=== PATIENT | female | born 1955 | race Caucasian/White ===

== ENCOUNTER 2024-04-15 19:08 | Day surgery (SDC) | payer MEDICARE, MEDICAID, SELFPAY ==
[2024-04-15] VITALS (8 sets, daily range): BP systolic 103–147; BP diastolic 61–93; PULSE 58–82; RESP 18–21; TEMP 36.1; O2SAT 96–99; BMI 33.7
--- NOTE | 2024-04-15 19:45 | SUR.PHASEII ---
Addendum entered by Ca Humphrey RN 04/15/24 20:00: Pt. is receiving 02 via trach/vent at 40%. 02 saturation at 97%. Original Note: Pt. arrived to recovery via SHASHI sullivan at bedside, pt. is non-verbal, eyes closed, trach in place, pt. not receiving supplemental 02 at this time, VSS, lung sounds clear, with tracheal sounds noted on inspiration, peg tube present and intact upon arrival to recovery. Report received from Laisha GLORIA.
--- NOTE | 2024-04-15 20:06 | SUR.PHASEII ---
Called and gave report on pt. s/p procedure to Tonia GLORIA in subacute unit.
--- NOTE | 2024-04-15 20:12 | SUR.PHASEII ---
Pt. transferred to subacute room 125 via SHASHI sullivan at bedside, pt. connected to vent, 02 saturation at 97%, no signs of pain or nausea at this time, IV flushed and patent, Tonia GLORIA assumed care of pt.
== END 2024-04-15 20:12 | disposition skilled nursing facility (03) ==
PROVIDERS: Referring Provider Specialist; Visit Provider Specialist
PROC: (CPT 43239; principal; 2024-04-15 18:30)
DX: K20.91 Esophagitis, unspecified with bleeding (principal); K29.71 Gastritis, unspecified, with bleeding; D62 Acute posthemorrhagic anemia
CPT/HCPCS: 43235; J2250; J3010

== ENCOUNTER 2024-04-28 09:59 | Inpatient (IN) | payer MEDICARE, MEDICAID, SELFPAY ==
[2024-04-28] VITALS (23 sets, daily range): BP systolic 74–131; BP diastolic 46–90; PULSE 95–123; RESP 20–100; TEMP 36–37.4; O2SAT 97–100
--- NOTE | 2024-04-28 10:36 | XR_ITS ---
Examination: AP chest single view Technique one AP portable upright chest single view Exam date and time: April 28, 2024 1040 hours Comparison April 25, 2021 INDICATIONS: Difficulty breathing today. FINDINGS: Mild prominence left ventricle Opacity left base consistent with pneumonia obscuring detail left hemidiaphragm Mild vascular congestion Tracheostomy tube tip 5.4 cm above kunal IMPRESSION: Left base pneumonia
--- NOTE | 2024-04-28 10:42 | PD.EDRECHK ---
ED Recheck Abnl Lab Rx-RME/HPI General Chief Complaint: General Adult/Misc Complain Stated Complaint: LOW HEMOGLOBIN, NEEDS BLOOD TRANSFUSION Time Seen by Provider: 04/28/24 10:35 Arrival date/time: 04/28/24 09:59 RME / HPI RME / HPI narrative: 69 year old female with history of anoxic brain damage, persistent vegetative state, chronic respiratory failure, s/p tracheostomy with ventilator dependance, s/p G-tube placement, hypertension presents to the ED brought in from the subacute unit within this facility for evaluation of low hemoglobin levels. Per RN, staff at subacute reported labs today revealed a hemoglobin of 3.6 and hematocrit of 12.4. Per RN, patient was sent here for blood transfusion. Related Data Home Medications ?Medication ?Instructions ?Recorded ?Confirmed clonazepam 0.5 mg disintegrating 0.5 mg feeding tube TID 04/14/21 04/26/21 tablet furosemide 20 mg tablet (Lasix) 20 mg feeding tube QDAY 04/14/21 04/26/21 levetiracetam 750 mg tablet 750 mg PO BID 04/14/21 04/26/21 (Keppra) multivitamin with minerals 1 tab PO DAILY 04/14/21 04/26/21 acetaminophen 325 mg tablet 650 mg PO QID PRN Pain 04/16/21 04/26/21 (Tylenol) bisacodyl 10 mg rectal suppository 10 mg UT DAILY PRN Constipation 04/16/21 04/26/21 (Dulcolax (bisacodyl)) sodium phosphates 19 gram-7 118 ml UT QDAY PRN Constipation 04/16/21 04/26/21 gram/118 mL enema (Fleet Enema) Previous Rx's ?Medication ?Instructions ?Recorded amiodarone 200 mg tablet 200 mg PO BID 30 days #60 tabs 04/19/21 aspirin 81 mg capsule 81 mg PO QDAY #30 caps 04/19/21 amoxicillin 500 mg-potassium 1 tab PO Q8H #2 tabs 04/27/21 clavulanate 125 mg tablet (Augmentin) doxycycline calcium 50 mg/5 mL 100 mg (10 mL) PO QDAY #473 mL 04/27/21 oral syrup Allergies Allergy/AdvReac Type Severity Reaction Status Date / Time No Known Allergies Allergy Verified 04/15/24 19:15 Review of Systems Review of Systems ROS Unobtainable: unobtainable due to medical condition Past Medical History Past Medical History NEUROLOGIC: Positive Neurological Disorders (obtained from medical records) and Seizures CARDIAC: Positive Hypertension RESPIRATORY: Positive Asthma GASTROINTESTINAL: Positive Gastrointestinal Disorders and Gastroesophageal Reflux Disease OTHER HISTORY: Positive Blood Transfusions Social History SMOKING STATUS: Unknown if ever smoked ED Exam Narrative Physical exam: Patient is ventilator dependent [place] morbidly obese does not give eye contact and this is the baseline mental status as reported from the subacute where she came from Physical Exam:? General:?? ? Patient is from subacute The vital signs were reviewed. The patient is arousable with verbal and painful stimuli but immediately falls back to sleep and becomes inattentive. Patient had a spontaneous respirations that required no assistance at this time . O2 sats are adequate at the present time. Head & Scalp:?? ? Normocephalic, atraumatic. Face:?? ? Patient is very pale [place] and obese appears normal and is without lesions, deformity. No apparent trauma Ears:??? Left external pinna appears normal. Right external pinna appears normal. Eyes:?? ? The sclera is anicteric. The Left and Right Orbit/Lid/Conjunctiva appears normal without swelling, discoloration or injection. Nose: ? ? The nose is without deformity, discharge or tenderness; Throat: ? ? Appears normal.? The mucous membranes are pink and moist without exudates, redness or mass seen.? The tongue appears normal. Neck: The neck is supple and no apparent mass or adenopathy. Chest: The chest wall is normal in size and symmetry and has no chest wall tenderness or crepitus. The patient displays adequate ventilator effort without retractions, accessory muscle use. Patient has adequate air movement bilaterally with no wheezes and no rales. ? Cardiovascular: Regular rate and rhythm; No murmurs, rubs, or gallops; Gastrointestinal: The abdomen appears obese there is no obvious response to palpation. No obvious hernias or mass. The abdomen is soft and benign, non-distended, with no pain, no guarding and no rebound tenderness.? Bowel sounds are present and normal sounding.? No CVA tenderness. Genitourinary: No apparent injury or trauma. Back/Spine: No apparent injury or trauma Extremities/Musculoskeletal/lymphatic:? ? ? The bilateral upper and lower extremities are warm. There is no evidence of arterial? insufficiency. There is no morbid obese extremities Skin:? The skin is warm, dry and intact.? No rashes. No petechia. No purpura. No abnormal bruising.? The color is appropriate with no cyanosis. Mental status/Psychiatric: Mental status is obtunded no further evaluation can be made Neurological:? The patient is obtunded. Minimal response to pain baseline nonverbal Course Quality Measures none Orders Category Date Time Status Admit to Inpatient Status Routine Admission 04/28/24 11:23 Active Patient Condition Routine Admission 04/28/24 11:23 Ordered Insert IV NOW Care 04/28/24 10:36 Active Insert IV NOW Care 04/28/24 10:36 Active Notify provider NEEDED Care 04/28/24 11:23 Active Transfuse,blood/blood products NOW Care 04/28/24 10:36 Active XR chest 1V portable Stat Exams 04/28/24 10:36 Completed CBC Stat Lab 04/28/24 10:51 Received Comprehensive Metabolic Panel Stat Lab 04/28/24 10:51 Completed Lactate (Lactic Acid) Stat Lab 04/28/24 10:51 Results Lipase Stat Lab 04/28/24 10:51 Completed Prothrombin Time with INR Stat Lab 04/28/24 10:51 Completed Red Blood Cells Stat Lab 04/28/24 10:51 Results Type and Screen Stat Lab 04/28/24 10:51 Results Urinalysis Stat Lab 04/28/24 10:36 Ordered Urinalysis, C/S if Indicated Stat Lab 04/28/24 10:36 Ordered Venous Blood Gas Stat Lab 04/28/24 10:51 Completed Sodium Chloride 0.9% 1000 ml [Ns] 1,000 ml Med 04/28/24 10:45 Active IV 100 mls/hr Code Status Routine Oth 04/28/24 11:22 Ordered Vital Signs Vital signs: Vital Signs Temperature 99.0 F 04/28/24 10:09 Pulse Rate 114 H 04/28/24 10:09 Respiratory Rate 24 H 04/28/24 10:09 Blood Pressure 101/63 04/28/24 10:09 Pulse Oximetry (%) 100 04/28/24 10:09 Oxygen Delivery Method Mechanical Ventilation 04/28/24 10:09 Pulse ox is 100% on mechanical ventilator which is adequate. Recheck / Abnormal Lab / Rx MDM Narrative MDM Narrative:: Patient was sent from [facility] for severe anemia with no known source of blood loss. Hemoglobin was reported to be 3.6. Patient on need to come in the hospital be transfused. Note the patient is tachycardic. Rectal exam was done which was heme positive. Spoke with the resident on-call for Dr. Cuellar and they will be admitting the patient for transfusions. They stated they would also consult with Dr. Del Cid decide if she is [place] be a candidate for scoping note the stool was brown in color and there is no hematochezia reported but it was strongly positive. Patient has low hemoglobin of 3.6 from this morning's lab draw was sent here from [facility] follow-up repeat hemoglobin is still pending PT/INR within normal limits venous blood gas pH is 7.61 with respiratory alkalosis. Sodium 136 potassium 4.1 CO2 is elevated 32.5 anion gap is 6 BUN is elevated 55 creatinine 0.9 consistent with prerenal azotemia probably dehydration secondary to anemia. Lactic acid is 2.9 again again presumed secondary to severe anemia as there is no obvious infection source clinically Evidently patient has no decision maker is not conserved and is being treated in subacute therefore we will give blood accordingly and get her hemoglobin is up and I asked the hospitalist to address scoping and further workup with Dr. Del Cid Patient data External records reviewed:: [facility] previous records (I reviewed labs performed at [facility] today and H&P from 04/15/2024) Clinical information provided by:: other (specify) (RN) Social determinants that could affect healthcare access:: housing (Subacute resident ) Patient has the following chronic illnesses:: anoxic brain damage, persistent vegetative state, chronic respiratory failure, s/p tracheostomy with ventilator dependance, s/p G-tube placement, hypertension How is presenting disease/condition affected by chronic disease/condition?: exacerbated by Evaluation data The following diagnostics were reviewed and interpreted by me:: lab results Lab and/or radiology exams considered but not ordered:: None Interpretation Summary: Ordering Physician: Nilesh Winters MD Date of Service: 04/28/24 Procedure(s): XR chest 1V portable Accession Number(s): [id number] cc: Nilesh Winters MD; Sandeep Saenz MD~ Examination: AP chest single view Technique one AP portable upright chest single view Exam date and time: April 28, 2024 1040 hours Comparison April 25, 2021 INDICATIONS: Difficulty breathing today. FINDINGS: Mild prominence left ventricle Opacity left base consistent with pneumonia obscuring detail left hemidiaphragm Mild vascular congestion Tracheostomy tube tip 5.4 cm above kunal IMPRESSION: Left base pneumonia Dictated By: Sandeep Saenz MD Signed By: <Electronically signed by Sandeep Saenz MD in OV> 04/28/24 1055 Medications / Prescriptions Medications or Prescriptions considered but not ordered:: None Medication administrations:: Medication Administration History Acetaminophen (Acetaminophen 325 Mg Tablet) 650 mg PO Q6H PRN PRN Reason: Fever >101.5 Stop: 05/28/24 11:23 Acetaminophen (Acetaminophen 325 Mg Tablet) 650 mg PO Q6H PRN PRN Reason: PAIN SCALE 1-3 (mild Stop: 05/28/24 11:23 Albuterol/Ipratropium (Albuterol/Ipratropium (Duoneb) Rt Aria 3 Ml Nebu) 3 ml INH Q6HRRT PRN PRN Reason: wheezing Stop: 05/28/24 12:59 Dextrose (Dextrose 50%-Water Inj 50 Ml Syringe) 25 ml IV Q15MIN PRN PRN Reason: BG 50-70 responsive npo pt Stop: 05/28/24 11:38 Dextrose (Dextrose 50%-Water Inj 50 Ml Syringe) 50 ml IV Q15MIN PRN PRN Reason: BG <50 OR BG <70 & pt unresponsive Stop: 05/28/24 11:38 Glucagon (Glucagon Inj 1 Mg Vial) 1 mg IM Q15MIN PRN PRN Reason: BG <70, and no IV access Sodium Chloride (Ns) 1,000 mls @ 100 mls/hr IV .Q10H MARTINEZ Stop: 05/28/24 10:44 Piperacillin/Tazobactam/Dextrose (Zosyn) 3.375 gm in 50 mls @ 12.5 mls/hr IV Q8HR MARTINEZ Stop: 05/05/24 21:59 Ondansetron HCl (Ondansetron Inj 2 Mg/Ml Inj 2 Ml) 4 mg IV Q6H PRN; Protocol PRN Reason: NAUSEA OR VOMITING Stop: 05/28/24 11:23 Pantoprazole Sodium (Pantoprazole Inj 40 Mg Vial) 40 mg IVP Q12HR MARTINEZ Stop: 05/28/24 20:59 Discontinued Medications Piperacillin/Tazobactam/Dextrose (Zosyn) 3.375 gm in 50 mls @ 100 mls/hr IV X1 ONE Stop: 04/28/24 12:14 Last Infusion: 04/28/24 12:48 Dose: Infused Documented By: Admin: 04/28/24 12:00 Dose: 100 mls/hr Documented By: GM Polyethylene Glycol/Electrolytes (Na Lopez/Nahco3/Carl/Peg (Golytely) 4,000 Ml Btl) 4,000 ml GT X1 ONE Stop: 04/28/24 11:40 See above Consultations Consultation(s) initiated? (list below): Yes Consultation #1 (Physician, Specialty, Details): I spoke with resident Dr. Mann working with Dr. Cuellar. Discussed patients PMHx, HPI, ED course, exam findings, labs, and radiology results. The hospitalist agree to accept the patient for admission. Time: 11:18 Diagnosis Recheck Differential Diagnosis: other (anemia, GI bleed, sepsis, melena, hematochezia ) Most likely diagnosis given after review of the tests above:: Severe anemia Tracheostomy dependent Ventilator dependent G Tube feedings Guaiac positive stools Admission Indicated Admission indicated?: indicated Admission Request Was there a request for admission?: Yes Admission Attestation Admission request attestation: Discussed case with [] from Hospitalist service regarding admission. Discussed patients ED course, exam findings, labs, and radiology results. The Hospitalist [agrees,declines] to accept the patient for admission. Disposition Plan Disposition Plan: Admit Critical Care Time Critical Care Time Critical Care Time: Yes Total Critical Care Time (min.): 50 Attestation: The high probability of sudden, clinically significant deterioration in the patient's condition required the highest level of my preparedness to intervene urgently. The services I provided to this patient were to treat and/or prevent clinically significant deterioration. Services included the following: chart data review, reviewing nursing notes and/or old charts, documentation time, rural health consultant collaboration regarding findings and treatment options, medication orders and management, direct patient care, vital sign assessments and ordering, interpreting and reviewing diagnostic studies and lab tests. Aggregate critical care time includes only time during which I was engaged in work directly related to the patient's care, as described above, whether at bedside or elsewhere in the Emergency Department. It did not include time spent performing other reported procedures or the services of residents, students, nurses or physician assistants. Discharge Plan Plan Patient Disposition: Admit Acute Care w/in Hospital Disposition Comment: Hospitalist to admit Problem List Clinical Impression: Severe anemia, Tracheostomy dependent, Ventilator dependent, G tube feedings, Guaiac positive stools
[2024-04-28 11:11] LABS: Lactate (Lactic Acid) 2.9 mMol/L (0.4-2.0)
[2024-04-28 11:13] LABS: Base Excess, Venous 7 (-3-3); O2 Saturation, Venous 100 % (96-97); PCO2, Venous 30 mmHg (36-56); PO2, Venous 80 mmHg (15-58); pH, Venous 7.61 (7.33-7.66)
[2024-04-28 11:34] LABS: Prothrombin Time 11.2 Seconds (9.0-12.2)
[2024-04-28 11:40] LABS: Alanine Aminotransferase 37 U/L (10-49); Albumin, Serum 3.4 gm/dL (3.4-4.8); Anion Gap 6 (7-16); Aspartate Amino Transferase 53 U/L (0-34); BUN/Creatinine Ratio 61 Ratio (12-20); Bilirubin,Total 0.3 mg/dL (0.3-1.2); Blood Urea Nitrogen 55 mg/dL (9-23); Calcium 9.1 mg/dL (8.3-10.6); Carbon Dioxide 32.5 mMol/L (20.0-31.0); Chloride 98 mMol/L (98-107); Creatinine (Component) 0.9 mg/dL (0.6-1.3); Glucose 181 mg/dL (74-106); Osmolality,Calculated 292 (275-295); Potassium 4.1 mMol/L (3.4-5.1); Sodium 136 mMol/L (136-145); Total Protein 6.5 gm/dL (5.7-8.2); eGFR > 60 See Note
[2024-04-28 11:41] LABS: Albumin/Globulin Ratio 1.1 (1.2-2.2); Alkaline Phosphatase 102 U/L (46-116); Calcium (Corrected) 9.6 mg/dL (8.5-10.1); Globulin 3.1 gm/dL (2.3-3.5); Lipase 38 U/L (12-53)
[2024-04-28] MEDS: PIPER/TAZO 3.375 GM 3.375 GM/50 ML BAG IV ×2 (12:00→21:41)
[2024-04-28 12:22] LABS: Magnesium 1.8 mg/dL (1.6-2.6)
--- NOTE | 2024-04-28 13:04 | PC.CC ---
ASW, consulted regarding providing patient with blood as patient does not have a medical decision maker. ASW made contact with [facility] Sub-Acute SHARON Harris who reports that while patient is in Sub-Acute they make contact with [employer] Sher Kwong. ASW made telephone contact with Sher who reports he is not the medical decision maker for the patient while in the ED that there is no medical decision maker assigned to the patient. ASW consulted Dr. Winters who reports since this is an emergent case he can provide the patient with blood. ASW provided SHARON Harris with this update. Kimberly reports she is in the process of finding a medical decision maker for the patient but this is a process. ASW to remain available.
[2024-04-28 13:09] LABS: Collection Type, Urine Catheter; Squamous Epithelial Cell,Urine 0 /hpf (0-5)
--- NOTE | 2024-04-28 13:25 | ESHP_ITS ---
Documentation for date of: 04/28/24 HPI History of Present Illness Chief complaint: Low hemoglobin level History of present illness: This patient is a 69-year-old female with past medical history of seizures, anoxic brain injury with persistent vegetative state chronic respiratory failure status post tracheostomy with ventilator dependent and G-tube placement, history of hypertension, history of A-fib presented from subacute with low hemoglobin level. Per RN, staff at the subacute reported the patient's hemoglobin was significantly low at 3.6 and hematocrit 12.4. Patient was sent to ED for further evaluation. Patient is nonverbal at baseline therefore majority history was taken from patient's chart. In the ED, patient's vitals showed blood pressure 101/63, tachycardia, tachypnea and mild temp 99. Patient is ventilating 100% on mechanical ventilator. Patient did had EGD on April 08 which showed gastritis pattern.EGD showed esophagitis, gastritis with erythema. On admission, blood labs showed hemoglobin 3.6, white count 17.4, platelet 233. Coagulation panel was unremarkable. VBG showed pH 7.61, pCO2 80 and oxygen saturation 100%. Chemistry panel showed sodium 136 potassium 4.1 and chloride 98. HCO3 32.5. BUN 55 and creatinine 0.9. Blood glucose 181. Lactic acidosis 2.9. Urine was turbid with WBC 30+ bacteria 4+. Imaging: Chest x-ray showed left base pneumonia. Urine culture was pending. PMH: As above Allergies: NKDA Home medications: Amiodarone 200 mg GGT once daily, guaifenesin, bisacodyl, Fleet enema, clonazepam, Keppra, multivitamin, Lasix, aspirin Patient is admitted for acute blood loss anemia likely GI bleed. Dr. Del Cid has been consulted for further evaluation. Review of Systems Review of Systems ROS Unobtainable: unobtainable due to mental status, unobtainable due to medical condition and due to endotracheal tube Past Medical History Past Medical History NEUROLOGIC: Positive Neurological Disorders (obtained from medical records) and Seizures CARDIAC: Positive Hypertension RESPIRATORY: Positive Asthma GASTROINTESTINAL: Positive Gastrointestinal Disorders and Gastroesophageal Reflux Disease OTHER HISTORY: Positive Blood Transfusions Social History SMOKING STATUS: Unknown if ever smoked Exam Vital Signs Temp Pulse Resp BP Pulse Ox O2 Del Method FiO2 99.0 F 102 H 20 102/51 L 100 Mechanical Ventilation 40 04/28/24 12:48 04/28/24 13:04 04/28/24 13:04 04/28/24 12:54 04/28/24 13:04 04/28/24 12:48 04/28/24 12:54 Narrative Exam GENERAL APPEARANCE: Patient is nonverbal, tracheostomy with mechanically ventilated. Pallor HEENT: NC, AT. MMM. EOMI, clear conjunctiva, oropharynx clear. NECK: Supple without lymphadenopathy. Tracheostomy tube seen. HEART: Regular rate and regular rhythm, normal S1/S2, no m/r/g LUNGS: Bilateral rhonchi heard on auscultation with coarse breath sounds ABDOMEN: Soft, nontender, nondistended with good bowel sounds heard. PEG tube in place. BACK: No CVAT, no obvious deformity. EXTREMITIES: Upper extremities in flexed posture. NEUROLOGICAL: Grossly nonfocal. Patient is nonverbal with tracheostomy and PEG tube. Skin: Warm and dry without any rash. Results: Labs 04/29/24 07:45 04/29/24 03:23 Labs: BMP 04/28/24 10:51 Sodium 136 Potassium 4.1 Chloride 98 Carbon Dioxide 32.5 H BUN 55 H Creatinine 0.9 Glucose 181 H Calcium 9.1 Liver Function 04/28/24 Range/Units 10:51 Total Bilirubin 0.3 (0.3-1.2) mg/dL AST 53 H (0-34) U/L ALT 37 (10-49) U/L Alkaline Phosphatase 102 (46-116) U/L Albumin 3.4 (3.4-4.8) gm/dL ABG Interpretation ABG results: 04/28/24 10:51 VBG pH 7.61 VBG pCO2 30 L VBG pO2 80 H VBG Base Excess 7 H Quality Measures Quality Measures VTE prophylaxis (SCDs) Advance care planning discussed with:: other Medications Home Medications and Allergies Home Medications ?Medication ?Instructions ?Recorded ?Confirmed ?Type furosemide 20 mg tablet (Lasix) 20 mg feeding tube QDAY 04/14/21 04/29/24 History levetiracetam 750 mg tablet 750 mg PO BID 04/14/21 04/29/24 History (Keppra) multivitamin with minerals 1 tab PO DAILY 04/14/21 04/29/24 History acetaminophen 325 mg tablet 650 mg PO QID PRN Pain 04/16/21 04/29/24 History (Tylenol) bisacodyl 10 mg rectal suppository 10 mg [place] DAILY PRN Constipation 04/16/21 04/29/24 History (Dulcolax (bisacodyl)) sodium phosphates 19 gram-7 118 ml [place] QDAY PRN Constipation 04/16/21 04/26/21 History gram/118 mL enema (Fleet Enema) Allergies Allergy/AdvReac Type Severity Reaction Status Date / Time No Known Allergies Allergy Verified 04/15/24 19:15 Visit Medications Acetaminophen (Acetaminophen 325 Mg Tablet) 650 mg PO Q6H PRN PRN Reason: Fever >101.5 Stop: 05/28/24 11:23 Acetaminophen (Acetaminophen 325 Mg Tablet) 650 mg PO Q6H PRN PRN Reason: PAIN SCALE 1-3 (mild Stop: 05/28/24 11:23 Albuterol/Ipratropium (Albuterol/Ipratropium (Duoneb) Rt Aria 3 Ml Nebu) 3 ml INH Q6HRRT PRN PRN Reason: wheezing Stop: 05/28/24 12:59 Dextrose (Dextrose 50%-Water Inj 50 Ml Syringe) 25 ml IV Q15MIN PRN PRN Reason: BG 50-70 responsive npo pt Stop: 05/28/24 11:38 Dextrose (Dextrose 50%-Water Inj 50 Ml Syringe) 50 ml IV Q15MIN PRN PRN Reason: BG <50 OR BG <70 & pt unresponsive Stop: 05/28/24 11:38 Glucagon (Glucagon Inj 1 Mg Vial) 1 mg IM Q15MIN PRN PRN Reason: BG <70, and no IV access Sodium Chloride (Ns) 1,000 mls @ 100 mls/hr IV .Q10H MARTINEZ Stop: 05/28/24 10:44 Piperacillin/Tazobactam/Dextrose (Zosyn) 3.375 gm in 50 mls @ 12.5 mls/hr IV Q8HR MARTINEZ Stop: 05/05/24 21:59 Ondansetron HCl (Ondansetron Inj 2 Mg/Ml Inj 2 Ml) 4 mg IV Q6H PRN; Protocol PRN Reason: NAUSEA OR VOMITING Stop: 05/28/24 11:23 Pantoprazole Sodium (Pantoprazole Inj 40 Mg Vial) 40 mg IVP Q12HR MARTINEZ Stop: 05/28/24 20:59 Discontinued Medications Piperacillin/Tazobactam/Dextrose (Zosyn) 3.375 gm in 50 mls @ 100 mls/hr IV X1 ONE Stop: 04/28/24 12:14 Last Infusion: 04/28/24 12:48 Dose: Infused Polyethylene Glycol/Electrolytes (Na Lopez/Nahco3/Carl/Peg (Golytely) 4,000 Ml Btl) 4,000 ml GT X1 ONE Stop: 04/28/24 11:40 Assessment & Plan Plan Summary: This patient is a 69-year-old female with past medical history of seizures, anoxic brain injury with persistent vegetative state chronic respiratory failure status post tracheostomy with ventilator dependent and G- tube placement, history of hypertension, history of A-fib presented from subacute with low hemoglobin level. Per RN, staff at the subacute reported the patient's hemoglobin was significantly low at 3.6 and hematocrit 12.4. Patient was sent to ED for further evaluation. Patient is nonverbal at baseline therefore majority history was taken from patient's chart. In the ED, patient's vitals showed blood pressure 101/63, tachycardia, tachypnea and mild temp 99. Patient is ventilating 100% on mechanical ventilator. Patient did had EGD on April 08 which showed gastritis pattern.EGD showed esophagitis, gastritis with erythema. #Acute severe blood loss anemia due to GI bleed #Hypotension #Esophagitis with gastritis pattern per EGD -DDx GI bleed vs aspirin use -Patient presented from subacute with blood loss hemoglobin 3.6. Patient is nonverbal at baseline. -Labs showed hemoglobin 3.6, white count 17.4, platelet 233. Coagulation panel was unremarkable. VBG showed pH 7.61, pCO2 80 and oxygen saturation 100%. Chemistry panel showed sodium 136 potassium 4.1 and chloride 98. HCO3 32.5. BUN 55 and creatinine 0.9. Blood glucose 181. Lactic acidosis 2.9. Urine was turbid with WBC 30+ bacteria 4+. -EGD showed esophagitis with gastritis present on April 08, 2024. Plan: -2 units PRBC -Post H&H follow-up -GI consulted, appreciate recommendations -Started GoLytely prep for possible colonoscopy tomorrow -Tube feeds on hold -Refer to registered dietitian -H&H every 6 hourly -Prbc if Hgb remains below 7 -F/u morning labs -Replete electrolytes as necessary #Acute on chronic hypoxic respiratory failure 2/2 Healthcare acquired pneumonia s/p trach tube #Persistent vegetative state post Anoxic brain injury #Metabolic alkalosis: -Imaging: Chest x-ray showed left base pneumonia. -Previous ET sec grew Klebsiella Plan: -Continuing IV zosyn -Cont Ventilator and adjusting Vent settings -Ref to RT #?UTI -Patient's UA showed WBC 30+ bacteria with turbidity. Plan: -Continuing IV zosyn -F/U Urine cx #Lactic acidosis Type A -related to hypotension vs blood loss Plan: -Treating underlying infection and transfusing blood -Trend lactic acid #Leukocytosis: -wbc 15.1 Plan: -Monitor for fever spikes -Transfusing Blood #Hx of seizures #Hx Atrial Fib #Hx of GERD and constipation #S/P Peg tube placement -EKG showed sinus tacy -Chadsvasc score 1 Plan: -Resume home meds including keppra,clonazepam and amiodarone -Seizure precautions -Stopped aspirin due to GI bleed Health Maintanance: Diet: PEG tube,Go lYtely prep GI prophylaxis:Protonix q12h DVT prophylaxis: SCDs Code status: DNR/DNI Disposition: Patient is admitted for acute blood loss anemia likely GI bleed. Dr. Del Cid has been consulted for further evaluation. -- Patient was seen and discussed with attending Dr. Alisa Mann MD, PGY-1 Attending Provider Attestation/Addendum I have examined the patient, reviewed labs and imaging findings, discussed the case with the resident(s), and reviewed entered orders. I agree with the plan of care as outlined in this note, with these additional summaries/recommendations: Patient seen at bedside. Patient is trached and pegged and no history can be obtained. She presented from subacute facility with abnormal hematology panel. Hemoglobin was found to be 3.6. FOBT positive in the ED. 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 Given the life-threatening nature of patient's GI bleed consent is implied and we will transfuse 2 units PRBCs. Gastroenterology consulted, recommendations appreciated. Patient previously underwent EGD but was not able to complete colonoscopy as consent was not able to be obtained. Patient has no family and is not conserved. We will follow-up with social services manager for recommendation like we will have two-physician sign consent for colonoscopy. Continue to monitor H&H. Start IV fluids. Start IV Zosyn for possible UTI and follow-up urine culture. Consult dietary for tube feeds. Hold chemical anticoagulation. Repeat hematology and chemistry panel in AM. Dr. Cuellar
[2024-04-28 13:44] LABS: Bacteria,Urine 4+; Bilirubin,Urine Negative (Negative); Blood,Urine Negative (Negative); Clarity,Urine Turbid (Clear/Hazy); Color,Urine Lt-Yellow (Lt Yel-Yel); Glucose, Urine Negative (Negative); Ketones,Urine Negative (Negative); Leukocyte Esterase,Urine Positive (Negative); Nitrite,Urine Negative (Negative); Protein,Urine Negative (Neg - Trace); RBC,Urine 1 /hpf (0-3); Specific Gravity,Urine 1.015 (1.001-1.035); Urobilinogen,Urine Negative mg/dL (0.0-1.0); WBC,Urine 30 /hpf (0-5)
[2024-04-28 13:50] LABS: Culture Indicated,Urine Yes
[2024-04-28 14:04] LABS: Reflex Lactate? Y
[2024-04-28 14:30] LABS: Lactic Acid, 3 HR 2.9 mMol/L (0.4-2.0)
[2024-04-28 14:35] LABS: Basophils % (Auto) 0 % (0-2.5); Eosinophils % (Auto) 0 % (0-10); Immature Granulocytes % (Auto) 1 % (0-0); Immature Granulocytes Auto 0.14 Thou/mm3 (0.00-0.00); Lymphocytes # (Auto) 1.7 Thou/mm3 (1.0-4.8); Lymphocytes % (Auto) 11 % (10-50); Mean Corpuscular HGB Conc 28.8 g/dl (31.0-37.0); Mean Corpuscular Hemoglobin 25.5 pg (25.0-35.0); Mean Corpuscular Volume 89 fL (80-100); Monocytes # (Auto) 1.6 Thou/mm3 (0.0-0.8); Monocytes % (Auto) 10 % (0-12); Neutrophils # (Auto) 11.7 Thou/mm3 (1.8-7.7); Neutrophils % (Auto) 77 % (37-80); Nucleated Red Blood Cell # 0.18 Thou/mm3 (0.00-0.00); Nucleated Red Blood Cell % 1 /100 WBC (0); Platelet Count 211 Thou/mm3 (140-440); RDW Standard Deviation 104.3 fL (36.4-46.3); Red Blood Count 1.41 Miln/mm3 (4.00-5.20); White Blood Count 15.1 Thou/mm3 (3.6-11.0)
[2024-04-28 14:38] LABS: Hematocrit 12.5 % (36.0-46.0); Hemoglobin 3.6 g/dL (12.0-16.0)
[2024-04-28] MEDS: SODIUM CHLORIDE 0.9% 1000 ML 1,000 ML 100 ML IV (15:09)
[2024-04-28 19:49] LABS: Hemoglobin 6.8 g/dL (12.0-16.0)
[2024-04-28] MEDS: Magnesium Sulfate 2 GM Ivpb 2 GM/50 ML BAG IV (19:49)
--- NOTE | 2024-04-28 21:28 | ESCONSULT_ITS ---
HPI Data of Consult Requesting Physician: Vj Cuellar MD Primary Care Provider: Physician No Primary/Family Consult Narrative Reason for consult: Anemia blood loss, Hemoccult positive stool History of present illness: 69 years old female evaluated at the request of the internal medicine team Patient has anoxic brain injury requiring PEG placement and tracheostomy I was consulted by the SNF when she was found to have a drop in hemoglobin hematocrit to 6.5 and 19 and underwent upper endoscopy which showed gastritis and esophagitis She was in the process of getting a colonoscopy however it is very difficult to get a consent so that was not scheduled pending consent from the [facility] cc:: cc: Vj Cuellar MD Review of Systems Review of Systems ROS Unobtainable: unobtainable due to medical condition Meds Home Medications and Allergies Home Medications ?Medication ?Instructions ?Recorded ?Confirmed ?Type furosemide 20 mg tablet (Lasix) 20 mg feeding tube QDAY 04/14/21 04/26/21 History levetiracetam 750 mg tablet 750 mg PO BID 04/14/21 04/26/21 History (Keppra) multivitamin with minerals 1 tab PO DAILY 04/14/21 04/26/21 History acetaminophen 325 mg tablet 650 mg PO QID PRN Pain 04/16/21 04/26/21 History (Tylenol) bisacodyl 10 mg rectal suppository 10 mg [place] DAILY PRN Constipation 04/16/21 04/26/21 History (Dulcolax (bisacodyl)) sodium phosphates 19 gram-7 118 ml [place] QDAY PRN Constipation 04/16/21 04/26/21 History gram/118 mL enema (Fleet Enema) Allergies Allergy/AdvReac Type Severity Reaction Status Date / Time No Known Allergies Allergy Verified 04/15/24 19:15 Exam Vital Signs Temp Pulse Resp BP Pulse Ox O2 Del Method O2 Flow Rate 97.8 F 96 25 H 120/61 100 Mechanical Ventilation 40 04/28/24 18:56 04/28/24 18:56 04/28/24 18:56 04/28/24 18:56 04/28/24 18:56 04/28/24 18:34 04/28/24 18:56 FiO2 40 04/28/24 18:32 Routine Respiratory Exam Comments: Ventilated via tracheostomy Routine Abdominal Exam Comments: G-tube in place Results Labs 04/28/24 19:32 04/28/24 10:51 Labs: Short CBC 04/28/24 04/28/24 Range/Units 10:51 19:32 WBC 15.1 H (3.6-11.0) Thou/mm3 Hgb 3.6 L* 6.8 L* D (12.0-16.0) g/dL Hct 12.5 L* 21.0 L* (36.0-46.0) % Plt Count 211 (140-440) Thou/mm3 BMP 04/28/24 10:51 Sodium 136 Potassium 4.1 Chloride 98 Carbon Dioxide 32.5 H BUN 55 H Creatinine 0.9 Glucose 181 H Calcium 9.1 Liver Function 04/28/24 Range/Units 10:51 Total Bilirubin 0.3 (0.3-1.2) mg/dL AST 53 H (0-34) U/L ALT 37 (10-49) U/L Alkaline Phosphatase 102 (46-116) U/L Albumin 3.4 (3.4-4.8) gm/dL Urine 04/28/24 Range/Units 12:52 Urine Color Lt-Yellow (Lt Yel-Yel) Urine Clarity Turbid A (Clear/Hazy) Urine pH 5.0 (5.0-7.0) Ur Specific [place] 1.015 (1.001-1.035) Urine Protein Negative (Neg - Trace) Urine Glucose (UA) Negative (Negative) ABG Interpretation ABG results: 04/28/24 10:51 VBG pH 7.61 VBG pCO2 30 L VBG pO2 80 H VBG Base Excess 7 H Assessment and Plan Additional Assessment & Plan Additional Plan: # Anemia blood loss requiring blood transfusion # Hemoccult positive stool # Anoxic brain injury requiring tracheostomy and mechanical ventilation and gastrostomy tube placement Plan GoLytely prep via the G-tube Once cleared we will schedule the colonoscopy with possible therapeutic intervention under intravenous moderate sedation Agree with the blood transfusion Thank you very much for the opportunity to participate in the care of this patient
[2024-04-28] MEDS: levETIRAcetam LIQD 500 MG/5 ML UDC 750 MG GT (21:39)
[2024-04-28] MEDS: clonazePAM 0.5 MG TABLET GT (21:40)
[2024-04-28] MEDS: PANTOPRAZOLE INJ 40 MG VIAL IVP (21:41)
[2024-04-28] MEDS: GLYCOPYRROLATE 1 MG TABLET GT (21:54)
[2024-04-28] MEDS: NA SU/NAHCO3/KC/PEG (Golytely) 4,000 ML BTL 4000 ML GT (21:55)
[2024-04-28] MEDS: RINGERS LACTATED 500 ML 500 ML 999 ML IV (21:56)
[2024-04-28] MEDS: AMIODARONE HCL 200 MG TABLET 100 MG GT (22:03)
--- NOTE | 2024-04-28 22:12 | PC.NURSE ---
Dr. Harrell made aware of post H/H after transfusion of 2 units of PRBC. Per Dr. Harrlel give another unit of PRBC now and x1 of IV lasix 20 mg now; She states she will place orders.
[2024-04-28] MEDS: FUROSEMIDE INJ 10 MG/ML VIAL 2 ML 20 MG IVP (22:47)
--- NOTE | 2024-04-28 23:00 | PC.NURSE ---
Per Dr. Del Cid start golylty through peg tube at 300cc/hr until pts bowel movements are clear for colonoscopy tomorrow and attempt to get consent. Golytly started through peg tube at 300cc/hr now.
[2024-04-29] VITALS (14 sets, daily range): BP systolic 96–137; BP diastolic 56–87; PULSE 70–951; RESP 2–26; TEMP 36–36.3; O2SAT 40–100; BMI 37.7; BMI 37.5
[2024-04-29] MEDS: SODIUM CHLORIDE 0.9% 1000 ML 1,000 ML 100 ML IV (00:10)
[2024-04-29] MEDS: ALBUTEROL/IPRATROPIUM (Duoneb) RT SOL 3 ML NEBU INH (02:08)
--- NOTE | 2024-04-29 02:48 | PC.NURSE ---
x1 unit of PRBC transfused now. Pt has an order for post H/H lab draw at this time. Per Dr. Adelina carrasquillo to draw and include 0500 AM labs at this time as well. Lab made aware.
--- NOTE | 2024-04-29 02:59 | EKG_ITS ---
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[place] : 1955 Requested By: Aditi Sahu Order Number: [id number] Reading MD: Aditi Sahu Measurements Intervals [place] Rate: 110 P: 182 [place]: 236 QRS: 72 QRSD: 87 T: 61 QT: 354 QTc: 479 Interpretive Statements SINUS TACHYCARDIA WITH FIRST DEGREE AV BLOCK WITH OCCASIONAL VENTRICULAR PREMATURE COMPLEXES LOW QRS VOLTAGE IN PRECORDIAL LEADS MINIMAL ST DEPRESSION Compared to ECG 05/20/2021 10:05:47 Ventricular premature complex(es) now present First degree AV block now present ST (T wave) deviation now present Supraventricular rhythm no longer present T-wave abnormality no longer present /store/S0/[id number]/ecg/[id number].pdf
[2024-04-29 03:35] LABS: Lactate (Lactic Acid) 2.4 mMol/L (0.4-2.0)
[2024-04-29 03:52] LABS: Partial Thromboplastin Time 22.9 Seconds (22.0-36.0); Prothrombin Time 10.7 Seconds (9.0-12.2)
[2024-04-29 04:20] LABS: Hematocrit 28.3 % (36.0-46.0); Hemoglobin 9.3 g/dL (12.0-16.0)
[2024-04-29 04:41] LABS: Alanine Aminotransferase 50 U/L (10-49); Albumin, Serum 3.5 gm/dL (3.4-4.8); Albumin/Globulin Ratio 1.1 (1.2-2.2); Alkaline Phosphatase 110 U/L (46-116); Anion Gap 9 (7-16); Aspartate Amino Transferase 79 U/L (0-34); BUN/Creatinine Ratio 46 Ratio (12-20); Bilirubin,Total 0.8 mg/dL (0.3-1.2); Blood Urea Nitrogen 41 mg/dL (9-23); Calcium 8.7 mg/dL (8.3-10.6); Calcium (Corrected) 9.1 mg/dL (8.5-10.1); Carbon Dioxide 30.6 mMol/L (20.0-31.0); Chloride 102 mMol/L (98-107); Creatinine (Component) 0.9 mg/dL (0.6-1.3); Globulin 3.1 gm/dL (2.3-3.5); Glucose 154 mg/dL (74-106); Magnesium 2.1 mg/dL (1.6-2.6); Osmolality,Calculated 296 (275-295); Phosphorous 3.4 mg/dL (2.4-5.1); Potassium 3.9 mMol/L (3.4-5.1); Sodium 142 mMol/L (136-145); Thyroid Stimulating Hormone 13.28 uIU/mL (0.55-4.78); Total Protein 6.6 gm/dL (5.7-8.2); eGFR > 60 See Note
[2024-04-29] MEDS: PIPER/TAZO 3.375 GM 3.375 GM/50 ML BAG IV ×3 (05:09→21:35)
[2024-04-29 06:33] LABS: Reflex Lactate? Y
[2024-04-29 08:01] LABS: Lactic Acid, 3 HR 2.9 mMol/L (0.4-2.0)
[2024-04-29] MEDS: RINGERS LACTATED 1000 ML 500 ML 999 ML IV (08:05)
[2024-04-29 08:30] LABS: Free T4 (Free Thyroxine) 0.68 ng/dL (0.89-1.76); Phosphorous 3.1 mg/dL (2.4-5.1)
[2024-04-29 08:42] LABS: Hematocrit 26.2 % (36.0-46.0)
--- NOTE | 2024-04-29 09:20 | PC.DIETICIAN ---
Nutrition prescription Promote with Fiber at 20 ml/hr via PEG tube by pump. Advance 10 ml every 8 hrs to goal rate of 50 ml/hr x 24 hrs. If no IV fluids, water flushes of 45 ml/hr (or per MD).
[2024-04-29 09:22] LABS: Hemoglobin 8.6 g/dL (12.0-16.0)
--- NOTE | 2024-04-29 09:24 | PC.SS ---
SS contacted SHARON Srinivasan from [facility] in regards to Decision maker, Zarina reported that patient was found down unresponsive at a home ten years ago and since then there has not been no decision maker. She reports that she has attempted to contact APS multiple times as well as attempted to have patient conserved, however gets declined because patient is in acute care. Zarina has also attempted to file a missing person file, however has been unsuccessful. Zarina also reported that The [facility] of [facility]ging, Sher Kwong [phone], only makes decision only if patient is in the halfway care and can only makes decisions for evasive procedures. At this time there is no decision maker for patient.
[2024-04-29] MEDS: levETIRAcetam LIQD 500 MG/5 ML UDC 750 MG GT ×2 (09:28→21:34)
[2024-04-29] MEDS: AMIODARONE HCL 200 MG TABLET 100 MG GT (09:29)
[2024-04-29] MEDS: PANTOPRAZOLE INJ 40 MG VIAL IVP ×2 (09:29→21:35)
[2024-04-29] MEDS: GLYCOPYRROLATE 1 MG TABLET GT (09:30)
[2024-04-29] MEDS: clonazePAM 0.5 MG TABLET GT ×2 (09:30→21:36)
[2024-04-29] MEDS: SODIUM CHLORIDE 0.9% 1000 ML 1,000 ML 75 ML IV (10:38)
--- NOTE | 2024-04-29 10:42 | PD.RESPRO ---
Documentation for date of: 04/29/24 Subjective Subjective Interval history: Patient was seen and examined at the bedside this morning. Patient is nonverbal at baseline. Overnight, patient received 2 units PRBC which improved hemoglobin to 9.3 however downtrending to 8.0 this afternoon. Colonoscopy consent was signed by 2 physicians as she does not have conservatorship including myself and GI specialist Dr. Del Cid. Vitals were stable patient is currently saturating well on mechanical ventilator with tracheostomy tube. Abdomen was firm however bowel sounds were active. Rest of the labs showed kidney functions stable. Lactic acid was 2.9 therefore IV fluids were started. Mildly elevated AST and ALT. TSH 13.28 and free T4 0.68. Will wait for colonoscopy possibly tomorrow and follow-up with GI recommendations. Exam Vital Signs Temp Pulse Resp BP Pulse Ox O2 Del Method O2 Flow Rate 97.3 F 102 H 24 H 106/75 100 Mechanical Ventilation 40 04/29/24 07:54 04/29/24 09:29 04/29/24 07:54 04/29/24 09:29 04/29/24 07:54 04/29/24 07:54 04/29/24 07:54 FiO2 100 04/29/24 07:54 Narrative Exam GENERAL APPEARANCE: Patient is nonverbal, tracheostomy with mechanically ventilated. Pallor HEENT: NC, AT. MMM. EOMI, clear conjunctiva, oropharynx clear. NECK: Supple without lymphadenopathy. Tracheostomy tube seen. HEART: Regular rate and regular rhythm, normal S1/S2, no m/r/g LUNGS: Bilateral rhonchi heard on auscultation with coarse breath sounds ABDOMEN: Soft, nontender, nondistended with good bowel sounds heard. PEG tube in place. BACK: No CVAT, no obvious deformity. EXTREMITIES: Upper extremities in flexed posture. NEUROLOGICAL: Grossly nonfocal. Patient is nonverbal with tracheostomy and PEG tube. Skin: Warm and dry without any rash. Objective Labs 04/30/24 04:45 04/30/24 04:45 Labs: Laboratory Results - last 24 hr 04/28/24 04/28/24 04/28/24 10:51 12:52 14:19 WBC 15.1 H RBC 1.41 L* Hgb 3.6 L* Hct 12.5 L* MCV 89 MCH 25.5 MCHC 28.8 L RDW Std Deviation 104.3 H Plt Count 211 Neut % (Auto) 77 Lymph % (Auto) 11 [place] % (Auto) 10 Eos % (Auto) 0 Baso % (Auto) 0 Neut # (Auto) 11.7 H Lymph # (Auto) 1.7 [place] # (Auto) 1.6 H Eos # (Auto) 0.0 Baso # (Auto) 0.0 Immature Gran # (Auto) 0.14 H Absolute Nucleated RBC 0.18 H Immature Gran % 1 H Nucleated RBC % 1 H PT 11.2 INR 1.0 APTT VBG pH 7.61 VBG pCO2 30 L VBG pO2 80 H VBG O2 Sat (Blanche) 100 H VBG Base Excess 7 H Sodium 136 Potassium 4.1 Chloride 98 Carbon Dioxide 32.5 H Anion Gap 6 L BUN 55 H Creatinine 0.9 Estim Creat Clear Calc Not Performed. eGFR > 60 BUN/Creatinine Ratio 61 H Glucose 181 H Calculated Osmolality 292 Lactic Acid 2.9 H 2.9 H Calcium 9.1 Corrected Calcium 9.6 Phosphorus Magnesium 1.8 Total Bilirubin 0.3 AST 53 H ALT 37 Alkaline Phosphatase 102 Total Protein 6.5 Albumin 3.4 Globulin 3.1 Albumin/Globulin Ratio 1.1 L Lipase 38 TSH Free T4 Ur Collection Type Catheter Urine Color Lt-Yellow Urine Clarity Turbid A Urine pH 5.0 Ur Specific [place] 1.015 Urine Protein Negative Urine Glucose (UA) Negative Urine Ketones Negative Urine Blood Negative Urine Nitrite Negative Urine Bilirubin Negative Urine Urobilinogen (Auto) Negative Ur Leukocyte Esterase Positive Urine RBC 1 Urine WBC 30 H Ur Squamous Epith Cells 0 Urine Bacteria 4+ A Ur Culture Indicated? Yes Blood Type A Positive Antibody Screen NEGATIVE Crossmatch See Detail Blood Bank Wristband ID Yes 04/28/24 04/29/24 04/29/24 19:32 03:23 07:45 WBC RBC Hgb 6.8 L* D 9.3 L 8.6 L Hct 21.0 L* 28.3 L 26.2 L MCV MCH MCHC RDW Std Deviation Plt Count Neut % (Auto) Lymph % (Auto) [place] % (Auto) Eos % (Auto) Baso % (Auto) Neut # (Auto) Lymph # (Auto) [place] # (Auto) Eos # (Auto) Baso # (Auto) Immature Gran # (Auto) Absolute Nucleated RBC Immature Gran % Nucleated RBC % PT 10.7 INR 1.0 APTT 22.9 VBG pH VBG pCO2 VBG pO2 VBG O2 Sat (Blanche) VBG Base Excess Sodium 142 Potassium 3.9 Chloride 102 Carbon Dioxide 30.6 Anion Gap 9 BUN 41 H Creatinine 0.9 Estim Creat Clear Calc Not Performed. eGFR > 60 BUN/Creatinine Ratio 46 H Glucose 154 H Calculated Osmolality 296 H Lactic Acid 2.4 H 2.9 H Calcium 8.7 Corrected Calcium 9.1 Phosphorus 3.4 3.1 Magnesium 2.1 Total Bilirubin 0.8 D AST 79 H ALT 50 H Alkaline Phosphatase 110 Total Protein 6.6 Albumin 3.5 Globulin 3.1 Albumin/Globulin Ratio 1.1 L Lipase TSH 13.28 H Free T4 0.68 L Ur Collection Type Urine Color Urine Clarity Urine pH Ur Specific [place] Urine Protein Urine Glucose (UA) Urine Ketones Urine Blood Urine Nitrite Urine Bilirubin Urine Urobilinogen (Auto) Ur Leukocyte Esterase Urine RBC Urine WBC Ur Squamous Epith Cells Urine Bacteria Ur Culture Indicated? Blood Type Antibody Screen Crossmatch Blood Bank Wristband ID ABG Interpretation ABG results: 04/28/24 10:51 VBG pH 7.61 VBG pCO2 30 L VBG pO2 80 H VBG Base Excess 7 H Quality Measures Quality Measures VTE prophylaxis (SCDs) Advance care planning discussed with:: other Assessment & Plan Assessment Current Active Medications: Generic Name Dose Route Start Last Admin Trade Name Freq PRN Reason Stop Dose Admin Acetaminophen 650 mg 04/28/24 11:24 Acetaminophen 325 Mg Tablet PO 05/28/24 11:23 Q6H PRN Fever >101.5 Acetaminophen 650 mg 04/28/24 11:24 Acetaminophen 325 Mg Tablet PO 05/28/24 11:23 Q6H PRN PAIN SCALE 1-3 (mild Albuterol/Ipratropium 3 ml 04/28/24 11:36 04/29/24 02:08 Albuterol/Ipratropium (Duoneb) Rt Aria 3 Ml Nebu INH 05/28/24 12:59 3 ml Q6HRRT PRN Administration wheezing Amiodarone HCl 100 mg 04/28/24 13:45 04/29/24 09:29 Amiodarone Hcl 200 Mg Tablet GT 05/28/24 13:44 100 mg QDAY MARTINEZ Administration Bisacodyl 10 mg 04/28/24 13:42 Bisacodyl 10 Mg Supp PA 05/28/24 13:41 QDAY PRN CONSTIPATION Protocol Carbamide Peroxide 5 drop 04/28/24 14:00 04/29/24 10:03 Carbamide Peroxide Otic Aria 15 Ml Btl BOTH EARS 05/28/24 13:59 Not Given BID MARTINEZ Clonazepam 0.5 mg 04/28/24 14:00 04/29/24 09:30 Clonazepam 0.5 Mg Tablet GT 05/03/24 13:59 0.5 mg BID MARTINEZ Administration Dextrose 25 ml 04/28/24 11:39 Dextrose 50%-Water Inj 50 Ml Syringe IV 05/28/24 11:38 Q15MIN PRN BG 50-70 responsive npo pt Dextrose 50 ml 04/28/24 11:39 Dextrose 50%-Water Inj 50 Ml Syringe IV 05/28/24 11:38 Q15MIN PRN BG <50 OR BG <70 & pt unresponsive Glucagon 1 mg 04/28/24 11:39 Glucagon Inj 1 Mg Vial IM Q15MIN PRN BG <70, and no IV access Glycopyrrolate 1 mg 04/28/24 14:00 04/29/24 09:30 Glycopyrrolate 1 Mg Tablet GT 05/28/24 13:59 1 mg QDAY MARTINEZ Administration Guaifenesin 300 mg 04/28/24 13:42 Guaifenesin Syrup 200 Mg/10 Ml Udc GT 05/28/24 13:41 Q6H PRN COUGH Protocol Piperacillin/Tazobactam/Dextrose 3.375 gm in 50 mls @ 12.5 mls/hr 04/28/24 22:00 04/29/24 10:03 Zosyn IV 05/05/24 21:59 Infused Q8HR MARTINEZ Infusion Sodium Chloride 1,000 mls @ 75 mls/hr 04/29/24 09:56 04/29/24 10:38 Ns IV 05/29/24 09:55 75 mls/hr .[id number] MARTINEZ Administration Levetiracetam 750 mg 04/28/24 14:00 04/29/24 09:28 Levetiracetam Liqd 500 Mg/5 Ml Udc GT 05/28/24 13:59 750 mg BID MARTINEZ Administration Lorazepam 2 mg 04/28/24 13:47 Lorazepam 2 Mg/Ml Vial IVP 05/03/24 13:46 Q8HR PRN breakthrough seizures Magnesium Hydroxide 30 ml 04/28/24 13:47 Milk Of Magnesia Susp 30 Ml Udc GT 05/28/24 13:46 Q6H PRN CONSTIPATION Protocol Ondansetron HCl 4 mg 04/28/24 11:24 Ondansetron Inj 2 Mg/Ml Inj 2 Ml IV 05/28/24 11:23 Q6H PRN NAUSEA OR VOMITING Protocol Pantoprazole Sodium 40 mg 04/28/24 21:00 04/29/24 09:29 Pantoprazole Inj 40 Mg Vial IVP 05/28/24 20:59 40 mg Q12HR MARTINEZ Administration Polyethylene Glycol 17 gm 04/28/24 13:42 Polyethylene Glycol 17 Gm Packet PO 05/28/24 13:41 QDAY PRN CONSTIPATION Protocol Plan Summary: This patient is a 69-year-old female with past medical history of seizures, anoxic brain injury with persistent vegetative state chronic respiratory failure status post tracheostomy with ventilator dependent and G-tube placement, history of hypertension, history of A-fib presented from subacute with low hemoglobin level. Per RN, staff at the subacute reported the patient's hemoglobin was significantly low at 3.6 and hematocrit 12.4. Patient was sent to ED for further evaluation. Patient is nonverbal at baseline therefore majority history was taken from patient's chart. In the ED, patient's vitals showed blood pressure 101/63, tachycardia, tachypnea and mild temp 99. Patient is ventilating 100% on mechanical ventilator. Patient did had EGD on April 08 which showed gastritis pattern.EGD showed esophagitis, gastritis with erythema. #Acute severe blood loss anemia due to GI bleed #Hypotension #Esophagitis with gastritis pattern per EGD -DDx GI bleed vs aspirin use -Patient presented from subacute with blood loss hemoglobin 3.6. Patient is nonverbal at baseline. -Labs showed hemoglobin 3.6, white count 17.4, platelet 233. Coagulation panel was unremarkable. VBG showed pH 7.61, pCO2 80 and oxygen saturation 100%. Chemistry panel showed sodium 136 potassium 4.1 and chloride 98. HCO3 32.5. BUN 55 and creatinine 0.9. Blood glucose 181. Lactic acidosis 2.9. Urine was turbid with WBC 30+ bacteria 4+. -EGD showed esophagitis with gastritis present on April 08, 2024. Plan: -post H&H improved after 3 units PRBC to 9 down trended to 8.0 afternoon -Follow-up with H&H at midnight -Pending colonoscopy -Added IV fluids -GI consulted, appreciate recommendations -Continuing GoLytely prep for possible colonoscopy tomorrow -Tube feeds on hold -Refer to registered dietitian -Prbc if Hgb remains below 7 -F/u morning labs -Replete electrolytes as necessary #Acute on chronic hypoxic respiratory failure 2/2 Healthcare acquired pneumonia s/p trach tube #Persistent vegetative state post Anoxic brain injury #Metabolic alkalosis: Resolved #Leukocytosis -Imaging: Chest x-ray showed left base pneumonia. -Previous ET sec grew Klebsiella Plan: -Continuing IV zosyn -Cont Ventilator and adjusting Vent settings -Ref to RT -Pending blood cultures #?UTI -Patient's UA showed WBC 30+ bacteria with turbidity. Plan: -Continuing IV zosyn -F/U Urine cx #Lactic acidosis Type A -related to hypotension vs blood loss Plan: -Started IV fluids -Treating underlying infection and transfusing blood -Trend lactic acid #Leukocytosis: -wbc up trended Plan: -Continue IV antibiotics and awaiting blood cultures -Monitor for fever spikes -Transfusing Blood #Hx of seizures #Hx Atrial Fib #Hx of GERD and constipation #S/P Peg tube placement -EKG showed sinus tacy -Chadsvasc score 1 Plan: -Resume home meds including keppra,clonazepam and amiodarone -Seizure precautions -Stopped aspirin due to GI bleed Health Maintanance: Diet: PEG tube,Go lYtely prep GI prophylaxis:Protonix q12h DVT prophylaxis: SCDs Code status: DNR/DNI Disposition: Patient is admitted for acute blood loss anemia likely GI bleed. Dr. Del Cid has been consulted for further evaluation. Colonoscopy pending. -- Patient was seen and discussed with attending Dr. Alisa Mann MD, PGY-1 Attending Provider Attestation/Addendum I have examined the patient, reviewed labs and imaging findings, discussed the case with the resident(s), and reviewed entered orders. I agree with the plan of care as outlined in this note, with these additional summaries/recommendations: Patient seen at bedside. Patient is trached and pegged and no history can be obtained. She presented from subacute facility with abnormal hematology panel. Hemoglobin was found to be 3.6. FOBT positive in the ED. 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 Given the life-threatening nature of patient's GI bleed consent is implied and patient was transfused blood products. Hemoglobin improved to 9.3 although has now down-trended to 8.0 Gastroenterology consulted, recommendations appreciated. Patient is planned for colonoscopy. Start GoLytely. Patient is not conserved and no medical decision maker has been designated. We will have 2 physicians sign off on consent. Continue IV fluids. Avoid chemical anticoagulation. Continue IV Zosyn for likely urinary tract infection. Follow-up culture results when available. Continue Keppra for history of seizure disorder. Continue amiodarone for likely history of A-fib. Continue to trend H&H. Repeat renal panel in AM. Dr. Cuelalr
[2024-04-29] MEDS: NA SU/NAHCO3/KC/PEG (Golytely) 4,000 ML BTL 4000 ML GT (13:35)
[2024-04-29 14:15] LABS: Hematocrit 24.6 % (36.0-46.0)
--- NOTE | 2024-04-29 16:02 | PC.SS ---
SS contacted [facility], Sher Elenita [phone], He informed SS that the law changed and they are not able to make decisions anymore for patient. Marycarmen Informed SS that Sher had been making decision and no longer wants to make them any anymore.
--- NOTE | 2024-04-29 20:10 | PD.IMPROG ---
Documentation for date of: 04/29/24 Subjective Subjective Interval history: Patient status post blood transfusion GoLytely prep in progress Exam Vital Signs Temp Pulse Resp BP Pulse Ox O2 Del Method O2 Flow Rate 96.9 F 87 24 H 109/67 100 Mechanical Ventilation 40 04/29/24 20:00 04/29/24 20:00 04/29/24 20:00 04/29/24 20:00 04/29/24 20:00 04/29/24 16:00 04/29/24 16:00 FiO2 75 04/29/24 19:32 Routine Respiratory Exam Comments: Mechanically ventilated through tracheostomy Routine Abdominal Exam Comments: Positive bowel sounds PEG tube in place Objective Labs 04/29/24 13:45 04/29/24 03:23 Labs: Laboratory Results - last 24 hr 04/28/24 04/29/24 04/29/24 10:51 03:23 07:45 Hgb 9.3 L 8.6 L Hct 28.3 L 26.2 L PT 10.7 INR 1.0 APTT 22.9 Sodium 142 Potassium 3.9 Chloride 102 Carbon Dioxide 30.6 Anion Gap 9 BUN 41 H Creatinine 0.9 Estim Creat Clear Calc Not Performed. eGFR > 60 BUN/Creatinine Ratio 46 H Glucose 154 H Calculated Osmolality 296 H Lactic Acid 2.4 H 2.9 H Calcium 8.7 Corrected Calcium 9.1 Phosphorus 3.4 3.1 Magnesium 2.1 Total Bilirubin 0.8 D AST 79 H ALT 50 H Alkaline Phosphatase 110 Total Protein 6.6 Albumin 3.5 Globulin 3.1 Albumin/Globulin Ratio 1.1 L TSH 13.28 H Free T4 0.68 L Blood Type A Positive Antibody Screen NEGATIVE Crossmatch See Detail Blood Bank Wristband ID Yes 04/29/24 13:45 Hgb 8.0 L Hct 24.6 L PT INR APTT Sodium Potassium Chloride Carbon Dioxide Anion Gap BUN Creatinine Estim Creat Clear Calc eGFR BUN/Creatinine Ratio Glucose Calculated Osmolality Lactic Acid Calcium Corrected Calcium Phosphorus Magnesium Total Bilirubin AST ALT Alkaline Phosphatase Total Protein Albumin Globulin Albumin/Globulin Ratio TSH Free T4 Blood Type Antibody Screen Crossmatch Blood Bank Wristband ID Impressions Impression: # Anemia blood loss GoLytely prep in progress Consent will be signed by 2 physicians ABG Interpretation ABG results: 04/28/24 10:51 VBG pH 7.61 VBG pCO2 30 L VBG pO2 80 H VBG Base Excess 7 H Assessment & Plan A&P Narrative # Anemia blood loss requiring blood transfusion # Hemoccult positive stool # Anoxic brain injury requiring tracheostomy and mechanical ventilation and gastrostomy tube placement Plan GoLytely prep via the G-tube Once cleared we will schedule the colonoscopy with possible therapeutic intervention under intravenous moderate sedation Agree with the blood transfusion Thank you very much for the opportunity to participate in the care of this patient Time Spent With Patient Time: Total time spent is greater than 50% in coordination of care (as documented) at patient's floor/unit and/or counseling patient:
[2024-04-29] MEDS: CARBAMIDE PEROXIDE OTIC SOL 15 ML BTL 5 DROP BOTH EARS (21:35)
[2024-04-30] VITALS (15 sets, daily range): BP systolic 101–131; BP diastolic 59–96; PULSE 61–100; RESP 20–28; TEMP 36.1–36.6; O2SAT 92–100; BMI 38.0
[2024-04-30 00:37] LABS: Hematocrit 21.8 % (36.0-46.0)
[2024-04-30 00:39] LABS: Hemoglobin 7.1 g/dL (12.0-16.0)
[2024-04-30] MEDS: PIPER/TAZO 3.375 GM 3.375 GM/50 ML BAG IV (05:02)
[2024-04-30 05:53] LABS: Basophils % (Auto) 0 % (0-2.5); Eosinophils % (Auto) 0 % (0-10); Hematocrit 21.6 % (36.0-46.0); Immature Granulocytes % (Auto) 0 % (0-0); Immature Granulocytes Auto 0.05 Thou/mm3 (0.00-0.00); Lymphocytes # (Auto) 1.1 Thou/mm3 (1.0-4.8); Lymphocytes % (Auto) 8 % (10-50); Mean Corpuscular HGB Conc 32.4 g/dl (31.0-37.0); Mean Corpuscular Hemoglobin 28.8 pg (25.0-35.0); Mean Corpuscular Volume 89 fL (80-100); Monocytes # (Auto) 0.8 Thou/mm3 (0.0-0.8); Monocytes % (Auto) 6 % (0-12); Neutrophils % (Auto) 86 % (37-80); Nucleated Red Blood Cell # 0.04 Thou/mm3 (0.00-0.00); Nucleated Red Blood Cell % 0 /100 WBC (0); Platelet Count 120 Thou/mm3 (140-440); RDW Standard Deviation 56.6 fL (36.4-46.3); Red Blood Count 2.43 Miln/mm3 (4.00-5.20)
[2024-04-30 06:46] LABS: Alanine Aminotransferase 38 U/L (10-49); Albumin/Globulin Ratio 1.2 (1.2-2.2); Alkaline Phosphatase 84 U/L (46-116); Anion Gap 8 (7-16); Aspartate Amino Transferase 47 U/L (0-34); BUN/Creatinine Ratio 38 Ratio (12-20); Bilirubin,Total 0.6 mg/dL (0.3-1.2); Blood Urea Nitrogen 23 mg/dL (9-23); Calcium 7.9 mg/dL (8.3-10.6); Calcium (Corrected) 8.7 mg/dL (8.5-10.1); Carbon Dioxide 33.3 mMol/L (20.0-31.0); Chloride 104 mMol/L (98-107); Creatinine (Component) 0.6 mg/dL (0.6-1.3); Globulin 2.6 gm/dL (2.3-3.5); Glucose 96 mg/dL (74-106); Magnesium 1.9 mg/dL (1.6-2.6); Osmolality,Calculated 292 (275-295); Phosphorous 2.5 mg/dL (2.4-5.1); Sodium 145 mMol/L (136-145); Total Protein 5.6 gm/dL (5.7-8.2); eGFR > 60 See Note
[2024-04-30 07:22] LABS: Potassium 2.4 mMol/L (3.4-5.1)
[2024-04-30] MEDS: POTASSIUM CHL 10 mEq IVPB 10 MEQ/100 ML BAG 100 MEQ IV ×6 (07:53→18:39)
[2024-04-30] MEDS: Magnesium Sulfate 1 gm Ivpb 1 GM/100 ML BAG IV (07:54)
[2024-04-30 08:26] LABS: Lactate (Lactic Acid) 0.8 mMol/L (0.4-2.0)
[2024-04-30] MEDS: GLYCOPYRROLATE 1 MG TABLET GT (08:45)
[2024-04-30] MEDS: AMIODARONE HCL 200 MG TABLET 100 MG GT (08:45)
[2024-04-30] MEDS: levETIRAcetam LIQD 500 MG/5 ML UDC 750 MG GT ×2 (08:45→20:01)
[2024-04-30] MEDS: clonazePAM 0.5 MG TABLET GT ×2 (08:45→20:01)
[2024-04-30] MEDS: PANTOPRAZOLE INJ 40 MG VIAL IVP ×2 (08:45→20:00)
[2024-04-30 08:46] LABS: Potassium 2.8 mMol/L (3.4-5.1)
[2024-04-30] MEDS: CARBAMIDE PEROXIDE OTIC SOL 15 ML BTL 5 DROP BOTH EARS ×2 (08:46→21:48)
[2024-04-30] MEDS: POTASSIUM CHL 10 mEq IVPB 10 MEQ/100 ML BAG 75 MEQ IV ×2 (09:03→10:11)
--- NOTE | 2024-04-30 09:35 | PC.SS ---
Addendum entered by Tiffany Bro 04/30/24 11:12: SS made contact with [facility], Anahy Blackwood to file a Report, SS faxed [facility] report. Original Note: SS contacted Zarina from [facility], she reported her communication with patient rights and [employer] as well as Jacqueline, she was advices to adhere to hospital policy or seek guidance from the [employer]. SS will stand by for further needs.
--- NOTE | 2024-04-30 09:35 | PC.SS ---
SS contacted Zarina from [facility], she reported her communication with patient rights and [employer] as well as Jacqueline, she was advices to adhere to hospital policy or seek guidance from the [employer] comity. SS will stand by for further needs.
--- NOTE | 2024-04-30 10:10 | PC.SS ---
SS follow up note; SS was informed by DR. Mann if SS could have DR. Marinelli contact Team A. TERESA contacted Zarina and she will contact Dr. Marinelli and provide Dr. Munguia Contact number. SS will stand by for further needs.
--- NOTE | 2024-04-30 10:11 | ESPR_ITS ---
Documentation for date of: 04/30/24 Subjective Subjective Interval history: Patient was seen and examined at the bedside this morning. Patient had mild flushing of the neck however she is seen on mechanical ventilator. Overnight, patient had drop in hemoglobin therefore 1 unit PRBC was transfused and post H&H hemoglobin improved to 9.3. Urine culture grew Klebsiella resistant to Zosyn therefore was switched to cefepime however we de-escalated the antibiotic this morning to ceftriaxone. Vitals were stable this morning. Patient was found to have improvement in white count. CHEM panel showed hypokalemia 2.4--> 2.8 therefore 40 mEq IV KCl was given and labs were repeated at 2 PM. Kidney functions remained stable. Will give additional KCl as needed. Patient was also found to have downtrended platelets 120. We worked with social workers and RN and got consent from Dr Leal for colonoscopy. As Dr Leal gave verbal consent papers will be submitted on the behalf by Dr. Marinelli. Patient is awaiting for her colonoscopy possible tomorrow as patient is not clear yet. [employer] on the case. We are currently holding water flushes for GoLytely prep. Lactic acidosis resolved. All labs and orders were reviewed. Exam Vital Signs Temp Pulse Resp BP Pulse Ox O2 Del Method O2 Flow Rate 97.4 F 98 23 H 114/62 100 Mechanical Ventilation 40 04/30/24 09:09 04/30/24 09:09 04/30/24 09:09 04/30/24 09:09 04/30/24 09:09 04/30/24 08:00 04/30/24 04:00 FiO2 45 04/30/24 08:00 Narrative Exam GENERAL APPEARANCE: Patient is nonverbal, tracheostomy with mechanically ventilated. HEENT: NC, AT. MMM. EOMI, clear conjunctiva, oropharynx clear. Flushing around neck. NECK: Supple without lymphadenopathy. Tracheostomy tube seen. HEART: Regular rate and regular rhythm, normal S1/S2, no m/r/g LUNGS: Bilateral rhonchi heard on auscultation with coarse breath sounds ABDOMEN: Soft, nontender, nondistended with good bowel sounds heard. PEG tube in place. BACK: No CVAT, no obvious deformity. EXTREMITIES: Upper extremities in flexed posture. NEUROLOGICAL: Grossly nonfocal. Patient is nonverbal with tracheostomy and PEG tube. Skin: Warm and dry without any rash. Objective Labs 05/01/24 05:50 05/01/24 05:50 Labs: Laboratory Results - last 24 hr 04/28/24 04/29/24 04/30/24 10:51 13:45 00:19 WBC RBC Hgb 8.0 L 7.1 L Hct 24.6 L 21.8 L* MCV MCH MCHC RDW Std Deviation Plt Count Neut % (Auto) Lymph % (Auto) [place] % (Auto) Eos % (Auto) Baso % (Auto) Neut # (Auto) Lymph # (Auto) [place] # (Auto) Eos # (Auto) Baso # (Auto) Immature Gran # (Auto) Absolute Nucleated RBC Immature Gran % Nucleated RBC % Sodium Potassium Chloride Carbon Dioxide Anion Gap BUN Creatinine Estim Creat Clear Calc eGFR BUN/Creatinine Ratio Glucose Calculated Osmolality Lactic Acid Calcium Corrected Calcium Phosphorus Magnesium Total Bilirubin AST ALT Alkaline Phosphatase Total Protein Albumin Globulin Albumin/Globulin Ratio Blood Type A Positive Antibody Screen NEGATIVE Crossmatch See Detail Blood Bank Wristband ID Yes 04/30/24 04/30/24 04:45 08:20 WBC 14.0 H D RBC 2.43 L Hgb 7.0 L Hct 21.6 L* MCV 89 MCH 28.8 MCHC 32.4 RDW Std Deviation 56.6 H Plt Count 120 L D Neut % (Auto) 86 H Lymph % (Auto) 8 L [place] % (Auto) 6 Eos % (Auto) 0 Baso % (Auto) 0 Neut # (Auto) 12.0 H Lymph # (Auto) 1.1 [place] # (Auto) 0.8 Eos # (Auto) 0.0 Baso # (Auto) 0.0 Immature Gran # (Auto) 0.05 H Absolute Nucleated RBC 0.04 H Immature Gran % 0 Nucleated RBC % 0 Sodium 145 Potassium 2.4 L* D 2.8 L Chloride 104 Carbon Dioxide 33.3 H Anion Gap 8 BUN 23 Creatinine 0.6 Estim Creat Clear Calc 84.0 eGFR > 60 BUN/Creatinine Ratio 38 H Glucose 96 D Calculated Osmolality 292 Lactic Acid 0.8 Calcium 7.9 L Corrected Calcium 8.7 Phosphorus 2.5 Magnesium 1.9 Total Bilirubin 0.6 AST 47 H ALT 38 Alkaline Phosphatase 84 D Total Protein 5.6 L Albumin 3.0 L D Globulin 2.6 Albumin/Globulin Ratio 1.2 Blood Type Antibody Screen Crossmatch Blood Bank Wristband ID ABG Interpretation ABG results: 04/28/24 10:51 VBG pH 7.61 VBG pCO2 30 L VBG pO2 80 H VBG Base Excess 7 H Quality Measures Quality Measures VTE prophylaxis (SCDs) Advance care planning discussed with:: other Assessment & Plan Assessment Current Active Medications: Generic Name Dose Route Start Last Admin Trade Name Asha PRN Reason Stop Dose Admin Acetaminophen 650 mg 04/28/24 11:24 Acetaminophen 325 Mg Tablet PO 05/28/24 11:23 Q6H PRN Fever >101.5 Acetaminophen 650 mg 04/28/24 11:24 Acetaminophen 325 Mg Tablet PO 05/28/24 11:23 Q6H PRN PAIN SCALE 1-3 (mild Albuterol/Ipratropium 3 ml 04/28/24 11:36 04/29/24 02:08 Albuterol/Ipratropium (Duoneb) Rt Aria 3 Ml Nebu INH 05/28/24 12:59 3 ml Q6HRRT PRN Administration wheezing Amiodarone HCl 100 mg 04/28/24 13:45 04/30/24 08:45 Amiodarone Hcl 200 Mg Tablet GT 05/28/24 13:44 100 mg QDAY MARTINEZ Administration Bisacodyl 10 mg 04/28/24 13:42 Bisacodyl 10 Mg Supp TX 05/28/24 13:41 QDAY PRN CONSTIPATION Protocol Carbamide Peroxide 5 drop 04/28/24 14:00 04/30/24 08:46 Carbamide Peroxide Otic Aria 15 Ml Btl BOTH EARS 05/28/24 13:59 5 drop BID MARTINEZ Administration Clonazepam 0.5 mg 04/28/24 14:00 04/30/24 08:45 Clonazepam 0.5 Mg Tablet GT 05/03/24 13:59 0.5 mg BID MARTINEZ Administration Dextrose 25 ml 04/28/24 11:39 Dextrose 50%-Water Inj 50 Ml Syringe IV 05/28/24 11:38 Q15MIN PRN BG 50-70 responsive npo pt Dextrose 50 ml 04/28/24 11:39 Dextrose 50%-Water Inj 50 Ml Syringe IV 05/28/24 11:38 Q15MIN PRN BG <50 OR BG <70 & pt unresponsive Glucagon 1 mg 04/28/24 11:39 Glucagon Inj 1 Mg Vial IM Q15MIN PRN BG <70, and no IV access Glycopyrrolate 1 mg 04/28/24 14:00 04/30/24 08:45 Glycopyrrolate 1 Mg Tablet GT 05/28/24 13:59 1 mg QDAY MARTINEZ Administration Guaifenesin 300 mg 04/28/24 13:42 Guaifenesin Syrup 200 Mg/10 Ml c 05/28/24 13:41 Q6H PRN COUGH Protocol Sodium Chloride 1,000 mls @ 75 mls/hr 04/29/24 09:56 04/30/24 00:00 Ns IV 05/29/24 09:55 75 mls/hr .[id number] MARTINEZ Administration Potassium Chloride 10 meq in 100 mls @ 100 mls/hr 04/30/24 07:41 04/30/24 09:03 Kcl Ivpb IV 04/30/24 11:40 75 mls/hr Q1H MARTINEZ Administration Potassium Chloride 10 meq in 100 mls @ 100 mls/hr 04/30/24 15:00 Kcl Ivpb IV 04/30/24 18:59 Q1H MARTINEZ Ceftriaxone Sodium/Dextrose 50 mls @ 100 mls/hr 04/30/24 10:00 Rocephin/D5w 1gm Iv Premix IV 05/07/24 09:59 QDAY MARTINEZ Levetiracetam 750 mg 04/28/24 14:00 04/30/24 08:45 Levetiracetam Liqd 500 Mg/5 Ml [facility] 05/28/24 13:59 750 mg BID MARTINEZ Administration Lorazepam 2 mg 04/28/24 13:47 Lorazepam 2 Mg/Ml Vial IVP 05/03/24 13:46 Q8HR PRN breakthrough seizures Magnesium Hydroxide 30 ml 04/28/24 13:47 Milk Of Magnesia Susp 30 Ml [facility] 05/28/24 13:46 Q6H PRN CONSTIPATION Protocol Ondansetron HCl 4 mg 04/28/24 11:24 Ondansetron Inj 2 Mg/Ml Inj 2 Ml IV 05/28/24 11:23 Q6H PRN NAUSEA OR VOMITING Protocol Pantoprazole Sodium 40 mg 04/28/24 21:00 04/30/24 08:45 Pantoprazole Inj 40 Mg Vial IVP 05/28/24 20:59 40 mg Q12HR MARTINEZ Administration Polyethylene Glycol 17 gm 04/28/24 13:42 Polyethylene Glycol 17 Gm Packet PO 05/28/24 13:41 QDAY PRN CONSTIPATION Protocol Plan Summary: This patient is a 69-year-old female with past medical history of seizures, anoxic brain injury with persistent vegetative state chronic respiratory failure status post tracheostomy with ventilator dependent and G- tube placement, history of hypertension, history of A-fib presented from subacute with low hemoglobin level. Per RN, staff at the subacute reported the patient's hemoglobin was significantly low at 3.6 and hematocrit 12.4. Patient was sent to ED for further evaluation. Patient is nonverbal at baseline therefore majority history was taken from patient's chart. In the ED, patient's vitals showed blood pressure 101/63, tachycardia, tachypnea and mild temp 99. Patient is ventilating 100% on mechanical ventilator. Patient did had EGD on April 08 which showed gastritis pattern.EGD showed esophagitis, gastritis with erythema. #Acute severe blood loss anemia due to GI bleed #Hypotension, improving #Esophagitis with gastritis pattern per EGD, 04/08/2024 -DDx GI bleed vs aspirin use -Patient presented from subacute with blood loss Patient is nonverbal at baseline. -hemoglobin 3.6 .Lactic acidosis 2.9. Urine was turbid with WBC 30+ bacteria 4+ on admission. -EGD showed esophagitis with gastritis present on April 08, 2024. -4 units PRBC transfused in total Plan: -post H&H improved to 9 -Pending colonoscopy possible tomorrow -Continue IV fluids -GI consulted, appreciate recommendations -GoLytely prep -Tube feeds on hold and blood sugar every 6 hourly -Refer to registered dietitian -Prbc if Hgb remains below 7 -F/u morning labs -Replete electrolytes as necessary # Klebsiella UTI -Patient's UA showed WBC 30+ bacteria with turbidity. Plan: -Zosyn was discontinued and started ceftriaxone -Urine culture grew Klebsiella sensitive to ceftriaxone resistant to Zosyn #Electrolyte disturbance #Hypokalemia -Potassium was 2.4 repeat was 2.8 Plan -Replete 80 mEq IV potassium x 1 #Acute on chronic hypoxic respiratory failure 2/2 Healthcare acquired pneumonia s/p trach tube #Persistent vegetative state post Anoxic brain injury #Metabolic alkalosis: Resolved #Leukocytosis -Imaging: Chest x-ray showed left base pneumonia. -Previous ET sec grew Klebsiella -Zosyn discontinued Plan: -Continuing IV ceftriaxone -Cont Ventilator and adjusting Vent settings -Ref to RT -Blood cultures negative x 24 hours #Lactic acidosis Type A, resolved -related to hypotension vs blood loss Plan: -IV fluids and blood transfusion given #Leukocytosis: -wbc downtrending Plan: -Continue IV ceftriaxone -Monitor for fever spikes # Thrombocytopenia -Likely related to blood loss Plan: -SCDs for DVT prophylaxis -Bleeding precautions #Hx of seizures #Hx Atrial Fib #Hx of GERD and constipation #S/P Peg tube placement -EKG showed sinus tacy -Chadsvasc score 1 Plan: -Resume home meds including keppra,clonazepam and amiodarone -Seizure precautions -Stopped aspirin due to GI bleed Health Maintanance: Diet: PEG tube,Go lYtely prep GI prophylaxis:Protonix q12h DVT prophylaxis: SCDs Code status: DNR/DNI Disposition: Patient is admitted for acute blood loss anemia likely GI bleed. Dr. Del Cid has been consulted for further evaluation. Colonoscopy pending. -- Patient was seen and discussed with attending Dr. Alisa Mann MD, PGY-1 Attending Provider Attestation/Addendum I have examined the patient, reviewed labs and imaging findings, discussed the case with the resident(s), and reviewed entered orders. I agree with the plan of care as outlined in this note, with these additional summaries/recommendations: Patient seen at bedside. No acute overnight events. Patient is trached and pegged and no history can be obtained at this time. Patient's hemoglobin is back down to 7.0 despite blood transfusion. Given the life-threatening nature of patient's GI bleed consent is indicated and we will discuss with gastroenterology. Case discussed with social work case manager and we will attempt to arrange conservatorship for patient with neurology who was consulted. We will give additional blood products today and follow-up repeat H&H. Gastroenterology following. Continue Rocephin for urinary tract infection. Urine culture grew Klebsiella pneumonia and blood culture showed no growth at 24 hours. Lactic acidosis resolved. Continue patient's home antiepileptics for seizure disorder. Continue amiodarone for history of atrial fibrillation. Repeat hematology and chemistry panel in AM. Dr. Cuellar
[2024-04-30] MEDS: cefTRIAXone/D5w 1gm IV premix 50 ML IV (10:22)
[2024-04-30] MEDS: NA SU/NAHCO3/KC/PEG (Golytely) 4,000 ML BTL 4000 ML GT (10:41)
[2024-04-30] MEDS: SODIUM CHLORIDE 0.9% 1000 ML 1,000 ML 75 ML IV ×2 (11:59)
[2024-04-30 12:48] LABS: Hematocrit 28.7 % (36.0-46.0); Hemoglobin 9.3 g/dL (12.0-16.0)
--- NOTE | 2024-04-30 14:38 | PC.SS ---
SS follow up note; SS contacted Zarina to check status on Dr. Marinelli's phone call and she informed SS that Dr. Marinelli was provided with Dr. Cuellar's contact number and will attempt to contact Dr. Marinelli.
[2024-04-30 14:50] LABS: Potassium 3.1 mMol/L (3.4-5.1)
--- NOTE | 2024-04-30 20:52 | PD.IMPROG ---
Documentation for date of: 04/30/24 Subjective Subjective Interval history: Patient evaluated she was scheduled for a colonoscopy but she is still not clear Additional GoLytely Exam Vital Signs Temp Pulse Resp BP Pulse Ox O2 Del Method O2 Flow Rate 96.9 F 80 20 117/84 99 Mechanical Ventilation 40 04/30/24 20:00 04/30/24 20:00 04/30/24 20:00 04/30/24 20:00 04/30/24 20:00 04/30/24 20:00 04/30/24 04:00 FiO2 40 04/30/24 20:00 Objective Labs 04/30/24 12:30 04/30/24 14:00 Labs: Laboratory Results - last 24 hr 04/28/24 04/30/24 04/30/24 10:51 00:19 04:45 WBC 14.0 H D RBC 2.43 L Hgb 7.1 L 7.0 L Hct 21.8 L* 21.6 L* MCV 89 MCH 28.8 MCHC 32.4 RDW Std Deviation 56.6 H Plt Count 120 L D Neut % (Auto) 86 H Lymph % (Auto) 8 L [place] % (Auto) 6 Eos % (Auto) 0 Baso % (Auto) 0 Neut # (Auto) 12.0 H Lymph # (Auto) 1.1 [place] # (Auto) 0.8 Eos # (Auto) 0.0 Baso # (Auto) 0.0 Immature Gran # (Auto) 0.05 H Absolute Nucleated RBC 0.04 H Immature Gran % 0 Nucleated RBC % 0 Sodium 145 Potassium 2.4 L* D Chloride 104 Carbon Dioxide 33.3 H Anion Gap 8 BUN 23 Creatinine 0.6 Estim Creat Clear Calc 84.0 eGFR > 60 BUN/Creatinine Ratio 38 H Glucose 96 D Calculated Osmolality 292 Lactic Acid Calcium 7.9 L Corrected Calcium 8.7 Phosphorus 2.5 Magnesium 1.9 Total Bilirubin 0.6 AST 47 H ALT 38 Alkaline Phosphatase 84 D Total Protein 5.6 L Albumin 3.0 L D Globulin 2.6 Albumin/Globulin Ratio 1.2 Blood Type A Positive Antibody Screen NEGATIVE Crossmatch See Detail Blood Bank Wristband ID Yes 04/30/24 04/30/24 04/30/24 08:20 12:30 14:00 WBC RBC Hgb 9.3 L D Hct 28.7 L MCV MCH MCHC RDW Std Deviation Plt Count Neut % (Auto) Lymph % (Auto) [place] % (Auto) Eos % (Auto) Baso % (Auto) Neut # (Auto) Lymph # (Auto) [place] # (Auto) Eos # (Auto) Baso # (Auto) Immature Gran # (Auto) Absolute Nucleated RBC Immature Gran % Nucleated RBC % Sodium Potassium 2.8 L 3.1 L Chloride Carbon Dioxide Anion Gap BUN Creatinine Estim Creat Clear Calc eGFR BUN/Creatinine Ratio Glucose Calculated Osmolality Lactic Acid 0.8 Calcium Corrected Calcium Phosphorus Magnesium Total Bilirubin AST ALT Alkaline Phosphatase Total Protein Albumin Globulin Albumin/Globulin Ratio Blood Type Antibody Screen Crossmatch Blood Bank Wristband ID Impressions Impression: # Anemia blood loss Additional GoLytely Reschedule colonoscopy ABG Interpretation ABG results: 04/28/24 10:51 VBG pH 7.61 VBG pCO2 30 L VBG pO2 80 H VBG Base Excess 7 H Assessment & Plan A&P Narrative # Anemia blood loss requiring blood transfusion # Hemoccult positive stool # Anoxic brain injury requiring tracheostomy and mechanical ventilation and gastrostomy tube placement Plan GoLytely prep via the G-tube Once cleared we will schedule the colonoscopy with possible therapeutic intervention under intravenous moderate sedation Agree with the blood transfusion Thank you very much for the opportunity to participate in the care of this patient Time Spent With Patient Time: Total time spent is greater than 50% in coordination of care (as documented) at patient's floor/unit and/or counseling patient:
--- NOTE | 2024-04-30 23:18 | PD.VPROG1 ---
Telemedicine visit statement This visit was conducted with the use of interactive audio and video telecommunications system that permits real time communication between the patient and the provider. Patient's verbal consent for virtual visit was obtained on 04/30/24 Documentation for date of: 04/30/24 Subjective Subjective Interval history: Patient is in telemetry, and got transferred from [facility] for GI bleeding with a drop in hematocrit. Patient received several units of blood transfusion. Patient is scheduled for colonoscopy and is waiting for consent. Virtual exam Vital Signs Temp Pulse Resp BP Pulse Ox O2 Del Method O2 Flow Rate 96.9 F 80 20 117/84 99 Mechanical Ventilation 40 04/30/24 20:00 04/30/24 20:00 04/30/24 20:00 04/30/24 20:00 04/30/24 20:00 04/30/24 20:00 04/30/24 04:00 FiO2 40 04/30/24 20:00 Objective Labs 04/30/24 12:30 04/30/24 14:00 Labs: Laboratory Results - last 24 hr 04/28/24 04/30/24 04/30/24 10:51 00:19 04:45 WBC 14.0 H D RBC 2.43 L Hgb 7.1 L 7.0 L Hct 21.8 L* 21.6 L* MCV 89 MCH 28.8 MCHC 32.4 RDW Std Deviation 56.6 H Plt Count 120 L D Neut % (Auto) 86 H Lymph % (Auto) 8 L [place] % (Auto) 6 Eos % (Auto) 0 Baso % (Auto) 0 Neut # (Auto) 12.0 H Lymph # (Auto) 1.1 [place] # (Auto) 0.8 Eos # (Auto) 0.0 Baso # (Auto) 0.0 Immature Gran # (Auto) 0.05 H Absolute Nucleated RBC 0.04 H Immature Gran % 0 Nucleated RBC % 0 Sodium 145 Potassium 2.4 L* D Chloride 104 Carbon Dioxide 33.3 H Anion Gap 8 BUN 23 Creatinine 0.6 Estim Creat Clear Calc 84.0 eGFR > 60 BUN/Creatinine Ratio 38 H Glucose 96 D Calculated Osmolality 292 Lactic Acid Calcium 7.9 L Corrected Calcium 8.7 Phosphorus 2.5 Magnesium 1.9 Total Bilirubin 0.6 AST 47 H ALT 38 Alkaline Phosphatase 84 D Total Protein 5.6 L Albumin 3.0 L D Globulin 2.6 Albumin/Globulin Ratio 1.2 Blood Type A Positive Antibody Screen NEGATIVE Crossmatch See Detail Blood Bank Wristband ID Yes 04/30/24 04/30/24 04/30/24 08:20 12:30 14:00 WBC RBC Hgb 9.3 L D Hct 28.7 L MCV MCH MCHC RDW Std Deviation Plt Count Neut % (Auto) Lymph % (Auto) [place] % (Auto) Eos % (Auto) Baso % (Auto) Neut # (Auto) Lymph # (Auto) [place] # (Auto) Eos # (Auto) Baso # (Auto) Immature Gran # (Auto) Absolute Nucleated RBC Immature Gran % Nucleated RBC % Sodium Potassium 2.8 L 3.1 L Chloride Carbon Dioxide Anion Gap BUN Creatinine Estim Creat Clear Calc eGFR BUN/Creatinine Ratio Glucose Calculated Osmolality Lactic Acid 0.8 Calcium Corrected Calcium Phosphorus Magnesium Total Bilirubin AST ALT Alkaline Phosphatase Total Protein Albumin Globulin Albumin/Globulin Ratio Blood Type Antibody Screen Crossmatch Blood Bank Wristband ID ABG Interpretation ABG results: 04/28/24 10:51 VBG pH 7.61 VBG pCO2 30 L VBG pO2 80 H VBG Base Excess 7 H Assessment & Plan Problem List (1) Anoxic brain damage, not elsewhere classified: Status: Chronic Assessment and plan: She is in persistent vegetative status with spasticity and quadriplegia I am not in town to provide consent for colonoscopy in case preparation is complete, suggested that the hospitalist team look into other options. (2) Severe anemia: Status: Acute Assessment and plan: Hemoglobin: 3, received several units of blood transfusion. (3) Tracheostomy dependent: Status: Chronic Assessment and plan: Stable (4) Heart disease, hypertensive: Status: Chronic Assessment and plan: Continue with Lasix and amiodarone (5) Tracheostomy status: Status: Chronic Assessment and plan: Stable and is getting frequent and periodic suctioning
[2024-05-01] VITALS (15 sets, daily range): BP systolic 104–141; BP diastolic 63–98; PULSE 51–106; RESP 20–23; TEMP 36–36.6; O2SAT 95–100; BMI 41.2
[2024-05-01] MEDS: NA SU/NAHCO3/KC/PEG (Golytely) 4,000 ML BTL 4000 ML PO (00:15)
[2024-05-01 00:44] LABS: Potassium 2.9 mMol/L (3.4-5.1)
[2024-05-01] MEDS: POTASSIUM CHL 10 mEq IVPB 10 MEQ/100 ML BAG 100 MEQ IV ×4 (01:26→05:47)
[2024-05-01] MEDS: SODIUM CHLORIDE 0.9% 1000 ML 1,000 ML 75 ML IV ×2 (03:12→16:29)
[2024-05-01 06:10] LABS: Basophils % (Auto) 0 % (0-2.5); Eosinophils % (Auto) 0 % (0-10); Hematocrit 29.2 % (36.0-46.0); Hemoglobin 9.2 g/dL (12.0-16.0); Immature Granulocytes % (Auto) 0 % (0-0); Immature Granulocytes Auto 0.03 Thou/mm3 (0.00-0.00); Lymphocytes # (Auto) 0.7 Thou/mm3 (1.0-4.8); Lymphocytes % (Auto) 9 % (10-50); Mean Corpuscular HGB Conc 31.5 g/dl (31.0-37.0); Mean Corpuscular Volume 89 fL (80-100); Monocytes # (Auto) 0.4 Thou/mm3 (0.0-0.8); Monocytes % (Auto) 5 % (0-12); Neutrophils # (Auto) 7.1 Thou/mm3 (1.8-7.7); Neutrophils % (Auto) 85 % (37-80); Nucleated Red Blood Cell # 0.04 Thou/mm3 (0.00-0.00); Nucleated Red Blood Cell % 1 /100 WBC (0); Platelet Count 112 Thou/mm3 (140-440); Red Blood Count 3.28 Miln/mm3 (4.00-5.20); White Blood Count 8.3 Thou/mm3 (3.6-11.0)
[2024-05-01 06:47] LABS: Alanine Aminotransferase 31 U/L (10-49); Albumin, Serum 3.3 gm/dL (3.4-4.8); Albumin/Globulin Ratio 1.2 (1.2-2.2); Alkaline Phosphatase 86 U/L (46-116); Anion Gap 10 (7-16); Aspartate Amino Transferase 31 U/L (0-34); BUN/Creatinine Ratio 24 Ratio (12-20); Bilirubin,Total 0.5 mg/dL (0.3-1.2); Blood Urea Nitrogen 12 mg/dL (9-23); Calcium 8.1 mg/dL (8.3-10.6); Calcium (Corrected) 8.7 mg/dL (8.5-10.1); Carbon Dioxide 30.8 mMol/L (20.0-31.0); Chloride 104 mMol/L (98-107); Creatinine (Component) 0.5 mg/dL (0.6-1.3); Estimated Creatinine Clearance 105.6 mL/min (>60); Globulin 2.7 gm/dL (2.3-3.5); Glucose 79 mg/dL (74-106); Magnesium 1.9 mg/dL (1.6-2.6); Osmolality,Calculated 287 (275-295); Phosphorous 1.8 mg/dL (2.4-5.1); Potassium 2.9 mMol/L (3.4-5.1); Sodium 145 mMol/L (136-145); eGFR > 60 See Note
[2024-05-01] MEDS: levETIRAcetam LIQD 500 MG/5 ML UDC 750 MG GT ×2 (08:05→20:25)
[2024-05-01] MEDS: clonazePAM 0.5 MG TABLET GT ×2 (08:05→20:25)
[2024-05-01] MEDS: GLYCOPYRROLATE 1 MG TABLET GT (08:05)
[2024-05-01] MEDS: AMIODARONE HCL 200 MG TABLET 100 MG GT (08:05)
[2024-05-01] MEDS: PANTOPRAZOLE INJ 40 MG VIAL IVP ×2 (08:07→20:24)
[2024-05-01] MEDS: cefTRIAXone/D5w 1gm IV premix 50 ML IV (08:07)
[2024-05-01] MEDS: Magnesium Sulfate 4 GM Ivpb 4 GM/50 ML BAG IV (08:08)
[2024-05-01] MEDS: CARBAMIDE PEROXIDE OTIC SOL 15 ML BTL 5 DROP BOTH EARS ×2 (08:32→20:24)
--- NOTE | 2024-05-01 10:51 | PD.RESPRO ---
Documentation for date of: 05/01/24 Subjective Subjective Interval history: Patient seen examined at bedside. No acute overnight events. Plan for colonoscopy today. Rounded with RN. Labs and vitals were reviewed. Exam Vital Signs Temp Pulse Resp BP Pulse Ox O2 Del Method O2 Flow Rate 97.8 F 94 20 104/78 99 Mechanical Ventilation 40 05/01/24 08:00 05/01/24 08:05 05/01/24 08:00 05/01/24 08:05 05/01/24 08:00 05/01/24 08:00 04/30/24 04:00 FiO2 40 05/01/24 08:00 Narrative Exam GENERAL APPEARANCE: Patient is nonverbal, tracheostomy with mechanically ventilated. HEENT: NC, AT. MMM. EOMI, clear conjunctiva, oropharynx clear. Flushing around neck. NECK: Supple without lymphadenopathy. Tracheostomy tube seen. HEART: Regular rate and regular rhythm, normal S1/S2, no m/r/g LUNGS: Bilateral rhonchi heard on auscultation with coarse breath sounds ABDOMEN: Soft, nontender, nondistended with good bowel sounds heard. PEG tube in place. BACK: No CVAT, no obvious deformity. EXTREMITIES: Upper extremities in flexed posture. NEUROLOGICAL: Grossly nonfocal. Patient is nonverbal with tracheostomy and PEG tube. Skin: Warm and dry without any rash. Objective Labs 05/01/24 05:50 05/01/24 12:28 Labs: Laboratory Results - last 24 hr 04/28/24 04/30/24 04/30/24 10:51 12:30 14:00 WBC RBC Hgb 9.3 L D Hct 28.7 L MCV MCH MCHC RDW Std Deviation Plt Count Neut % (Auto) Lymph % (Auto) [place] % (Auto) Eos % (Auto) Baso % (Auto) Neut # (Auto) Lymph # (Auto) [place] # (Auto) Eos # (Auto) Baso # (Auto) Immature Gran # (Auto) Absolute Nucleated RBC Immature Gran % Nucleated RBC % Sodium Potassium 3.1 L Chloride Carbon Dioxide Anion Gap BUN Creatinine Estim Creat Clear Calc eGFR BUN/Creatinine Ratio Glucose Calculated Osmolality Calcium Corrected Calcium Phosphorus Magnesium Total Bilirubin AST ALT Alkaline Phosphatase Total Protein Albumin Globulin Albumin/Globulin Ratio Crossmatch See Detail 05/01/24 05/01/24 00:20 05:50 WBC 8.3 D RBC 3.28 L Hgb 9.2 L Hct 29.2 L MCV 89 MCH 28.0 MCHC 31.5 RDW Std Deviation 57.0 H Plt Count 112 L Neut % (Auto) 85 H Lymph % (Auto) 9 L [place] % (Auto) 5 Eos % (Auto) 0 Baso % (Auto) 0 Neut # (Auto) 7.1 Lymph # (Auto) 0.7 L [place] # (Auto) 0.4 Eos # (Auto) 0.0 Baso # (Auto) 0.0 Immature Gran # (Auto) 0.03 H Absolute Nucleated RBC 0.04 H Immature Gran % 0 Nucleated RBC % 1 H Sodium 145 Potassium 2.9 L 2.9 L Chloride 104 Carbon Dioxide 30.8 Anion Gap 10 BUN 12 Creatinine 0.5 L Estim Creat Clear Calc 105.6 eGFR > 60 BUN/Creatinine Ratio 24 H Glucose 79 Calculated Osmolality 287 Calcium 8.1 L Corrected Calcium 8.7 Phosphorus 1.8 L Magnesium 1.9 Total Bilirubin 0.5 AST 31 ALT 31 Alkaline Phosphatase 86 Total Protein 6.0 Albumin 3.3 L Globulin 2.7 Albumin/Globulin Ratio 1.2 Crossmatch ABG Interpretation ABG results: 04/28/24 10:51 VBG pH 7.61 VBG pCO2 30 L VBG pO2 80 H VBG Base Excess 7 H Quality Measures Quality Measures VTE prophylaxis (SCDs) Advance care planning discussed with:: other Assessment & Plan Assessment Current Active Medications: Generic Name Dose Route Start Last Admin Trade Name Freq PRN Reason Stop Dose Admin Acetaminophen 650 mg 04/28/24 11:24 Acetaminophen 325 Mg Tablet PO 05/28/24 11:23 Q6H PRN Fever >101.5 Acetaminophen 650 mg 04/28/24 11:24 Acetaminophen 325 Mg Tablet PO 05/28/24 11:23 Q6H PRN PAIN SCALE 1-3 (mild Albuterol/Ipratropium 3 ml 04/28/24 11:36 04/29/24 02:08 Albuterol/Ipratropium (Duoneb) Rt Aria 3 Ml Nebu INH 05/28/24 12:59 3 ml Q6HRRT PRN Administration wheezing Amiodarone HCl 100 mg 04/28/24 13:45 05/01/24 08:05 Amiodarone Hcl 200 Mg Tablet GT 05/28/24 13:44 100 mg QDAY MARTINEZ Administration Bisacodyl 10 mg 04/28/24 13:42 Bisacodyl 10 Mg Supp MS 05/28/24 13:41 QDAY PRN CONSTIPATION Protocol Carbamide Peroxide 5 drop 04/28/24 14:00 05/01/24 08:32 Carbamide Peroxide Otic Aria 15 Ml Btl BOTH EARS 05/28/24 13:59 5 drop BID MARTINEZ Administration Clonazepam 0.5 mg 04/28/24 14:00 05/01/24 08:05 Clonazepam 0.5 Mg Tablet GT 05/03/24 13:59 0.5 mg BID MARTINEZ Administration Dextrose 25 ml 04/30/24 14:46 Dextrose 50%-Water Inj 50 Ml Syringe IV 05/30/24 14:45 Q15MIN PRN BG 50-70 responsive npo pt Dextrose 50 ml 04/30/24 14:46 Dextrose 50%-Water Inj 50 Ml Syringe IV 05/30/24 14:45 Q15MIN PRN BG <50 OR BG <70 & pt unresponsive Glucagon 1 mg 04/30/24 14:46 Glucagon Inj 1 Mg Vial IM Q15MIN PRN BG <70, and no IV access Glycopyrrolate 1 mg 04/28/24 14:00 05/01/24 08:05 Glycopyrrolate 1 Mg Tablet GT 05/28/24 13:59 1 mg QDAY MARTINEZ Administration Guaifenesin 300 mg 04/28/24 13:42 Guaifenesin Syrup 200 Mg/10 Ml Udc GT 05/28/24 13:41 Q6H PRN COUGH Protocol Sodium Chloride 1,000 mls @ 75 mls/hr 04/29/24 09:56 05/01/24 03:12 Ns IV 05/29/24 09:55 75 mls/hr .[id number] MARTINEZ Administration Ceftriaxone Sodium/Dextrose 50 mls @ 100 mls/hr 04/30/24 10:00 05/01/24 08:07 Rocephin/D5w 1gm Iv Premix IV 05/07/24 09:59 100 mls/hr QDAY MARTINEZ Administration Magnesium Sulfate 4 gm in 50 mls @ 12.5 mls/hr 05/01/24 07:30 05/01/24 08:08 Magnesium Sulfate Ivpb IV 05/01/24 11:29 12.5 mls/hr X1 ONE Administration Levetiracetam 750 mg 04/28/24 14:00 05/01/24 08:05 Levetiracetam Liqd 500 Mg/5 Ml Udc GT 05/28/24 13:59 750 mg BID MARTINEZ Administration Lorazepam 2 mg 04/28/24 13:47 Lorazepam 2 Mg/Ml Vial IVP 05/03/24 13:46 Q8HR PRN breakthrough seizures Magnesium Hydroxide 30 ml 04/28/24 13:47 Milk Of Magnesia Susp 30 Ml Udc GT 05/28/24 13:46 Q6H PRN CONSTIPATION Protocol Ondansetron HCl 4 mg 04/28/24 11:24 Ondansetron Inj 2 Mg/Ml Inj 2 Ml IV 05/28/24 11:23 Q6H PRN NAUSEA OR VOMITING Protocol Pantoprazole Sodium 40 mg 04/28/24 21:00 05/01/24 08:07 Pantoprazole Inj 40 Mg Vial IVP 05/28/24 20:59 40 mg Q12HR MARTINEZ Administration Polyethylene Glycol 17 gm 04/28/24 13:42 Polyethylene Glycol 17 Gm Packet PO 05/28/24 13:41 QDAY PRN CONSTIPATION Protocol Plan Summary: This patient is a 69-year-old female with past medical history of seizures, anoxic brain injury with persistent vegetative state chronic respiratory failure status post tracheostomy with ventilator dependent and G-tube placement, history of hypertension, history of A-fib presented from subacute with low hemoglobin level. Per RN, staff at the subacute reported the patient's hemoglobin was significantly low at 3.6 and hematocrit 12.4. Patient was sent to ED for further evaluation. Patient is nonverbal at baseline therefore majority history was taken from patient's chart. In the ED, patient's vitals showed blood pressure 101/63, tachycardia, tachypnea and mild temp 99. Patient is ventilating 100% on mechanical ventilator. Patient did had EGD on April 08 which showed gastritis pattern.EGD showed esophagitis, gastritis with erythema. #Acute severe blood loss anemia due to GI bleed #Hypotension, improving #Esophagitis with gastritis pattern per EGD, 04/08/2024 -DDx GI bleed vs aspirin use -Patient presented from subacute with blood loss Patient is nonverbal at baseline. -hemoglobin 3.6 .Lactic acidosis 2.9. Urine was turbid with WBC 30+ bacteria 4+ on admission. -EGD showed esophagitis with gastritis present on April 08, 2024. -4 units PRBC transfused in total Plan: -Pending colonoscopy possible today -GI consulted, appreciate recommendations -GoLytely prep -Tube feeds on hold and blood sugar every 6 hourly -Prbc if Hgb remains below 7 # Klebsiella UTI -Patient's UA showed WBC 30+ bacteria with turbidity. Plan: -Zosyn was discontinued and started ceftriaxone -Urine culture grew Klebsiella sensitive to ceftriaxone resistant to Zosyn #Electrolyte disturbance #Hypokalemia -Potassium was 2.4 repeat was 2.8 Plan -Replete 80 mEq IV potassium x 1 #Acute on chronic hypoxic respiratory failure 2/2 Healthcare acquired pneumonia s/p trach tube #Persistent vegetative state post Anoxic brain injury #Metabolic alkalosis: Resolved #Leukocytosis -Imaging: Chest x-ray showed left base pneumonia. -Previous ET sec grew Klebsiella -Zosyn discontinued Plan: -Continuing IV ceftriaxone -Cont Ventilator #Lactic acidosis Type A, resolved -related to hypotension vs blood loss Plan: -IV fluids and blood transfusion given #Leukocytosis: -wbc downtrending Plan: -Continue IV ceftriaxone # Thrombocytopenia -Likely related to blood loss Plan: -SCDs for DVT prophylaxis -Bleeding precautions #Hx of seizures #Hx Atrial Fib #Hx of GERD and constipation #S/P Peg tube placement -EKG showed sinus tacy -Chadsvasc score 1 Plan: -Resume home meds including keppra,clonazepam and amiodarone -Seizure precautions -Stopped aspirin due to GI bleed Health Maintanance: Diet: PEG tube,Go lYtely prep GI prophylaxis:Protonix q12h DVT prophylaxis: SCDs Code status: DNR/DNI Disposition: Patient is admitted for acute blood loss anemia likely GI bleed. Dr. Del Cid has been consulted for further evaluation. Colonoscopy pending. - Patient's care was discussed with my attending physician, Dr. Alisa Cordero MD Internal Medicine PGY-3 Attending Provider Attestation/Addendum I have examined the patient, reviewed labs and imaging findings, discussed the case with the resident(s), and reviewed entered orders. I agree with the plan of care as outlined in this note, with these additional summaries/recommendations: Patient seen at bedside. No acute overnight events. Patient noted to have significant secretions today. Continue frequent suctioning. Patient is trached and pegged and no history can be obtained. Case management and neurology working on conservatorship. Patient pending colonoscopy with gastroenterology for life threatening GI bleed. Gastroenterology following. Continue Rocephin for urinary tract infection. Urine culture grew Klebsiella pneumonia and blood culture showed no growth at 48 hours. Lactic acidosis resolved. Continue patient's home antiepileptics for seizure disorder. Continue amiodarone for history of atrial fibrillation. Repeat hematology and chemistry panel in AM. Dr. Cuellar
--- NOTE | 2024-05-01 15:53 | ESPR_ITS ---
Documentation for date of: 05/01/24 Subjective Subjective Interval history: Patient was scheduled for a colonoscopy she is still not clear Patient will be given to tapwater enemas I spoke to the RN Additional GoLytely Colonoscopy scheduled for tomorrow Exam Vital Signs Temp Pulse Resp BP Pulse Ox O2 Del Method O2 Flow Rate 97.3 F 104 H 23 H 123/98 H 95 Mechanical Ventilation 40 05/01/24 11:49 05/01/24 13:17 05/01/24 11:49 05/01/24 11:49 05/01/24 13:17 05/01/24 11:49 05/01/24 11:49 FiO2 35 05/01/24 13:17 Objective Labs 05/01/24 05:50 05/01/24 12:28 Labs: Laboratory Results - last 24 hr 04/28/24 05/01/24 05/01/24 10:51 00:20 05:50 WBC 8.3 D RBC 3.28 L Hgb 9.2 L Hct 29.2 L MCV 89 MCH 28.0 MCHC 31.5 RDW Std Deviation 57.0 H Plt Count 112 L Neut % (Auto) 85 H Lymph % (Auto) 9 L [place] % (Auto) 5 Eos % (Auto) 0 Baso % (Auto) 0 Neut # (Auto) 7.1 Lymph # (Auto) 0.7 L [place] # (Auto) 0.4 Eos # (Auto) 0.0 Baso # (Auto) 0.0 Immature Gran # (Auto) 0.03 H Absolute Nucleated RBC 0.04 H Immature Gran % 0 Nucleated RBC % 1 H Sodium 145 Potassium 2.9 L 2.9 L Chloride 104 Carbon Dioxide 30.8 Anion Gap 10 BUN 12 Creatinine 0.5 L Estim Creat Clear Calc 105.6 eGFR > 60 BUN/Creatinine Ratio 24 H Glucose 79 Calculated Osmolality 287 Calcium 8.1 L Corrected Calcium 8.7 Phosphorus 1.8 L Magnesium 1.9 Total Bilirubin 0.5 AST 31 ALT 31 Alkaline Phosphatase 86 Total Protein 6.0 Albumin 3.3 L Globulin 2.7 Albumin/Globulin Ratio 1.2 Crossmatch See Detail 05/01/24 12:28 WBC RBC Hgb Hct MCV MCH MCHC RDW Std Deviation Plt Count Neut % (Auto) Lymph % (Auto) [place] % (Auto) Eos % (Auto) Baso % (Auto) Neut # (Auto) Lymph # (Auto) [place] # (Auto) Eos # (Auto) Baso # (Auto) Immature Gran # (Auto) Absolute Nucleated RBC Immature Gran % Nucleated RBC % Sodium Potassium 3.0 L Chloride Carbon Dioxide Anion Gap BUN Creatinine Estim Creat Clear Calc eGFR BUN/Creatinine Ratio Glucose Calculated Osmolality Calcium Corrected Calcium Phosphorus Magnesium Total Bilirubin AST ALT Alkaline Phosphatase Total Protein Albumin Globulin Albumin/Globulin Ratio Crossmatch Impressions Impression: # Posthemorrhagic anemia Additional GoLytely tapwater enemas Colonoscopy a.m. ABG Interpretation ABG results: 04/28/24 10:51 VBG pH 7.61 VBG pCO2 30 L VBG pO2 80 H VBG Base Excess 7 H Assessment & Plan A&P Narrative # Anemia blood loss requiring blood transfusion # Hemoccult positive stool # Anoxic brain injury requiring tracheostomy and mechanical ventilation and gastrostomy tube placement Plan GoLytely prep via the G-tube Once cleared we will schedule the colonoscopy with possible therapeutic intervention under intravenous moderate sedation Agree with the blood transfusion Thank you very much for the opportunity to participate in the care of this patient Time Spent With Patient Time: Total time spent is greater than 50% in coordination of care (as documented) at patient's floor/unit and/or counseling patient:
--- NOTE | 2024-05-01 16:01 | VVPN_ITS ---
Telemedicine visit statement This visit was conducted with the use of phone was obtained on 05/01/24 at 1601. Documentation for date of: 05/01/24 Subjective Subjective Interval history: Patient is in telemetry, and got transferred from [facility] for GI bleeding with a drop in hematocrit. Patient received several units of blood transfusion and the Hgb is up to 9.7 now. Patient is getting bowel prep for colonoscopy. Virtual exam Vital Signs Temp Pulse Resp BP Pulse Ox O2 Del Method O2 Flow Rate 97.6 F 99 22 H 141/77 H 95 Mechanical Ventilation 40 05/01/24 15:54 05/01/24 15:54 05/01/24 15:54 05/01/24 15:54 05/01/24 15:54 05/01/24 15:54 05/01/24 15:54 FiO2 40 05/01/24 15:54 Objective Labs 05/01/24 05:50 05/01/24 12:28 Labs: Laboratory Results - last 24 hr 04/28/24 05/01/24 05/01/24 10:51 00:20 05:50 WBC 8.3 D RBC 3.28 L Hgb 9.2 L Hct 29.2 L MCV 89 MCH 28.0 MCHC 31.5 RDW Std Deviation 57.0 H Plt Count 112 L Neut % (Auto) 85 H Lymph % (Auto) 9 L [place] % (Auto) 5 Eos % (Auto) 0 Baso % (Auto) 0 Neut # (Auto) 7.1 Lymph # (Auto) 0.7 L [place] # (Auto) 0.4 Eos # (Auto) 0.0 Baso # (Auto) 0.0 Immature Gran # (Auto) 0.03 H Absolute Nucleated RBC 0.04 H Immature Gran % 0 Nucleated RBC % 1 H Sodium 145 Potassium 2.9 L 2.9 L Chloride 104 Carbon Dioxide 30.8 Anion Gap 10 BUN 12 Creatinine 0.5 L Estim Creat Clear Calc 105.6 eGFR > 60 BUN/Creatinine Ratio 24 H Glucose 79 Calculated Osmolality 287 Calcium 8.1 L Corrected Calcium 8.7 Phosphorus 1.8 L Magnesium 1.9 Total Bilirubin 0.5 AST 31 ALT 31 Alkaline Phosphatase 86 Total Protein 6.0 Albumin 3.3 L Globulin 2.7 Albumin/Globulin Ratio 1.2 Crossmatch See Detail 05/01/24 12:28 WBC RBC Hgb Hct MCV MCH MCHC RDW Std Deviation Plt Count Neut % (Auto) Lymph % (Auto) [place] % (Auto) Eos % (Auto) Baso % (Auto) Neut # (Auto) Lymph # (Auto) [place] # (Auto) Eos # (Auto) Baso # (Auto) Immature Gran # (Auto) Absolute Nucleated RBC Immature Gran % Nucleated RBC % Sodium Potassium 3.0 L Chloride Carbon Dioxide Anion Gap BUN Creatinine Estim Creat Clear Calc eGFR BUN/Creatinine Ratio Glucose Calculated Osmolality Calcium Corrected Calcium Phosphorus Magnesium Total Bilirubin AST ALT Alkaline Phosphatase Total Protein Albumin Globulin Albumin/Globulin Ratio Crossmatch ABG Interpretation ABG results: 04/28/24 10:51 VBG pH 7.61 VBG pCO2 30 L VBG pO2 80 H VBG Base Excess 7 H Assessment & Plan Problem List (1) Anoxic brain damage, not elsewhere classified: Status: Chronic Assessment and plan: She is in persistent vegetative status with spasticity and quadriplegia (2) Severe anemia: Status: Acute Assessment and plan: Hemoglobin: 3, received several units of blood transfusion, now it is 9.7 (3) Tracheostomy dependent: Status: Chronic Assessment and plan: Stable (4) Heart disease, hypertensive: Status: Chronic Assessment and plan: Continue with Lasix and amiodarone (5) Tracheostomy status: Status: Chronic Assessment and plan: Stable and is getting frequent and periodic suctioning
[2024-05-01] MEDS: NA SU/NAHCO3/KC/PEG (Golytely) 4,000 ML BTL 4000 ML GT (16:26)
[2024-05-02] VITALS (19 sets, daily range): BP systolic 104–153; BP diastolic 65–95; PULSE 46–101; RESP 12–35; TEMP 35.6–36.1; O2SAT 92–100; BMI 41.7
[2024-05-02] MEDS: SODIUM CHLORIDE 0.9% 1000 ML 1,000 ML 75 ML IV (05:18)
[2024-05-02] MEDS: DEXTROSE 50%-WATER INJ 50 ML SYRINGE 25 ML IV (05:30)
[2024-05-02 07:15] LABS: Alanine Aminotransferase 24 U/L (10-49); Albumin, Serum 3.2 gm/dL (3.4-4.8); Albumin/Globulin Ratio 1.1 (1.2-2.2); Alkaline Phosphatase 89 U/L (46-116); Anion Gap 11 (7-16); Aspartate Amino Transferase 34 U/L (0-34); BUN/Creatinine Ratio 18 Ratio (12-20); Bilirubin,Total 0.4 mg/dL (0.3-1.2); Blood Urea Nitrogen 9 mg/dL (9-23); Calcium 8.3 mg/dL (8.3-10.6); Calcium (Corrected) 8.9 mg/dL (8.5-10.1); Carbon Dioxide 28.9 mMol/L (20.0-31.0); Chloride 103 mMol/L (98-107); Creatinine (Component) 0.5 mg/dL (0.6-1.3); Estimated Creatinine Clearance 106.4 mL/min (>60); Glucose 118 mg/dL (74-106); Osmolality,Calculated 284 (275-295); Phosphorous 1.6 mg/dL (2.4-5.1); Sodium 143 mMol/L (136-145); Total Protein 6.2 gm/dL (5.7-8.2); eGFR > 60 See Note
[2024-05-02 07:19] LABS: Potassium 2.4 mMol/L (3.4-5.1)
--- NOTE | 2024-05-02 07:38 | ESPR_ITS ---
Documentation for date of: 05/02/24 Subjective Subjective Interval history: Patient was seen and examined at the bedside. RN reported the patient is not still clear however possible will be clear today and will be getting colonoscopy. Patient is trach and PEG therefore limited history for subjective. Patient appears more swollen with gurgling and crackles heard on auscultation most likely due to fluids. IV fluids were discontinued. Dextrose at 30 cc was started as patient is still NPO. Blood cultures have been negative for 48 hours. Will continue with Rocephin for UTI. Will resume tube feeds once colonoscopy is performed. Vitals were stable and patient is mechanically ventilated on FiO2 35%. CBC was pending. CHEM panel showed hypokalemia potassium 2.480 mEq KCl was repleted x 1 and IV K-Phos was given for hypophosphatemia. Chest x-ray this morning showed prominent CHF and superimposed pneumonia at lung bases. Will closely monitor and likely follow-up on colonoscopy results. All labs and orders were reviewed. Exam Vital Signs Temp Pulse Resp BP Pulse Ox O2 Del Method O2 Flow Rate 96.9 F 75 22 H 112/66 95 Mechanical Ventilation 40 05/02/24 04:00 05/02/24 07:20 05/02/24 07:20 05/02/24 04:00 05/02/24 07:20 05/02/24 04:00 05/02/24 04:00 FiO2 35 05/02/24 07:20 Narrative Exam GENERAL APPEARANCE: Patient is nonverbal, tracheostomy with mechanically ventilated. HEENT: NC, AT. MMM. EOMI, clear conjunctiva, oropharynx clear. Flushing around neck. NECK: Supple without lymphadenopathy. Tracheostomy tube seen. HEART: Regular rate and regular rhythm, normal S1/S2, no m/r/g LUNGS: Bilateral rhonchi heard on auscultation with coarse breath sounds and crackles heard on auscultation ABDOMEN: Soft, nontender, nondistended with good bowel sounds heard. PEG tube in place. BACK: No CVAT, no obvious deformity. EXTREMITIES: Upper extremities in flexed posture. Right upper extremity swollen. NEUROLOGICAL: Grossly nonfocal. Patient is nonverbal with tracheostomy and PEG tube. Skin: Warm and dry without any rash. Objective Labs 05/02/24 14:15 05/02/24 14:15 Labs: Laboratory Results - last 24 hr 04/28/24 05/01/24 05/02/24 10:51 12:28 05:43 Sodium 143 Potassium 3.0 L 2.4 L* D Chloride 103 Carbon Dioxide 28.9 Anion Gap 11 BUN 9 Creatinine 0.5 L Estim Creat Clear Calc 106.4 eGFR > 60 BUN/Creatinine Ratio 18 Glucose 118 H Calculated Osmolality 284 Calcium 8.3 Corrected Calcium 8.9 Phosphorus 1.6 L Magnesium 2.0 Total Bilirubin 0.4 AST 34 ALT 24 Alkaline Phosphatase 89 Total Protein 6.2 Albumin 3.2 L Globulin 3.0 Albumin/Globulin Ratio 1.1 L Crossmatch See Detail ABG Interpretation ABG results: 04/28/24 10:51 VBG pH 7.61 VBG pCO2 30 L VBG pO2 80 H VBG Base Excess 7 H Quality Measures Quality Measures VTE prophylaxis (SCDs) Advance care planning discussed with:: other Assessment & Plan Assessment Current Active Medications: Generic Name Dose Route Start Last Admin Trade Name Freq PRN Reason Stop Dose Admin Acetaminophen 650 mg 04/28/24 11:24 Acetaminophen 325 Mg Tablet PO 05/28/24 11:23 Q6H PRN Fever >101.5 Acetaminophen 650 mg 04/28/24 11:24 Acetaminophen 325 Mg Tablet PO 05/28/24 11:23 Q6H PRN PAIN SCALE 1-3 (mild Albuterol/Ipratropium 3 ml 04/28/24 11:36 04/29/24 02:08 Albuterol/Ipratropium (Duoneb) Rt Aria 3 Ml Nebu INH 05/28/24 12:59 3 ml Q6HRRT PRN Administration wheezing Amiodarone HCl 100 mg 04/28/24 13:45 05/01/24 08:05 Amiodarone Hcl 200 Mg Tablet GT 05/28/24 13:44 100 mg QDAY MARTINEZ Administration Bisacodyl 10 mg 04/28/24 13:42 Bisacod[address] 05/28/24 13:41 QDAY PRN CONSTIPATION Protocol Carbamide Peroxide 5 drop 04/28/24 14:00 05/01/24 20:24 Carbamide Peroxide Otic Aria 15 Ml Btl BOTH EARS 05/28/24 13:59 5 drop BID MARTINEZ Administration Clonazepam 0.5 mg 04/28/24 14:00 05/01/24 20:25 Clonazepam 0.5 Mg Tablet GT 05/03/24 13:59 0.5 mg BID MARTINEZ Administration Dextrose 25 ml 04/30/24 14:46 05/02/24 05:30 Dextrose 50%-Water Inj 50 Ml Syringe IV 05/30/24 14:45 25 ml Q15MIN PRN Administration BG 50-70 responsive npo pt Dextrose 50 ml 04/30/24 14:46 Dextrose 50%-Water Inj 50 Ml Syringe IV 05/30/24 14:45 Q15MIN PRN BG <50 OR BG <70 & pt unresponsive Glucagon 1 mg 04/30/24 14:46 Glucagon Inj 1 Mg Vial IM Q15MIN PRN BG <70, and no IV access Glycopyrrolate 1 mg 04/28/24 14:00 05/01/24 08:05 Glycopyrrolate 1 Mg Tablet GT 05/28/24 13:59 1 mg QDAY MARTINEZ Administration Guaifenesin 300 mg 04/28/24 13:42 Guaifenesin Syrup 200 Mg/10 Ml Udc GT 05/28/24 13:41 Q6H PRN COUGH Protocol Ceftriaxone Sodium/Dextrose 50 mls @ 100 mls/hr 04/30/24 10:00 05/01/24 08:07 Rocephin/D5w 1gm Iv Premix IV 05/07/24 09:59 100 mls/hr QDAY MARTINEZ Administration Potassium Phosphate 22.5 mmol/ 507.5 mls @ 82.778 mls/hr 05/02/24 07:31 Sodium Chloride IV 05/02/24 13:38 X1 ONE Potassium Chloride 10 meq in 100 mls @ 100 mls/hr 05/02/24 07:31 Kcl Ivpb IV 05/02/24 11:30 Q1H MARTINEZ Dextrose 1,000 mls @ 30 mls/hr 05/02/24 07:45 D5w IV 06/01/24 07:44 .Q24H MARTINEZ Potassium Chloride 10 meq in 100 mls @ 100 mls/hr 05/02/24 15:00 Kcl Ivpb IV 05/02/24 18:59 Q1H MARTINEZ Levetiracetam 750 mg 04/28/24 14:00 05/01/24 20:25 Levetiracetam Liqd 500 Mg/5 Ml Udc GT 05/28/24 13:59 750 mg BID MARTINEZ Administration Lorazepam 2 mg 04/28/24 13:47 Lorazepam 2 Mg/Ml Vial IVP 05/03/24 13:46 Q8HR PRN breakthrough seizures Magnesium Hydroxide 30 ml 04/28/24 13:47 Milk Of Magnesia Susp 30 Ml Udc GT 05/28/24 13:46 Q6H PRN CONSTIPATION Protocol Ondansetron HCl 4 mg 04/28/24 11:24 Ondansetron Inj 2 Mg/Ml Inj 2 Ml IV 05/28/24 11:23 Q6H PRN NAUSEA OR VOMITING Protocol Pantoprazole Sodium 40 mg 04/28/24 21:00 05/01/24 20:24 Pantoprazole Inj 40 Mg Vial IVP 05/28/24 20:59 40 mg Q12HR MARTINEZ Administration Polyethylene Glycol 17 gm 04/28/24 13:42 Polyethylene Glycol 17 Gm Packet PO 05/28/24 13:41 QDAY PRN CONSTIPATION Protocol Plan Summary: This patient is a 69-year-old female with past medical history of seizures, anoxic brain injury with persistent vegetative state chronic respiratory failure status post tracheostomy with ventilator dependent and G- tube placement, history of hypertension, history of A-fib presented from subacute with low hemoglobin level. Per RN, staff at the subacute reported the patient's hemoglobin was significantly low at 3.6 and hematocrit 12.4. Patient was sent to ED for further evaluation. Patient is nonverbal at baseline therefore majority history was taken from patient's chart. In the ED, patient's vitals showed blood pressure 101/63, tachycardia, tachypnea and mild temp 99. Patient is ventilating 100% on mechanical ventilator. Patient did had EGD on April 08 which showed gastritis pattern.EGD showed esophagitis, gastritis with erythema. #Acute severe blood loss anemia due to GI bleed #Hypotension, improving #Esophagitis with gastritis pattern per EGD, 04/08/2024 -DDx GI bleed vs aspirin use -Patient presented from subacute with blood loss Patient is nonverbal at baseline. -hemoglobin 3.6 .Lactic acidosis 2.9. Urine was turbid with WBC 30+ bacteria 4+ on admission. -EGD showed esophagitis with gastritis present on April 08, 2024. -4 units PRBC transfused in total Plan: -Will resume tube feeds once colonoscopy is completed -Pending colonoscopy possible today -GI consulted, appreciate recommendations -GoLytely prep -D5 at 30 cc/h -Tube feeds on hold and blood sugar every 6 hourly -Prbc if Hgb remains below 7 # Klebsiella UTI -Patient's UA showed WBC 30+ bacteria with turbidity. Plan: -Continue ceftriaxone until 05/07 -Urine culture grew Klebsiella sensitive to ceftriaxone resistant to Zosyn #Electrolyte disturbance #Hypokalemia #Hypophosphatemia -Potassium was 2.4, phosphorus 1.6 Plan -Replete 80 mEq IV potassium x 1 -repleted with K-Phos x 1 #Fluid overload #Bilateral upper extremity swelling -Most likely related to fluids -Patient did appear swollen more on both upper and lower extremity Plan: -DC'd IV fluids and started D5 at 30 cc as patient is n.p.o. #Acute on chronic hypoxic respiratory failure 2/2 Healthcare acquired pneumonia s/p trach tube #Persistent vegetative state post Anoxic brain injury #Quadriplegic #Metabolic alkalosis: Resolved #Leukocytosis -Imaging: Chest x-ray showed left base pneumonia. -Previous ET sec grew Klebsiella -Zosyn discontinued Plan: -Continuing IV ceftriaxone -Cont Ventilator #Lactic acidosis Type A, resolved -related to hypotension vs blood loss Plan: -IV fluids and blood transfusion given #Leukocytosis: -wbc downtrending Plan: -Continue IV ceftriaxone #Thrombocytopenia -Likely related to blood loss Plan: -SCDs for DVT prophylaxis -Bleeding precautions #Hx of seizures #Hx Atrial Fib #Hx of GERD and constipation #S/P Peg tube placement -EKG showed sinus tacy -Chadsvasc score 1 Plan: -Resume home meds including keppra,clonazepam and amiodarone -Seizure precautions -Stopped aspirin due to GI bleed Health Maintanance: Diet: PEG tube,Go lYtely prep GI prophylaxis:Protonix q12h DVT prophylaxis: SCDs Code status: DNR/DNI Disposition: Patient is admitted for acute blood loss anemia likely GI bleed. Dr. Del Cid has been consulted for further evaluation. Colonoscopy pending. - Patient was seen and discussed with attending physician, Dr. Alisa Mann MD, PGY 2 Attending Provider Attestation/Addendum I have examined the patient, reviewed labs and imaging findings, discussed the case with the resident(s), and reviewed entered orders. I agree with the plan of care as outlined in this note, with these additional summaries/recommendations: Patient seen at bedside. No acute overnight events. Patient is trached and pegged and no history can be obtained. Case management and neurology working on conservatorship. Patient pending colonoscopy with gastroenterology for GI bleed. Patient has still not cleared despite extensive golytely. Patient now receiving tap water enemas. If stool clears patient will go for colonoscopy today. Continue Rocephin for urinary tract infection. Urine culture grew Klebsiella pneumonia and blood culture showed no growth at 48 hours. Lactic acidosis resolved. Continue patient's home antiepileptics for seizure disorder. Continue amiodarone for history of atrial fibrillation. Repeat hematology and chemistry panel in AM. Dr. Cuellar
[2024-05-02] MEDS: DEXTROSE 5%-WATER 1,000 ML 30 ML IV (07:47)
[2024-05-02] MEDS: POTASSIUM CHL 10 mEq IVPB 10 MEQ/100 ML BAG 100 MEQ IV ×8 (07:47→21:51)
[2024-05-02] MEDS: levETIRAcetam LIQD 500 MG/5 ML UDC 750 MG GT ×2 (08:23→20:13)
[2024-05-02] MEDS: AMIODARONE HCL 200 MG TABLET 100 MG GT (08:24)
[2024-05-02] MEDS: GLYCOPYRROLATE 1 MG TABLET GT (08:24)
[2024-05-02] MEDS: clonazePAM 0.5 MG TABLET GT ×2 (08:24→20:13)
[2024-05-02] MEDS: PANTOPRAZOLE INJ 40 MG VIAL IVP ×2 (08:25→20:13)
[2024-05-02] MEDS: CARBAMIDE PEROXIDE OTIC SOL 15 ML BTL 5 DROP BOTH EARS ×2 (08:25→20:13)
[2024-05-02] MEDS: cefTRIAXone/D5w 1gm IV premix 50 ML IV (08:25)
--- NOTE | 2024-05-02 09:20 | XR_ITS ---
Examination: AP chest single view Technique one AP portable upright chest single view Exam date and time: May 02, 2024 0940 hrs. Comparison April 28, 2024 Indications: Wheezing today. Findings: Interval prominent CHF Moderate enlargement cardiac contour, very prominent vascular congestion including central vascular engorgement and perihilar edema Consider superimposed pneumonia at the lung bases Tracheostomy tube tip 5.8 cm above [place] Impression: Interval prominent CHF Consider superimposed pneumonia at the lung bases
[2024-05-02] MEDS: POTASSIUM PHOS 22.5 MMOL in SODIUM CHLORIDE 0.9% 500 ML 500 ML 82.778 MMOL IV (09:51)
[2024-05-02] MEDS: ALBUTEROL/IPRATROPIUM (Duoneb) RT SOL 3 ML NEBU INH (13:53)
--- NOTE | 2024-05-02 14:04 | XR_ITS ---
Examination: AP chest single view TECHNIQUE: An AP portable upright chest single view Standing time: May 02, 2024 1417 hours Comparison May 02, 2024 0947 hours INDICATIONS: Wheezing today difficulty breathing FINDINGS: Prominent CHF Bilateral margin cardiac quadrant Prominent vascular congestion including central vascular engorgement Consider superimposed bilateral pneumonia Tracheostomy tube tip 7.4 cm above [place] IMPRESSION: Prominence CHF Consider superimposed bilateral pneumonia, especially left base
[2024-05-02] MEDS: FUROSEMIDE INJ 10 MG/ML VIAL 2 ML 20 MG IVP (14:13)
--- NOTE | 2024-05-02 14:16 | PD.RESEVENT ---
Documentation for date of: 05/02/24 Event Note Event Note: Rapid response: Rapid response was called at 14: 10 due to hypoxia patient was desaturating below to 30% on mechanical ventilator. Patient is in chronic vegetative status post tracheostomy therefore immediate suctioning was performed and prompt improvement was seen in oxygen saturations to 90%. Vitals showed blood pressure 120/76, heart rate 101, respiratory rate 22. Blood sugars 150 mg/dL. Stat chest x-ray and ABGs were ordered.We stopped D5W and gave her IV Lasix 20 mg x 1 was given. Will continue with frequent suctioning. Will do bladder scan as needed and straight cath in and out if she retains urine. Follow-up with ABGs, chest x-ray, serum potassium and hemoglobin as she had difficult blood draw today. Will closely monitor for hypoxic episode. Currently on same settings since morning for mechanical ventilator. Will closely monitor. Patient was seen and discussed with attending physician, Dr. Alisa Mann MD, PGY 2
[2024-05-02 14:27] LABS: Base Excess 5 (-3-3); HCO3 32 mEq/L (20-26); Inspired Oxygen, FIO2 100 %; O2 Saturation 101 % (91-98); PCO2 64 mmHg (32.0-48.0); PO2 215 mmHg (83-108); pH, Arterial 7.31 (7.35-7.45)
--- NOTE | 2024-05-02 14:30 | PC.NURSE ---
Rapid response called at 1359 related to acute desaturation during brief change. Patient desated to 40% on ventilator.
[2024-05-02 14:32] LABS: Allen Test Performed/OK; Puncture Site Right Radial
[2024-05-02 14:35] LABS: Potassium 3.1 mMol/L (3.4-5.1)
[2024-05-02 14:36] LABS: Basophils % (Auto) 0 % (0-2.5); Eosinophils % (Auto) 0 % (0-10); Hematocrit 35.1 % (36.0-46.0); Hemoglobin 10.7 g/dL (12.0-16.0); Immature Granulocytes % (Auto) 1 % (0-0); Immature Granulocytes Auto 0.08 Thou/mm3 (0.00-0.00); Lymphocytes # (Auto) 0.8 Thou/mm3 (1.0-4.8); Lymphocytes % (Auto) 9 % (10-50); Mean Corpuscular HGB Conc 30.5 g/dl (31.0-37.0); Mean Corpuscular Hemoglobin 27.4 pg (25.0-35.0); Mean Corpuscular Volume 90 fL (80-100); Monocytes # (Auto) 0.6 Thou/mm3 (0.0-0.8); Monocytes % (Auto) 6 % (0-12); Neutrophils # (Auto) 7.8 Thou/mm3 (1.8-7.7); Neutrophils % (Auto) 84 % (37-80); Nucleated Red Blood Cell % 1 /100 WBC (0); Platelet Count 148 Thou/mm3 (140-440); RDW Standard Deviation 58.4 fL (36.4-46.3); White Blood Count 9.3 Thou/mm3 (3.6-11.0)
--- NOTE | 2024-05-02 15:52 | PC.NURSE ---
Endoscopy team at bedside. RT Geoff at bedside.
--- NOTE | 2024-05-02 23:08 | PD.NEUROPROG ---
Documentation for date of: 05/02/24 Subjective Subjective Interval history: Patient was seen in telemetry today at the bedside. No changes reported. Exam - Neurology Vital Signs Temp Pulse Resp BP Pulse Ox O2 Del Method O2 Flow Rate 97.0 F 90 25 H 129/86 H 100 Mechanical Ventilation 40 05/02/24 20:00 05/02/24 20:00 05/02/24 20:00 05/02/24 20:00 05/02/24 20:00 05/02/24 20:00 05/02/24 20:00 FiO2 57 05/02/24 20:00 Narrative Exam GENERAL APPEARANCE: Well-developed obese built white female in no acute distress. HEENT: Normocephalic, atraumatic, pupils: Equal reacting to light NECK: Supple, no JVD or bruits. CARDIOVASULAR: Heart: S1, S2 heard, regular without S3-S4 or murmur no rubs or gallops. LUNGS/CHEST: Clear to auscultation bilaterally. No rails, rhonchi, or wheezing. Normal inspection. ABDOMEN: Soft, nontender, with normal bowel sounds. No pulsatile masses. No rebound, rigidity, or guarding. Normal inspection and palpation. EXTREMITIES: Normal inspection and palpation. No edema, clubbing or cyanosis. SKIN: Warm and dry without rashes. Normal inspection. MUSCULOSKELETAL: No cervical, thoracic, lumbar or midline bony tenderness. Normal inspection. NEURO: Continues to remain in persistent vegetative state PSYCHIATRIC: Not able to assess FRom PVS Objective Labs 05/02/24 14:15 05/02/24 14:15 Labs: Laboratory Results - last 24 hr 05/02/24 05/02/24 05/02/24 05:43 14:15 14:15 WBC Cancelled 9.3 RBC Cancelled Hgb Hct MCV MCH MCHC RDW Std Deviation Plt Count Neut % (Auto) Lymph % (Auto) [place] % (Auto) Eos % (Auto) Baso % (Auto) Neut # (Auto) Lymph # (Auto) [place] # (Auto) Eos # (Auto) Baso # (Auto) Immature Gran # (Auto) Absolute Nucleated RBC Immature Gran % Nucleated RBC % Puncture Site ABG pH ABG pCO2 ABG pO2 ABG HCO3 ABG O2 Saturation ABG Base Excess FiO2 Sodium 143 Potassium 2.4 L* D Chloride 103 Carbon Dioxide 28.9 Anion Gap 11 BUN 9 Creatinine 0.5 L Estim Creat Clear Calc 106.4 eGFR > 60 BUN/Creatinine Ratio 18 Glucose 118 H Calculated Osmolality 284 Calcium 8.3 Corrected Calcium 8.9 Phosphorus 1.6 L Magnesium 2.0 Total Bilirubin 0.4 AST 34 ALT 24 Alkaline Phosphatase 89 Total Protein 6.2 Albumin 3.2 L Globulin 3.0 Albumin/Globulin Ratio 1.1 L 05/02/24 05/02/24 05/02/24 14:15 14:15 14:15 WBC RBC 3.90 L Hgb Cancelled 10.7 L Hct Cancelled 35.1 L MCV Cancelled MCH MCHC RDW Std Deviation Plt Count Neut % (Auto) Lymph % (Auto) [place] % (Auto) Eos % (Auto) Baso % (Auto) Neut # (Auto) Lymph # (Auto) [place] # (Auto) Eos # (Auto) Baso # (Auto) Immature Gran # (Auto) Absolute Nucleated RBC Immature Gran % Nucleated RBC % Puncture Site ABG pH ABG pCO2 ABG pO2 ABG HCO3 ABG O2 Saturation ABG Base Excess FiO2 Sodium Potassium Chloride Carbon Dioxide Anion Gap BUN Creatinine Estim Creat Clear Calc eGFR BUN/Creatinine Ratio Glucose Calculated Osmolality Calcium Corrected Calcium Phosphorus Magnesium Total Bilirubin AST ALT Alkaline Phosphatase Total Protein Albumin Globulin Albumin/Globulin Ratio 05/02/24 05/02/24 05/02/24 14:15 14:15 14:15 WBC RBC Hgb Hct MCV 90 MCH Cancelled 27.4 MCHC Cancelled 30.5 L RDW Std Deviation Cancelled Plt Count Neut % (Auto) Lymph % (Auto) [place] % (Auto) Eos % (Auto) Baso % (Auto) Neut # (Auto) Lymph # (Auto) [place] # (Auto) Eos # (Auto) Baso # (Auto) Immature Gran # (Auto) Absolute Nucleated RBC Immature Gran % Nucleated RBC % Puncture Site ABG pH ABG pCO2 ABG pO2 ABG HCO3 ABG O2 Saturation ABG Base Excess FiO2 Sodium Potassium Chloride Carbon Dioxide Anion Gap BUN Creatinine Estim Creat Clear Calc eGFR BUN/Creatinine Ratio Glucose Calculated Osmolality Calcium Corrected Calcium Phosphorus Magnesium Total Bilirubin AST ALT Alkaline Phosphatase Total Protein Albumin Globulin Albumin/Globulin Ratio 05/02/24 05/02/24 05/02/24 14:15 14:15 14:15 WBC RBC Hgb Hct MCV MCH MCHC RDW Std Deviation 58.4 H Plt Count Cancelled 148 D Neut % (Auto) Cancelled 84 H Lymph % (Auto) Cancelled [place] % (Auto) Eos % (Auto) Baso % (Auto) Neut # (Auto) Lymph # (Auto) [place] # (Auto) Eos # (Auto) Baso # (Auto) Immature Gran # (Auto) Absolute Nucleated RBC Immature Gran % Nucleated RBC % Puncture Site ABG pH ABG pCO2 ABG pO2 ABG HCO3 ABG O2 Saturation ABG Base Excess FiO2 Sodium Potassium Chloride Carbon Dioxide Anion Gap BUN Creatinine Estim Creat Clear Calc eGFR BUN/Creatinine Ratio Glucose Calculated Osmolality Calcium Corrected Calcium Phosphorus Magnesium Total Bilirubin AST ALT Alkaline Phosphatase Total Protein Albumin Globulin Albumin/Globulin Ratio 05/02/24 05/02/24 05/02/24 14:15 14:15 14:15 WBC RBC Hgb Hct MCV MCH MCHC RDW Std Deviation Plt Count Neut % (Auto) Lymph % (Auto) 9 L [place] % (Auto) Cancelled 6 Eos % (Auto) Cancelled 0 Baso % (Auto) Cancelled Neut # (Auto) Lymph # (Auto) [place] # (Auto) Eos # (Auto) Baso # (Auto) Immature Gran # (Auto) Absolute Nucleated RBC Immature Gran % Nucleated RBC % Puncture Site ABG pH ABG pCO2 ABG pO2 ABG HCO3 ABG O2 Saturation ABG Base Excess FiO2 Sodium Potassium Chloride Carbon Dioxide Anion Gap BUN Creatinine Estim Creat Clear Calc eGFR BUN/Creatinine Ratio Glucose Calculated Osmolality Calcium Corrected Calcium Phosphorus Magnesium Total Bilirubin AST ALT Alkaline Phosphatase Total Protein Albumin Globulin Albumin/Globulin Ratio 05/02/24 05/02/24 05/02/24 14:15 14:15 14:15 WBC RBC Hgb Hct MCV MCH MCHC RDW Std Deviation Plt Count Neut % (Auto) Lymph % (Auto) [place] % (Auto) Eos % (Auto) Baso % (Auto) 0 Neut # (Auto) Cancelled 7.8 H Lymph # (Auto) Cancelled 0.8 L [place] # (Auto) Cancelled Eos # (Auto) Baso # (Auto) Immature Gran # (Auto) Absolute Nucleated RBC Immature Gran % Nucleated RBC % Puncture Site ABG pH ABG pCO2 ABG pO2 ABG HCO3 ABG O2 Saturation ABG Base Excess FiO2 Sodium Potassium Chloride Carbon Dioxide Anion Gap BUN Creatinine Estim Creat Clear Calc eGFR BUN/Creatinine Ratio Glucose Calculated Osmolality Calcium Corrected Calcium Phosphorus Magnesium Total Bilirubin AST ALT Alkaline Phosphatase Total Protein Albumin Globulin Albumin/Globulin Ratio 05/02/24 05/02/24 05/02/24 14:15 14:15 14:15 WBC RBC Hgb Hct MCV MCH MCHC RDW Std Deviation Plt Count Neut % (Auto) Lymph % (Auto) [place] % (Auto) Eos % (Auto) Baso % (Auto) Neut # (Auto) Lymph # (Auto) [place] # (Auto) 0.6 Eos # (Auto) Cancelled 0.0 Baso # (Auto) Cancelled 0.0 Immature Gran # (Auto) Cancelled Absolute Nucleated RBC Immature Gran % Nucleated RBC % Puncture Site ABG pH ABG pCO2 ABG pO2 ABG HCO3 ABG O2 Saturation ABG Base Excess FiO2 Sodium Potassium Chloride Carbon Dioxide Anion Gap BUN Creatinine Estim Creat Clear Calc eGFR BUN/Creatinine Ratio Glucose Calculated Osmolality Calcium Corrected Calcium Phosphorus Magnesium Total Bilirubin AST ALT Alkaline Phosphatase Total Protein Albumin Globulin Albumin/Globulin Ratio 05/02/24 05/02/24 05/02/24 14:15 14:15 14:15 WBC RBC Hgb Hct MCV MCH MCHC RDW Std Deviation Plt Count Neut % (Auto) Lymph % (Auto) [place] % (Auto) Eos % (Auto) Baso % (Auto) Neut # (Auto) Lymph # (Auto) [place] # (Auto) Eos # (Auto) Baso # (Auto) Immature Gran # (Auto) 0.08 H Absolute Nucleated RBC Cancelled 0.10 H Immature Gran % Cancelled 1 H Nucleated RBC % Cancelled Puncture Site ABG pH ABG pCO2 ABG pO2 ABG HCO3 ABG O2 Saturation ABG Base Excess FiO2 Sodium Potassium Chloride Carbon Dioxide Anion Gap BUN Creatinine Estim Creat Clear Calc eGFR BUN/Creatinine Ratio Glucose Calculated Osmolality Calcium Corrected Calcium Phosphorus Magnesium Total Bilirubin AST ALT Alkaline Phosphatase Total Protein Albumin Globulin Albumin/Globulin Ratio 05/02/24 05/02/24 14:15 14:16 WBC RBC Hgb Hct MCV MCH MCHC RDW Std Deviation Plt Count Neut % (Auto) Lymph % (Auto) [place] % (Auto) Eos % (Auto) Baso % (Auto) Neut # (Auto) Lymph # (Auto) [place] # (Auto) Eos # (Auto) Baso # (Auto) Immature Gran # (Auto) Absolute Nucleated RBC Immature Gran % Nucleated RBC % 1 H Puncture Site Right Radial ABG pH 7.31 L ABG pCO2 64 H ABG pO2 215 H ABG HCO3 32 H ABG O2 Saturation 101 H ABG Base Excess 5 H FiO2 100 Sodium Potassium 3.1 L D Chloride Carbon Dioxide Anion Gap BUN Creatinine Estim Creat Clear Calc eGFR BUN/Creatinine Ratio Glucose Calculated Osmolality Calcium Corrected Calcium Phosphorus Magnesium Total Bilirubin AST ALT Alkaline Phosphatase Total Protein Albumin Globulin Albumin/Globulin Ratio ABG Interpretation ABG results: 04/28/24 05/02/24 10:51 14:16 ABG pH 7.31 L ABG pCO2 64 H ABG pO2 215 H ABG HCO3 32 H ABG O2 Saturation 101 H ABG Base Excess 5 H VBG pH 7.61 VBG pCO2 30 L VBG pO2 80 H VBG Base Excess 7 H Assessment & Plan Assessment and plan (1) Anoxic brain damage, not elsewhere classified: Status: Chronic Assessment and plan: Unchanged from admission Continue with the Keppra, no seizures reported after admission. (2) Severe anemia: Status: Acute Assessment and plan: Going for colonoscopy after the bowel prep is completed. (3) Tracheostomy dependent: Status: Chronic Assessment and plan: Noted intermittent drop in oxygen saturation, being managed appropriately by primary team (4) Heart disease, hypertensive: Status: Chronic Assessment and plan: Continue with amiodarone, Lasix and potassium
[2024-05-03] VITALS (12 sets, daily range): BP systolic 99–141; BP diastolic 58–83; PULSE 59–100; RESP 21–27; TEMP 36.1–36.3; O2SAT 95–100; BMI 42.9
[2024-05-03 06:30] LABS: Basophils % (Auto) 0 % (0-2.5); Eosinophils % (Auto) 0 % (0-10); Hematocrit 27.9 % (36.0-46.0); Immature Granulocytes % (Auto) 0 % (0-0); Immature Granulocytes Auto 0.04 Thou/mm3 (0.00-0.00); Lymphocytes # (Auto) 0.6 Thou/mm3 (1.0-4.8); Lymphocytes % (Auto) 5 % (10-50); Mean Corpuscular HGB Conc 31.5 g/dl (31.0-37.0); Mean Corpuscular Hemoglobin 27.8 pg (25.0-35.0); Mean Corpuscular Volume 88 fL (80-100); Monocytes # (Auto) 0.6 Thou/mm3 (0.0-0.8); Monocytes % (Auto) 6 % (0-12); Neutrophils # (Auto) 10.1 Thou/mm3 (1.8-7.7); Neutrophils % (Auto) 89 % (37-80); Nucleated Red Blood Cell # 0.04 Thou/mm3 (0.00-0.00); Nucleated Red Blood Cell % 0 /100 WBC (0); Platelet Count 135 Thou/mm3 (140-440); RDW Standard Deviation 57.2 fL (36.4-46.3); Red Blood Count 3.16 Miln/mm3 (4.00-5.20); White Blood Count 11.4 Thou/mm3 (3.6-11.0)
[2024-05-03 06:35] LABS: Hemoglobin 8.8 g/dL (12.0-16.0)
[2024-05-03 06:57] LABS: Alanine Aminotransferase 17 U/L (10-49); Albumin, Serum 2.7 gm/dL (3.4-4.8); Alkaline Phosphatase 66 U/L (46-116); Anion Gap 6 (7-16); Aspartate Amino Transferase 14 U/L (0-34); BUN/Creatinine Ratio 12 Ratio (12-20); Bilirubin,Total 0.4 mg/dL (0.3-1.2); Blood Urea Nitrogen 6 mg/dL (9-23); Calcium 7.8 mg/dL (8.3-10.6); Calcium (Corrected) 8.8 mg/dL (8.5-10.1); Carbon Dioxide 35.9 mMol/L (20.0-31.0); Chloride 102 mMol/L (98-107); Creatinine (Component) 0.5 mg/dL (0.6-1.3); Estimated Creatinine Clearance 108.2 mL/min (>60); Globulin 2.6 gm/dL (2.3-3.5); Glucose 136 mg/dL (74-106); Magnesium 1.6 mg/dL (1.6-2.6); Osmolality,Calculated 286 (275-295); Sodium 144 mMol/L (136-145); Total Protein 5.3 gm/dL (5.7-8.2); eGFR > 60 See Note
[2024-05-03 07:10] LABS: Phosphorous 0.9 mg/dL (2.4-5.1); Potassium 2.4 mMol/L (3.4-5.1)
[2024-05-03] MEDS: GLYCOPYRROLATE 1 MG TABLET GT (08:18)
[2024-05-03] MEDS: POTASSIUM CHLORIDE 10% 20 MEQ/15 ML UDC 40 MEQ GT (08:18)
[2024-05-03] MEDS: levETIRAcetam LIQD 500 MG/5 ML UDC 750 MG GT ×2 (08:18→20:25)
[2024-05-03] MEDS: AMIODARONE HCL 200 MG TABLET 100 MG GT (08:18)
[2024-05-03] MEDS: Magnesium Sulfate 4 GM Ivpb 4 GM/50 ML BAG IV (08:19)
[2024-05-03] MEDS: CARBAMIDE PEROXIDE OTIC SOL 15 ML BTL 5 DROP BOTH EARS ×2 (08:19→20:25)
[2024-05-03] MEDS: clonazePAM 0.5 MG TABLET GT (08:20)
[2024-05-03] MEDS: POTASSIUM CHL 10 mEq IVPB 10 MEQ/100 ML BAG 100 MEQ IV ×4 (08:20→12:30)
[2024-05-03] MEDS: PANTOPRAZOLE INJ 40 MG VIAL IVP ×2 (08:20→20:25)
[2024-05-03] MEDS: cefTRIAXone/D5w 1gm IV premix 50 ML IV (08:20)
[2024-05-03] MEDS: NAPH,KPH MBDB 1 PACKET (1.5 GM) GT ×2 (08:54→20:25)
--- NOTE | 2024-05-03 09:33 | PC.NURSE ---
Dr. Cain aware of patient heart rate droping into the 40s. MD at bedside BP 84/46
--- NOTE | 2024-05-03 09:38 | CHAP ---
Responded to Rapid Response at 09:38. No family present. All was good. Prayed silent prayer in hallway.
[2024-05-03] MEDS: RINGERS LACTATED 1000 ML 1,000 ML 999 ML IV (09:44)
--- NOTE | 2024-05-03 10:12 | ESPR_ITS ---
<Statement entered by Candido Mann MD - 05/03/24 16:37> Patient was seen and examined at the bedside this morning. Patient had a rapid response due to hypotension and bolus of fluid was given. Patient blood pressure improved after fluid resuscitation. Patient is most likely having electrolyte imbalance due to GoLytely prep given 2 days ago. This morning, labs were significant for phosphorus 1.0 and potassium 2.4 we are correcting electrolytes and monitoring as well. She received 40 mEq p.o. and 40 mEq IV KCl x 1, IV K-Phos 22 mL back and repeated potassium and phosphorus at 7 PM to be followed up. Hemoglobin remained stable. Colonoscopy was unremarkable. Will likely discharge the patient back to subacute once electrolytes and blood pressure is stable. All labs and orders were reviewed. I saw and examined the patient, and I agree with current management stated by Dr Javon DO,PGY1. Plan of care was discussed with the attending physician and resident physician. Disclaimer: Despite multiple revisions, due to the dictation software being used, the document bellow may not be free of grammatical errors including phonetic/typographic errors. However, this does not deter from our commitment to providing health care in the patient's best interest in mind. Dr. Johnathan MD, PGY 2 Documentation for date of: 05/03/24 Subjective Subjective Interval history: Rapid response this am with BP with 76/40s. Status post 1 L normal saline with improvement of blood pressure to the 130 systolic. Repeat lactic acid-normal A.m. labs with low magnesium, Phos and potassium which were replenished. Dietitian consulted for possible re-feeding syndrome. Exam Vital Signs Temp Pulse Resp BP Pulse Ox O2 Del Method O2 Flow Rate 97.3 F 71 21 H 99/65 95 Mechanical Ventilation 40 05/03/24 07:34 05/03/24 08:18 05/03/24 07:34 05/03/24 08:18 05/03/24 07:34 05/03/24 07:34 05/03/24 04:00 FiO2 50 05/03/24 07:34 Narrative Exam Constitutional: Ill-appearing, trached and on the ventilator Head: Normocephalic/Atraumatic Eyes: PERRL , normal conjunctiva ENMT: Dry mucous membranes Neck: tracheostomy in place CVS: RRR, S1 and S2 present, no murmurs, rubs or gallops . RESP: Transmitted upper airways, on vent with tracheostomy GI: Nontender/Nondistended. MSK: Swelling of bilateral upper extremities Skin: Warm to touch, Dry. No rashes or lesions. Neuro: GCS8T, Awake, occasionally follows commands Objective Labs 05/04/24 06:03 05/04/24 06:03 Labs: Laboratory Results - last 24 hr 05/02/24 05/02/24 05/02/24 14:15 14:15 14:15 WBC Cancelled 9.3 RBC Cancelled 3.90 L Hgb Cancelled Hct MCV MCH MCHC RDW Std Deviation Plt Count Neut % (Auto) Lymph % (Auto) [place] % (Auto) Eos % (Auto) Baso % (Auto) Neut # (Auto) Lymph # (Auto) [place] # (Auto) Eos # (Auto) Baso # (Auto) Immature Gran # (Auto) Absolute Nucleated RBC Immature Gran % Nucleated RBC % Puncture Site ABG pH ABG pCO2 ABG pO2 ABG HCO3 ABG O2 Saturation ABG Base Excess FiO2 Sodium Potassium Chloride Carbon Dioxide Anion Gap BUN Creatinine Estim Creat Clear Calc eGFR BUN/Creatinine Ratio Glucose Calculated Osmolality Calcium Corrected Calcium Phosphorus Magnesium Total Bilirubin AST ALT Alkaline Phosphatase Total Protein Albumin Globulin Albumin/Globulin Ratio 05/02/24 05/02/24 05/02/24 14:15 14:15 14:15 WBC RBC Hgb 10.7 L Hct Cancelled 35.1 L MCV Cancelled 90 MCH Cancelled MCHC RDW Std Deviation Plt Count Neut % (Auto) Lymph % (Auto) [place] % (Auto) Eos % (Auto) Baso % (Auto) Neut # (Auto) Lymph # (Auto) [place] # (Auto) Eos # (Auto) Baso # (Auto) Immature Gran # (Auto) Absolute Nucleated RBC Immature Gran % Nucleated RBC % Puncture Site ABG pH ABG pCO2 ABG pO2 ABG HCO3 ABG O2 Saturation ABG Base Excess FiO2 Sodium Potassium Chloride Carbon Dioxide Anion Gap BUN Creatinine Estim Creat Clear Calc eGFR BUN/Creatinine Ratio Glucose Calculated Osmolality Calcium Corrected Calcium Phosphorus Magnesium Total Bilirubin AST ALT Alkaline Phosphatase Total Protein Albumin Globulin Albumin/Globulin Ratio 05/02/24 05/02/24 05/02/24 14:15 14:15 14:15 WBC RBC Hgb Hct MCV MCH 27.4 MCHC Cancelled 30.5 L RDW Std Deviation Cancelled 58.4 H Plt Count Cancelled Neut % (Auto) Lymph % (Auto) [place] % (Auto) Eos % (Auto) Baso % (Auto) Neut # (Auto) Lymph # (Auto) [place] # (Auto) Eos # (Auto) Baso # (Auto) Immature Gran # (Auto) Absolute Nucleated RBC Immature Gran % Nucleated RBC % Puncture Site ABG pH ABG pCO2 ABG pO2 ABG HCO3 ABG O2 Saturation ABG Base Excess FiO2 Sodium Potassium Chloride Carbon Dioxide Anion Gap BUN Creatinine Estim Creat Clear Calc eGFR BUN/Creatinine Ratio Glucose Calculated Osmolality Calcium Corrected Calcium Phosphorus Magnesium Total Bilirubin AST ALT Alkaline Phosphatase Total Protein Albumin Globulin Albumin/Globulin Ratio 05/02/24 05/02/24 05/02/24 14:15 14:15 14:15 WBC RBC Hgb Hct MCV MCH MCHC RDW Std Deviation Plt Count 148 D Neut % (Auto) Cancelled 84 H Lymph % (Auto) Cancelled 9 L [place] % (Auto) Cancelled Eos % (Auto) Baso % (Auto) Neut # (Auto) Lymph # (Auto) [place] # (Auto) Eos # (Auto) Baso # (Auto) Immature Gran # (Auto) Absolute Nucleated RBC Immature Gran % Nucleated RBC % Puncture Site ABG pH ABG pCO2 ABG pO2 ABG HCO3 ABG O2 Saturation ABG Base Excess FiO2 Sodium Potassium Chloride Carbon Dioxide Anion Gap BUN Creatinine Estim Creat Clear Calc eGFR BUN/Creatinine Ratio Glucose Calculated Osmolality Calcium Corrected Calcium Phosphorus Magnesium Total Bilirubin AST ALT Alkaline Phosphatase Total Protein Albumin Globulin Albumin/Globulin Ratio 05/02/24 05/02/24 05/02/24 14:15 14:15 14:15 WBC RBC Hgb Hct MCV MCH MCHC RDW Std Deviation Plt Count Neut % (Auto) Lymph % (Auto) [place] % (Auto) 6 Eos % (Auto) Cancelled 0 Baso % (Auto) Cancelled 0 Neut # (Auto) Cancelled Lymph # (Auto) [place] # (Auto) Eos # (Auto) Baso # (Auto) Immature Gran # (Auto) Absolute Nucleated RBC Immature Gran % Nucleated RBC % Puncture Site ABG pH ABG pCO2 ABG pO2 ABG HCO3 ABG O2 Saturation ABG Base Excess FiO2 Sodium Potassium Chloride Carbon Dioxide Anion Gap BUN Creatinine Estim Creat Clear Calc eGFR BUN/Creatinine Ratio Glucose Calculated Osmolality Calcium Corrected Calcium Phosphorus Magnesium Total Bilirubin AST ALT Alkaline Phosphatase Total Protein Albumin Globulin Albumin/Globulin Ratio 05/02/24 05/02/24 05/02/24 14:15 14:15 14:15 WBC RBC Hgb Hct MCV MCH MCHC RDW Std Deviation Plt Count Neut % (Auto) Lymph % (Auto) [place] % (Auto) Eos % (Auto) Baso % (Auto) Neut # (Auto) 7.8 H Lymph # (Auto) Cancelled 0.8 L [place] # (Auto) Cancelled 0.6 Eos # (Auto) Cancelled Baso # (Auto) Immature Gran # (Auto) Absolute Nucleated RBC Immature Gran % Nucleated RBC % Puncture Site ABG pH ABG pCO2 ABG pO2 ABG HCO3 ABG O2 Saturation ABG Base Excess FiO2 Sodium Potassium Chloride Carbon Dioxide Anion Gap BUN Creatinine Estim Creat Clear Calc eGFR BUN/Creatinine Ratio Glucose Calculated Osmolality Calcium Corrected Calcium Phosphorus Magnesium Total Bilirubin AST ALT Alkaline Phosphatase Total Protein Albumin Globulin Albumin/Globulin Ratio 05/02/24 05/02/24 05/02/24 14:15 14:15 14:15 WBC RBC Hgb Hct MCV MCH MCHC RDW Std Deviation Plt Count Neut % (Auto) Lymph % (Auto) [place] % (Auto) Eos % (Auto) Baso % (Auto) Neut # (Auto) Lymph # (Auto) [place] # (Auto) Eos # (Auto) 0.0 Baso # (Auto) Cancelled 0.0 Immature Gran # (Auto) Cancelled 0.08 H Absolute Nucleated RBC Cancelled Immature Gran % Nucleated RBC % Puncture Site ABG pH ABG pCO2 ABG pO2 ABG HCO3 ABG O2 Saturation ABG Base Excess FiO2 Sodium Potassium Chloride Carbon Dioxide Anion Gap BUN Creatinine Estim Creat Clear Calc eGFR BUN/Creatinine Ratio Glucose Calculated Osmolality Calcium Corrected Calcium Phosphorus Magnesium Total Bilirubin AST ALT Alkaline Phosphatase Total Protein Albumin Globulin Albumin/Globulin Ratio 05/02/24 05/02/24 05/02/24 14:15 14:15 14:15 WBC RBC Hgb Hct MCV MCH MCHC RDW Std Deviation Plt Count Neut % (Auto) Lymph % (Auto) [place] % (Auto) Eos % (Auto) Baso % (Auto) Neut # (Auto) Lymph # (Auto) [place] # (Auto) Eos # (Auto) Baso # (Auto) Immature Gran # (Auto) Absolute Nucleated RBC 0.10 H Immature Gran % Cancelled 1 H Nucleated RBC % Cancelled 1 H Puncture Site ABG pH ABG pCO2 ABG pO2 ABG HCO3 ABG O2 Saturation ABG Base Excess FiO2 Sodium Potassium 3.1 L D Chloride Carbon Dioxide Anion Gap BUN Creatinine Estim Creat Clear Calc eGFR BUN/Creatinine Ratio Glucose Calculated Osmolality Calcium Corrected Calcium Phosphorus Magnesium Total Bilirubin AST ALT Alkaline Phosphatase Total Protein Albumin Globulin Albumin/Globulin Ratio 05/02/24 05/03/24 14:16 06:04 WBC 11.4 H RBC 3.16 L Hgb 8.8 L Hct 27.9 L MCV 88 MCH 27.8 MCHC 31.5 RDW Std Deviation 57.2 H Plt Count 135 L Neut % (Auto) 89 H Lymph % (Auto) 5 L [place] % (Auto) 6 Eos % (Auto) 0 Baso % (Auto) 0 Neut # (Auto) 10.1 H Lymph # (Auto) 0.6 L [place] # (Auto) 0.6 Eos # (Auto) 0.0 Baso # (Auto) 0.0 Immature Gran # (Auto) 0.04 H Absolute Nucleated RBC 0.04 H Immature Gran % 0 Nucleated RBC % 0 Puncture Site Right Radial ABG pH 7.31 L ABG pCO2 64 H ABG pO2 215 H ABG HCO3 32 H ABG O2 Saturation 101 H ABG Base Excess 5 H FiO2 100 Sodium 144 Potassium 2.4 L* D Chloride 102 Carbon Dioxide 35.9 H Anion Gap 6 L BUN 6 L Creatinine 0.5 L Estim Creat Clear Calc 108.2 eGFR > 60 BUN/Creatinine Ratio 12 Glucose 136 H Calculated Osmolality 286 Calcium 7.8 L Corrected Calcium 8.8 Phosphorus 0.9 L* Magnesium 1.6 Total Bilirubin 0.4 AST 14 ALT 17 Alkaline Phosphatase 66 D Total Protein 5.3 L Albumin 2.7 L D Globulin 2.6 Albumin/Globulin Ratio 1.0 L ABG Interpretation ABG results: 04/28/24 05/02/24 10:51 14:16 ABG pH 7.31 L ABG pCO2 64 H ABG pO2 215 H ABG HCO3 32 H ABG O2 Saturation 101 H ABG Base Excess 5 H VBG pH 7.61 VBG pCO2 30 L VBG pO2 80 H VBG Base Excess 7 H Quality Measures Quality Measures VTE prophylaxis (SCDs) Advance care planning discussed with:: other Assessment & Plan Assessment Current Active Medications: Generic Name Dose Route Start Last Admin Trade Name Freq PRN Reason Stop Dose Admin Acetaminophen 650 mg 04/28/24 11:24 Acetaminophen 325 Mg Tablet PO 05/28/24 11:23 Q6H PRN Fever >101.5 Acetaminophen 650 mg 04/28/24 11:24 Acetaminophen 325 Mg Tablet PO 05/28/24 11:23 Q6H PRN PAIN SCALE 1-3 (mild Albuterol/Ipratropium 3 ml 04/28/24 11:36 05/02/24 13:53 Albuterol/Ipratropium (Duoneb) Rt Aria 3 Ml Nebu INH 05/28/24 12:59 3 ml Q6HRRT PRN Administration wheezing Amiodarone HCl 100 mg 04/28/24 13:45 05/03/24 08:18 Amiodarone Hcl 200 Mg Tablet GT 05/28/24 13:44 100 mg QDAY MARTINEZ Administration Bisacodyl 10 mg 04/28/24 13:42 Bisacodyl 10 Mg Supp AL 05/28/24 13:41 QDAY PRN CONSTIPATION Protocol Carbamide Peroxide 5 drop 04/28/24 14:00 05/03/24 08:19 Carbamide Peroxide Otic Aria 15 Ml Btl BOTH EARS 05/28/24 13:59 5 drop BID MARTINEZ Administration Clonazepam 0.5 mg 04/28/24 14:00 05/03/24 08:20 Clonazepam 0.5 Mg Tablet GT 05/03/24 13:59 0.5 mg BID MARTINEZ Administration Dextrose 25 ml 04/30/24 14:46 05/02/24 05:30 Dextrose 50%-Water Inj 50 Ml Syringe IV 05/30/24 14:45 25 ml Q15MIN PRN Administration BG 50-70 responsive npo pt Dextrose 50 ml 04/30/24 14:46 Dextrose 50%-Water Inj 50 Ml Syringe IV 05/30/24 14:45 Q15MIN PRN BG <50 OR BG <70 & pt unresponsive Glucagon 1 mg 04/30/24 14:46 Glucagon Inj 1 Mg Vial IM Q15MIN PRN BG <70, and no IV access Glycopyrrolate 1 mg 04/28/24 14:00 05/03/24 08:18 Glycopyrrolate 1 Mg Tablet GT 05/28/24 13:59 1 mg QDAY MARTINEZ Administration Guaifenesin 300 mg 04/28/24 13:42 Guaifenesin Syrup 200 Mg/10 Ml Udc GT 05/28/24 13:41 Q6H PRN COUGH Protocol Ceftriaxone Sodium/Dextrose 50 mls @ 100 mls/hr 04/30/24 10:00 05/03/24 08:20 Rocephin/D5w 1gm Iv Premix IV 05/07/24 09:59 100 mls/hr QDAY MARTINEZ Administration Potassium Chloride 10 meq in 100 mls @ 100 mls/hr 05/03/24 07:22 05/03/24 09:55 Kcl Ivpb IV 05/03/24 11:21 100 mls/hr Q1H MARTINEZ Administration Potassium Phosphate 22.5 mmol/ 507.5 mls @ 82.778 mls/hr 05/03/24 12:00 Sodium Chloride IV 05/03/24 18:07 X1 ONE Magnesium Sulfate 4 gm in 50 mls @ 12.5 mls/hr 05/03/24 07:23 05/03/24 08:19 Magnesium Sulfate Ivpb IV 05/03/24 11:22 12.5 mls/hr X1 ONE Administration Lactated Ringer's 1,000 mls @ 999 mls/hr 05/03/24 09:39 05/03/24 09:44 Lactated Ringers IV 05/03/24 10:39 999 mls/hr .Q1H1M ONE Administration Sodium Chloride 1,000 mls @ 999 mls/hr 05/03/24 09:42 Ns IV 06/02/24 09:41 .Q1H1M MARTINEZ Levetiracetam 750 mg 04/28/24 14:00 05/03/24 08:18 Levetiracetam Liqd 500 Mg/5 Ml [facility] 05/28/24 13:59 750 mg BID MARTINEZ Administration Lorazepam 2 mg 04/28/24 13:47 Lorazepam 2 Mg/Ml Vial IVP 05/03/24 13:46 Q8HR PRN breakthrough seizures Magnesium Hydroxide 30 ml 04/28/24 13:47 Milk Of Magnesia Susp 30 Ml [facility] 05/28/24 13:46 Q6H PRN CONSTIPATION Protocol Ondansetron HCl 4 mg 04/28/24 11:24 Ondansetron Inj 2 Mg/Ml Inj 2 Ml IV 05/28/24 11:23 Q6H PRN NAUSEA OR VOMITING Protocol Pantoprazole Sodium 40 mg 04/28/24 21:00 05/03/24 08:20 Pantoprazole Inj 40 Mg Vial IVP 05/28/24 20:59 40 mg Q12HR MARTINEZ Administration Polyethylene Glycol 17 gm 04/28/24 13:42 Polyethylene Glycol 17 Gm Packet PO 05/28/24 13:41 QDAY PRN CONSTIPATION Protocol Potassium Phos/Sodium Phos 1 packet 05/03/24 10:00 05/03/24 08:54 [facility]aph,[facility] Mbdb 1 Packet (1.5 Gm) GT 06/02/24 09:59 1 packet BID MARTINEZ Administration Plan Summary: This patient is a 69-year-old female with past medical history of seizures, anoxic brain injury with persistent vegetative state chronic respiratory failure status post tracheostomy with ventilator dependent and G- tube placement, history of hypertension, history of A-fib presented from subacute with low hemoglobin level. Per RN, staff at the subacute reported the patient's hemoglobin was significantly low at 3.6 and hematocrit 12.4. Patient was sent to ED for further evaluation. Patient is nonverbal at baseline therefore majority history was taken from patient's chart. In the ED, patient's vitals showed blood pressure 101/63, tachycardia, tachypnea and mild temp 99. Patient is ventilating 100% on mechanical ventilator. Patient did had EGD on April 08 which showed gastritis pattern.EGD showed esophagitis, gastritis with erythema. #Acute severe blood loss anemia due to GI bleed #Hypotension, improving #Esophagitis with gastritis pattern per EGD, 04/08/2024 -DDx GI bleed vs aspirin use -Patient presented from subacute with blood loss Patient is nonverbal at baseline. ?On pantoprazole 40 mg IV twice daily -Initial hemoglobin 3.6 .Lactic acidosis 2.9. Urine was turbid with WBC 30+ bacteria 4+ on admission. -EGD showed esophagitis with gastritis present on April 08, 2024. -4 units PRBC transfused in total Plan: ?Status post colonoscopy, reached out to Dr. Del Cid, waiting to hear back about results ?Resume tube feeds -Prbc if Hgb remains below 7 #Electrolyte disturbance #Hypokalemia #Hypophosphatemia Labs continue to remain low. Possible refeeding syndrome Plan ?Dietitian consulted ?Tube feeding resumed ?Replete electrolytes as needed # Klebsiella UTI -Patient's UA showed WBC 30+ bacteria with turbidity. Plan: -Continue ceftriaxone until 05/07 -Urine culture grew Klebsiella sensitive to ceftriaxone resistant to Zosyn #Fluid overload #Bilateral upper extremity swelling -Most likely related to fluids -Patient with swollen upper extremity Plan: ?Monitor I's and O's #Acute on chronic hypoxic respiratory failure 2/2 Healthcare acquired pneumonia s/p trach tube #Persistent vegetative state post Anoxic brain injury #Quadriplegic #Metabolic alkalosis: Resolved #Leukocytosis -Imaging: Chest x-ray showed left base pneumonia. -Previous ET sec grew Klebsiella -Zosyn discontinued Plan: -Continuing IV ceftriaxone -Cont Ventilator #Lactic acidosis Type A, resolved -related to hypotension vs blood loss Plan: -IV fluids and blood transfusion given #Leukocytosis: -wbc downtrending Plan: -Continue IV ceftriaxone #Thrombocytopenia -Likely related to blood loss Plan: -SCDs for DVT prophylaxis -Bleeding precautions #Hx of seizures #Hx Atrial Fib #Hx of GERD and constipation #S/P Peg tube placement -EKG showed sinus tacy -Chadsvasc score 1 Plan: -Resume home meds including keppra,clonazepam and amiodarone -Seizure precautions -Stopped aspirin due to GI bleed Health Maintanance: Diet: PEG tube GI prophylaxis:Protonix q12h DVT prophylaxis: SCDs Code status: DNR/DNI Disposition: Patient is admitted for acute blood loss anemia likely GI bleed. Dr. Del Cid has been consulted for further evaluation. Colonoscopy pending. - Patient was seen and discussed with attending physician, Dr. Alisa Alejandro, PGY 1 Attending Provider Attestation/Addendum I have examined the patient, reviewed labs and imaging findings, discussed the case with the resident(s), and reviewed entered orders. I agree with the plan of care as outlined in this note, with these additional summaries/recommendations: Patient seen at bedside. Rapid response was called for hypotension today and patient was given fluid bolus with MAP maintaining about 65, lactic acid WNL. Patient is s/p colonoscopy. We will continue to monitor blood pressure and hemoglobin closely. Patient is trached and pegged and no history can be obtained. Patient resumed on tube feeds and free water flushes. Severe hypokalemia & hypophosphatemia present and most likely secondary to holding tube feeds for GoLytely prep. Low suspicion for refeeding syndrome but will monitor for now. Case management and neurology working on conservatorship. Continue Rocephin for urinary tract infection. Urine culture grew Klebsiella pneumonia and blood culture showed no growth at 48 hours. Continue patient's home antiepileptics for seizure disorder. Continue amiodarone for history of atrial fibrillation. Repeat hematology and chemistry panel in AM. Dr. Cuellar
--- NOTE | 2024-05-03 10:21 | PC.SS ---
Addendum entered by Tiffany Bro 05/04/24 10:38: SS provided nurse, Jose with [facility] from [facility] contact Number. Patient will discharge back to Subacute today. Addendum entered by Tiffany Bro 05/03/24 15:49: SS follow up note; SS contacted [employer] to check status on locating family, APS informed SS they are not able to provide any further information. Original Note: SS contacted public guardian and requested for [employer] forms. Jaida faxed forms to SS. contacted Zarina to inform her that SS had requested forms, however Zarina informed SS they had filled out forms, however needed Dr. Marinelli to sign his portion. SS will stand by for further needs.
[2024-05-03 11:40] LABS: Lactate (Lactic Acid) 1.4 mMol/L (0.4-2.0)
[2024-05-03 11:43] LABS: Basophils % (Auto) 0 % (0-2.5); Eosinophils % (Auto) 0 % (0-10); Immature Granulocytes % (Auto) 0 % (0-0); Mean Corpuscular Volume 89 fL (80-100); Nucleated Red Blood Cell % 0 /100 WBC (0)
[2024-05-03 11:45] LABS: Hematocrit 27.2 % (36.0-46.0); Immature Granulocytes Auto 0.02 Thou/mm3 (0.00-0.00); Lymphocytes # (Auto) 0.8 Thou/mm3 (1.0-4.8); Lymphocytes % (Auto) 9 % (10-50); Mean Corpuscular HGB Conc 31.6 g/dl (31.0-37.0); Mean Corpuscular Hemoglobin 28.2 pg (25.0-35.0); Monocytes # (Auto) 0.8 Thou/mm3 (0.0-0.8); Monocytes % (Auto) 9 % (0-12); Neutrophils # (Auto) 7.4 Thou/mm3 (1.8-7.7); Neutrophils % (Auto) 83 % (37-80); Nucleated Red Blood Cell # 0.02 Thou/mm3 (0.00-0.00); Platelet Count 127 Thou/mm3 (140-440); RDW Standard Deviation 57.9 fL (36.4-46.3); Red Blood Count 3.05 Miln/mm3 (4.00-5.20)
[2024-05-03 11:46] LABS: Hemoglobin 8.6 g/dL (12.0-16.0)
[2024-05-03] MEDS: THIAMINE INJ 100 MG/ML VIAL 2 ML 250 MG IV (11:49)
[2024-05-03 12:11] LABS: Potassium 3.6 mMol/L (3.4-5.1)
[2024-05-03] MEDS: POTASSIUM PHOS 22.5 MMOL in SODIUM CHLORIDE 0.9% 500 ML 500 ML 82.778 MMOL IV (14:07)
--- NOTE | 2024-05-03 15:58 | PD.RESEVENT ---
Documentation for date of: 05/03/24 Event Note Event Note: Rapid response was called at 9 AM for hypotension with a blood pressure of 76/40s. Patient was placed in Trendelenburg with immediate improvement of blood pressure to the high 90s systolic. She was bolused 1 L normal saline alert and lactic acid was ordered. Repeat lab was within normal limits. After bolus blood pressure improved to the 130 systolic.
[2024-05-03 19:18] LABS: Anion Gap 5 (7-16); BUN/Creatinine Ratio 14 Ratio (12-20); Blood Urea Nitrogen 7 mg/dL (9-23); Chloride 102 mMol/L (98-107); Creatinine (Component) 0.5 mg/dL (0.6-1.3); Estimated Creatinine Clearance 108.2 mL/min (>60); Glucose 138 mg/dL (74-106); Osmolality,Calculated 281 (275-295); Phosphorous 2.1 mg/dL (2.4-5.1); Potassium 3.6 mMol/L (3.4-5.1); Sodium 141 mMol/L (136-145); eGFR > 60 See Note
--- NOTE | 2024-05-03 21:03 | PD.NEUROPROG ---
Documentation for date of: 05/03/24 Subjective Subjective Interval history: Patient was seen in telemetry today at the bedside. No changes reported. Exam - Neurology Vital Signs Temp Pulse Resp BP Pulse Ox O2 Del Method O2 Flow Rate 97.1 F 60 24 H 119/58 L 99 Mechanical Ventilation 40 05/03/24 20:00 05/03/24 20:00 05/03/24 20:00 05/03/24 20:00 05/03/24 20:00 05/03/24 20:00 05/03/24 20:00 FiO2 50 05/03/24 20:00 Narrative Exam GENERAL APPEARANCE: Well-developed obese built white female in no acute distress. HEENT: Normocephalic, atraumatic, pupils: Equal reacting to light NECK: Supple, no JVD or bruits. CARDIOVASULAR: Heart: S1, S2 heard, regular without S3-S4 or murmur no rubs or gallops. LUNGS/CHEST: Clear to auscultation bilaterally. No rails, rhonchi, or wheezing. Normal inspection. ABDOMEN: Soft, nontender, with normal bowel sounds. No pulsatile masses. No rebound, rigidity, or guarding. Normal inspection and palpation. EXTREMITIES: Normal inspection and palpation. No edema, clubbing or cyanosis. SKIN: Warm and dry without rashes. Normal inspection. MUSCULOSKELETAL: No cervical, thoracic, lumbar or midline bony tenderness. Normal inspection. NEURO: Continues to remain in persistent vegetative state PSYCHIATRIC: Not able to assess FRom PVS Objective Labs 05/03/24 11:13 05/03/24 18:32 Labs: Laboratory Results - last 24 hr 05/03/24 05/03/24 05/03/24 06:04 11:13 18:32 WBC 11.4 H 9.0 RBC 3.16 L 3.05 L Hgb 8.8 L 8.6 L Hct 27.9 L 27.2 L MCV 88 89 MCH 27.8 28.2 MCHC 31.5 31.6 RDW Std Deviation 57.2 H 57.9 H Plt Count 135 L 127 L Neut % (Auto) 89 H 83 H Lymph % (Auto) 5 L 9 L [place] % (Auto) 6 9 Eos % (Auto) 0 0 Baso % (Auto) 0 0 Neut # (Auto) 10.1 H 7.4 Lymph # (Auto) 0.6 L 0.8 L [place] # (Auto) 0.6 0.8 Eos # (Auto) 0.0 0.0 Baso # (Auto) 0.0 0.0 Immature Gran # (Auto) 0.04 H 0.02 H Absolute Nucleated RBC 0.04 H 0.02 H Immature Gran % 0 0 Nucleated RBC % 0 0 Sodium 144 141 Potassium 2.4 L* D 3.6 D 3.6 Chloride 102 102 Carbon Dioxide 35.9 H 34.0 H Anion Gap 6 L 5 L BUN 6 L 7 L Creatinine 0.5 L 0.5 L Estim Creat Clear Calc 108.2 108.2 eGFR > 60 > 60 BUN/Creatinine Ratio 12 14 Glucose 136 H 138 H Calculated Osmolality 286 281 Lactic Acid 1.4 Calcium 7.8 L 8.0 L Corrected Calcium 8.8 Phosphorus 0.9 L* 1.0 L 2.1 L Magnesium 1.6 Total Bilirubin 0.4 AST 14 ALT 17 Alkaline Phosphatase 66 D Total Protein 5.3 L Albumin 2.7 L D Globulin 2.6 Albumin/Globulin Ratio 1.0 L ABG Interpretation ABG results: 04/28/24 05/02/24 10:51 14:16 ABG pH 7.31 L ABG pCO2 64 H ABG pO2 215 H ABG HCO3 32 H ABG O2 Saturation 101 H ABG Base Excess 5 H VBG pH 7.61 VBG pCO2 30 L VBG pO2 80 H VBG Base Excess 7 H Assessment & Plan Assessment and plan (1) Anoxic brain damage, not elsewhere classified: Status: Chronic Assessment and plan: Unchanged from admission Continue with the Keppra, no seizures reported after admission. (2) Severe anemia: Status: Acute Assessment and plan: colonoscopy showed diverticulosis. (3) Tracheostomy dependent: Status: Chronic Assessment and plan: Noted intermittent drop in oxygen saturation, being managed appropriately by primary team (4) Heart disease, hypertensive: Status: Chronic Assessment and plan: Continue with amiodarone, Lasix and potassium
--- NOTE | 2024-05-03 21:04 | ESPR_ITS ---
Documentation for date of: 05/03/24 Subjective Subjective Interval history: Patient evaluated hemoglobin hematocrit 8.6 and 27.2 Exam Vital Signs Temp Pulse Resp BP Pulse Ox O2 Del Method O2 Flow Rate 97.1 F 60 24 H 119/58 L 99 Mechanical Ventilation 40 05/03/24 20:00 05/03/24 20:00 05/03/24 20:00 05/03/24 20:00 05/03/24 20:00 05/03/24 20:00 05/03/24 20:00 FiO2 50 05/03/24 20:00 Objective Labs 05/03/24 11:13 05/03/24 18:32 Labs: Laboratory Results - last 24 hr 05/03/24 05/03/24 05/03/24 06:04 11:13 18:32 WBC 11.4 H 9.0 RBC 3.16 L 3.05 L Hgb 8.8 L 8.6 L Hct 27.9 L 27.2 L MCV 88 89 MCH 27.8 28.2 MCHC 31.5 31.6 RDW Std Deviation 57.2 H 57.9 H Plt Count 135 L 127 L Neut % (Auto) 89 H 83 H Lymph % (Auto) 5 L 9 L Glasscock % (Auto) 6 9 Eos % (Auto) 0 0 Baso % (Auto) 0 0 Neut # (Auto) 10.1 H 7.4 Lymph # (Auto) 0.6 L 0.8 L Glasscock # (Auto) 0.6 0.8 Eos # (Auto) 0.0 0.0 Baso # (Auto) 0.0 0.0 Immature Gran # (Auto) 0.04 H 0.02 H Absolute Nucleated RBC 0.04 H 0.02 H Immature Gran % 0 0 Nucleated RBC % 0 0 Sodium 144 141 Potassium 2.4 L* D 3.6 D 3.6 Chloride 102 102 Carbon Dioxide 35.9 H 34.0 H Anion Gap 6 L 5 L BUN 6 L 7 L Creatinine 0.5 L 0.5 L Estim Creat Clear Calc 108.2 108.2 eGFR > 60 > 60 BUN/Creatinine Ratio 12 14 Glucose 136 H 138 H Calculated Osmolality 286 281 Lactic Acid 1.4 Calcium 7.8 L 8.0 L Corrected Calcium 8.8 Phosphorus 0.9 L* 1.0 L 2.1 L Magnesium 1.6 Total Bilirubin 0.4 AST 14 ALT 17 Alkaline Phosphatase 66 D Total Protein 5.3 L Albumin 2.7 L D Globulin 2.6 Albumin/Globulin Ratio 1.0 L Impressions Impression: .# Anemia of chronic disease patient component includes possible acute blood loss anemia Colonoscopy shows no malignancy diverticulosis colon Continue current management ABG Interpretation ABG results: 04/28/24 05/02/24 10:51 14:16 ABG pH 7.31 L ABG pCO2 64 H ABG pO2 215 H ABG HCO3 32 H ABG O2 Saturation 101 H ABG Base Excess 5 H VBG pH 7.61 VBG pCO2 30 L VBG pO2 80 H VBG Base Excess 7 H Assessment & Plan A&P Narrative # Anemia blood loss requiring blood transfusion # Hemoccult positive stool # Anoxic brain injury requiring tracheostomy and mechanical ventilation and gastrostomy tube placement Plan GoLytely prep via the G-tube Once cleared we will schedule the colonoscopy with possible therapeutic intervention under intravenous moderate sedation Agree with the blood transfusion Thank you very much for the opportunity to participate in the care of this patient Time Spent With Patient Time: Total time spent is greater than 50% in coordination of care (as documented) at patient's floor/unit and/or counseling patient:
[2024-05-04] VITALS (10 sets, daily range): BP systolic 132–150; BP diastolic 66–98; PULSE 63–99; RESP 24–100; TEMP 36.1–36.3; O2SAT 97–100
[2024-05-04 06:30] LABS: Basophils % (Auto) 0 % (0-2.5); Eosinophils # (Auto) 0.3 Thou/mm3 (0.0-0.5); Eosinophils % (Auto) 4 % (0-10); Hematocrit 26.2 % (36.0-46.0); Immature Granulocytes % (Auto) 1 % (0-0); Immature Granulocytes Auto 0.04 Thou/mm3 (0.00-0.00); Lymphocytes # (Auto) 0.5 Thou/mm3 (1.0-4.8); Lymphocytes % (Auto) 8 % (10-50); Mean Corpuscular HGB Conc 30.9 g/dl (31.0-37.0); Mean Corpuscular Hemoglobin 27.6 pg (25.0-35.0); Mean Corpuscular Volume 89 fL (80-100); Monocytes # (Auto) 0.6 Thou/mm3 (0.0-0.8); Monocytes % (Auto) 8 % (0-12); Neutrophils # (Auto) 5.6 Thou/mm3 (1.8-7.7); Neutrophils % (Auto) 80 % (37-80); Nucleated Red Blood Cell # 0.02 Thou/mm3 (0.00-0.00); Nucleated Red Blood Cell % 0 /100 WBC (0); Platelet Count 136 Thou/mm3 (140-440); RDW Standard Deviation 60.1 fL (36.4-46.3); Red Blood Count 2.93 Miln/mm3 (4.00-5.20)
[2024-05-04 07:13] LABS: Hemoglobin 8.1 g/dL (12.0-16.0)
[2024-05-04 07:23] LABS: Alanine Aminotransferase 12 U/L (10-49); Albumin, Serum 2.7 gm/dL (3.4-4.8); Alkaline Phosphatase 65 U/L (46-116); Anion Gap 4 (7-16); Aspartate Amino Transferase 11 U/L (0-34); BUN/Creatinine Ratio 16 Ratio (12-20); Bilirubin,Total 0.3 mg/dL (0.3-1.2); Blood Urea Nitrogen 8 mg/dL (9-23); Calcium 8.2 mg/dL (8.3-10.6); Calcium (Corrected) 9.2 mg/dL (8.5-10.1); Carbon Dioxide 37.4 mMol/L (20.0-31.0); Chloride 100 mMol/L (98-107); Creatinine (Component) 0.5 mg/dL (0.6-1.3); Estimated Creatinine Clearance 108.2 mL/min (>60); Globulin 2.6 gm/dL (2.3-3.5); Glucose 137 mg/dL (74-106); Magnesium 1.9 mg/dL (1.6-2.6); Osmolality,Calculated 281 (275-295); Phosphorous 1.9 mg/dL (2.4-5.1); Potassium 3.6 mMol/L (3.4-5.1); Sodium 141 mMol/L (136-145); Total Protein 5.3 gm/dL (5.7-8.2); eGFR > 60 See Note
[2024-05-04] MEDS: levETIRAcetam LIQD 500 MG/5 ML UDC 750 MG GT (08:21)
[2024-05-04] MEDS: CARBAMIDE PEROXIDE OTIC SOL 15 ML BTL 5 DROP BOTH EARS (08:21)
[2024-05-04] MEDS: PANTOPRAZOLE INJ 40 MG VIAL IVP (08:21)
[2024-05-04] MEDS: cefTRIAXone/D5w 1gm IV premix 50 ML IV (08:22)
[2024-05-04] MEDS: AMIODARONE HCL 200 MG TABLET 100 MG GT (08:22)
[2024-05-04] MEDS: NAPH,KPH MBDB 1 PACKET (1.5 GM) GT (08:22)
[2024-05-04] MEDS: GLYCOPYRROLATE 1 MG TABLET GT (08:22)
--- NOTE | 2024-05-04 08:51 | PC.NURSE ---
[facility] downtime occurred on 05-04-24 from 0100 to 0700
[2024-05-04] MEDS: Magnesium Sulfate 2 GM Ivpb 2 GM/50 ML BAG IV (09:09)
[2024-05-04] MEDS: POTASSIUM PHOS 22.5 MMOL in SODIUM CHLORIDE 0.9% 500 ML 500 ML 82.778 MMOL IV (09:09)
--- NOTE | 2024-05-04 09:35 | XR_ITS ---
Examination: AP chest single view Technique one AP portable semiupright chest single view Exam date and time: April 26, 2024 0959 hours Comparison May 02, 2024 INDICATIONS: Inpatient with tachypnea gastrointestinal bleeding anemia FINDINGS: Worsening bilateral pneumonia Enlarged cardiac contour with prominent vascular congestion Prominent osteopenia Tracheostomy tube tip 6.8 cm above kunal IMPRESSION: Heart failure pattern again noted Worsening bilateral pneumonia
--- NOTE | 2024-05-04 09:44 | ESDS_ITS ---
<Statement entered by Candido Mann MD - 05/04/24 10:14> I saw and examined the patient, and I agree with current management stated by Dr Javon DO,PGY1. Plan of care was discussed with the attending physician and resident physician. Disclaimer: Despite multiple revisions, due to the dictation software being used, the document bellow may not be free of grammatical errors including phonetic/typographic errors. However, this does not deter from our commitment to providing health care in the patient's best interest in mind. Dr. Johnathan MD, PGY 2 Planned Discharge Date 05/04/24 DS: Providers Provider Date of admission: 04/28/24 11:23 Primary care physician: Physician No Primary/Family Admitting Provider: Vj Cuellar MD Attending Provider on Admission: Vj Cuellar MD Consults: 04/28/24 11:27 Consult to Gastroenterology Stat Comment: Consulting Provider: Beth Del Cid Consult to Gastroenterology Stat Comment: Consulting Provider: Beth Del Cid 04/28/24 11:40 Referral Registered Dietitian Routine Comment: 04/28/24 16:19 Referral Respiratory Therapy Routine Comment: Chronic trach patient 04/30/24 11:01 Consult to Neurology / Tele-Neurology Routine Comment: Consulting Provider: Myles Leal Attending Provider on DC: Vj Cuellar MD Discharging Provider: Jeremy Alejandro DO DS: Diagnosis Problem List Completed Was Problem List Reviewed/Reconciled?: Yes Hospital Course Hospital Course Hospital course: Hospital course: This patient is a 69-year-old female with past medical history of seizures, anoxic brain injury with persistent vegetative state chronic respiratory failure status post tracheostomy with ventilator dependent and G-tube placement, history of hypertension, history of A-fib presented from subacute with low hemoglobin level concerning for GI bleed. Per RN, staff at the subacute reported the patient's hemoglobin was significantly low at 3.6 and hematocrit 12.4. Patient was sent to ED for further evaluation. Patient is nonverbal at baseline therefore majority history was taken from patient's chart. Patient's home aspirin was held and she was started on pantoprazole 40mg twice daily. Throughout her admission she required 4 units PRBCs. EGD showed esophagitis, gastritis with erythema. Colonoscopy, results not documented. We reached out to Dr. Del Cid multiple times with no response. Patient's hemoglobin has remained stable the last few days once aspirin was removed. GI bleed most likely secondary to gastritis in the setting of aspirin use. After colonoscopy patient developed transient electrolyte disturbance most likely in the setting of 5 days ago likely to prep for her colonoscopy. Electrolytes were replenished and eventually normalized. She had 1 episode of SORTER/ASSAY TECH called for transient hypotension which was resolved immediately with fluid bolus. Patient was also started on ceftriaxone for UTI. At the time of discharge patient vitals and hemoglobin were stable, she was resumed on tube feeds. Discharge to subacute. Discharge instructions: Continue taking ciprofloxacin 500 mg 2 times daily from feeding tube for 3 more days to complete antibiotic course Continue all medications as prescribed Recommend start taking daily iron tablets. Aspirin was stopped due to concern for GI bleeding and symptomatic anemia Patient will be discharged to subacute where she would be followed by their primary care physician Discharge diagnosis: #Acute severe blood loss anemia due to GI bleed #Hypotension, improving #Esophagitis with gastritis pattern per EGD, 04/08/2024 #Electrolyte disturbance #Hypokalemia #Hypophosphatemia # Klebsiella UTI #Fluid overload #Bilateral upper extremity swelling #Acute on chronic hypoxic respiratory failure 2/2 Healthcare acquired pneumonia s/p trach tube #Persistent vegetative state post Anoxic brain injury #Quadriplegic #Metabolic alkalosis: Resolved #Leukocytosis #Lactic acidosis Type A, resolved -related to hypotension vs blood loss #Leukocytosis: #Thrombocytopenia #Hx of seizures #Hx Atrial Fib #Hx of GERD and constipation #S/P Peg tube placement Patient care was performed with my attending Dr. Cuellar, Jeremy Alejandro, PGY1 Time Spent with Patient Time attestation: Total time spent providing and/or coordinating discharge services: Exam Vital Signs Temp Pulse Resp BP Pulse Ox O2 Del Method O2 Flow Rate 97.0 F 77 24 H 137/80 H 100 Mechanical Ventilation 40 05/04/24 08:00 05/04/24 08:22 05/04/24 08:00 05/04/24 08:22 05/04/24 08:00 05/04/24 08:00 05/04/24 08:00 FiO2 50 05/04/24 08:00 Narrative Exam Constitutional: Ill-appearing, trached and on the ventilator Head: Normocephalic/Atraumatic Eyes: PERRL , normal conjunctiva ENMT: Dry mucous membranes Neck: tracheostomy in place CVS: RRR, S1 and S2 present, no murmurs, rubs or gallops . RESP: Tachypnic, transmitted upper airways, improved with suctioning, on vent with tracheostomy GI: Nontender/Nondistended. MSK: Swelling of bilateral upper extremities and pitting edema, 2+ of the bilateral lower extremities Skin: Warm to touch, Dry. No rashes or lesions. Neuro: GCS8T, Awake Discharge Plan Plan Patient Disposition: Xfer [facility] Fac (SNF) Patient condition on transfer: Stable Care Plan Goals: Continue taking ciprofloxacin 500 mg 2 times daily from feeding tube for 3 more days to complete antibiotic course Tube feeds: Promote with Fiber at 20 ml/hr via PEG tube by pump. Advance 10 ml every 8 hrs to goal rate of 50 ml/hr x 24 hrs. If no IV fluids, water flushes of 45 ml/hr (or per MD). Continue all medications as prescribed Recommend start taking daily iron tablets. Aspirin was stopped due to concern for GI bleeding and symptomatic anemia Patient will be discharged to subacute where she would be followed by their primary care physician Prescriptions/Referrals Prescriptions/Med Rec: New magnesium hydroxide 400 mg/5 mL suspension 30 ml feeding tube Q6H PRN (Reason: Constipation) 30 Days Qty: 3780 0RF glycopyrrolate 1 mg Tablet 1 mg G-tube QDAY Qty: 30 0RF Ear Wax Removal Drops 6.5 % Drops 5 drp otic (ear) BID Qty: 15 0RF amiodarone 100 mg tablet 100 mg feeding tube QDAY 30 Days Qty: 30 0RF clonazepam 0.5 mg tablet 0.5 mg PO BID Qty: 10 0RF ciprofloxacin HCl 500 mg tablet 500 mg feeding tube BID 3 Days Qty: 6 0RF ferrous fumarate 325 mg (106 mg iron) tablet 325 mg feeding tube .qod Qty: 90 0RF Continued levetiracetam [Keppra] 750 mg Tablet 750 mg PO BID furosemide [Lasix] 20 mg Tablet 20 mg feeding tube QDAY multivitamin with minerals Tablet 1 tab PO DAILY Rx Instructions: feeding tube acetaminophen [Tylenol] 325 mg Tablet 650 mg PO QID PRN (Reason: Pain) bisacodyl [Dulcolax (bisacodyl)] 10 mg Suppository 10 mg NV DAILY PRN (Reason: Constipation) Rx Instructions: if mom is uneffective Fleet Enema 19-7 gram/118 mL Enema 118 ml NV QDAY PRN (Reason: Constipation) Rx Instructions: if dulcolax suppository ineffective Discontinued clonazepam 0.5 mg Tablet,Disintegrating 0.5 mg feeding tube TID amiodarone 200 mg Tablet 200 mg PO BID 30 Days Qty: 60 0RF aspirin 81 mg capsule 81 mg PO QDAY Qty: 30 0RF amoxicillin-pot clavulanate [Augmentin] 500-125 mg tablet 1 tab PO Q8H Qty: 2 0RF doxycycline calcium 50 mg/5 mL syrup 100 mg PO QDAY Qty: 473 0RF Referrals: No Primary/Family,Physician [Primary Care Provider] - Patient/Caregiver Discharge Instructions Discharge Activity: activity as tolerated Print Language: Palestinian Stand Alone Forms: [facility] Award Info., Patient Portal Info Letter Discharge Order Discharge Orders: Discharge (Routine); Ordered 05/04/24 Ordered By: Candido Mann Quality Discharge Quality Measures VTE prophylaxis (SCDs) MD Attestestation MD Attestation I have examined the patient, reviewed labs and imaging findings, discussed the case with the resident(s), and reviewed entered orders. I agree with the plan of care as outlined in this note. Dr. Cuellar
--- NOTE | 2024-05-04 11:38 | PC.NURSE ---
Report given to Joy at [facility] of patient status. [facility] nurse requested that the patient not be transfered until the [facility] is finished as long as the transfer is before 5PM this evening.
[2024-05-04] MEDS: ALBUTEROL/IPRATROPIUM (Duoneb) RT SOL 3 ML NEBU INH (16:19)
== END 2024-05-04 16:00 | disposition skilled nursing facility (03) | DRG 377 ==
LOC: SERX 12:08 → SERHOLD 12:12 → S2NX 20:30
PROVIDERS: Specialist; Student in an Organized Health Care Education/Training Program; Admitting Provider Student in an Organized Health Care Education/Training Program; Emergency Provider Emergency Medicine; Visit Provider Student in an Organized Health Care Education/Training Program
PROC: 0DJD8ZZ Inspection of Lower Intestinal Tract, Via Natural or Artificial Opening Endoscopic (ICD-10-PCS; CPT 45378; principal; 2024-05-02 16:30)
DX: K29.71 Gastritis, unspecified, with bleeding (principal); G82.50 Quadriplegia, unspecified; J18.9 Pneumonia, unspecified organism; J96.21 Acute and chronic respiratory failure with hypoxia; D62 Acute posthemorrhagic anemia; R40.3 Persistent vegetative state; E87.4 Mixed disorder of acid-base balance; N39.0 Urinary tract infection, site not specified; G93.1 Anoxic brain damage, not elsewhere classified; Z16.11 Resistance to penicillins; Z99.11 Dependence on respirator [ventilator] status; K21.01 Gastro-esophageal reflux disease with esophagitis, with bleeding; I11.0 Hypertensive heart disease with heart failure; I50.9 Heart failure, unspecified; K64.9 Unspecified hemorrhoids; K57.30 Diverticulosis of large intestine without perforation or abscess without bleeding; B96.1 Klebsiella pneumoniae [K. pneumoniae] as the cause of diseases classified elsewhere; D69.6 Thrombocytopenia, unspecified; E83.39 Other disorders of phosphorus metabolism; G40.909 Epilepsy, unspecified, not intractable, without status epilepticus; I95.9 Hypotension, unspecified; Y95 Nosocomial condition; I48.91 Unspecified atrial fibrillation; T39.015A Adverse effect of aspirin, initial encounter; J45.909 Unspecified asthma, uncomplicated; Z66 Do not resuscitate; Z93.0 Tracheostomy status; Z93.1 Gastrostomy status; E87.6 Hypokalemia; Z79.899 Other long term (current) drug therapy
CPT/HCPCS: 36415; 36430; 36600; 71045; 80048; 80053; 81001; 82803; 83605; 83690; 83735; 84100; 84132; 84439; 84443; 85014; 85018; 85025; 85610; 85730; 86850; 86900; 86901; 86923; 87040; 87077; 87081; 87086; 87186; 93005; 94003; 94640; 96365; 96374; 99291; A4217; A9270; J0696; J1200; J1940; J2250; J2310; J2470; J2543; J3010; J3411; J3475; J3480; J3490; J7030; J7040; J7070; J7120; P9016